=== PATIENT | female | born 1930 | race Caucasian/White ===

== ENCOUNTER 2017-11-10 07:41 | Inpatient (IN) | payer MEDICARE ==
[2017-11-10] MEDS: IV NORMAL SALINE 1000ML BAG 1,000 ML IV (07:51)
[2017-11-10 08:11] LABS: ADD MAN DIFF? NO
[2017-11-10] MEDS: ASPIRIN 325 MG TABLET PO (08:15)
[2017-11-10 08:18] LABS: BASO # 0.1 x10^3/uL (0.0-0.2); BASO % 1 % (0-3); EOS # 0.5 x10^3/uL (0.0-0.7); EOS % 4 % (0-3); HEMATOCRIT 38.9 % (36.0-47.0); HEMOGLOBIN 13.2 g/dL (12.0-15.5); LYMPH # 1.7 x10^3/uL (1.0-4.8); LYMPH % 16 % (24-48); MEAN CORPUSCULAR HEMOGLOBIN 33 pg (25-35); MEAN CORPUSCULAR HGB CONC 34 g/dL (31-37); MEAN CORPUSCULAR VOLUME 98 fL (79-100); MONO # 0.9 x10^3/uL (0.0-1.1); MONO % 8 % (0-9); NEUT # 7.8 x10^3uL (1.8-7.7); NEUT % 72 % (31-73); PLATELET COUNT 250 x10^3/uL (140-400); RED BLOOD COUNT 3.99 x10^6/uL (3.50-5.40); RED CELL DISTRIBUTION WIDTH 13.5 % (11.5-14.5); WHITE BLOOD COUNT 10.9 x10^3/uL (4.0-11.0)
[2017-11-10 08:38] LABS: PARTIAL THROMBOPLASTIN TIME 26 SEC (24-38); PROTHROMBIN TIME PATIENT 12.8 SEC (11.7-14.0)
[2017-11-10 08:52] LABS: POC GLUCOSE 94 mg/dL (70-99)
[2017-11-10 08:57] LABS: ANION GAP 7 (6-14); BLOOD UREA NITROGEN 25 mg/dL (7-20); BUN/CREATININE RATIO 15 (6-20); CALCIUM 8.9 mg/dL (8.5-10.1); CARBON DIOXIDE 26 mmol/L (21-32); CHLORIDE 103 mmol/L (98-107); CREATININE 1.7 mg/dL (0.6-1.0); GFR 28.3; GLUCOSE 105 mg/dL (70-99); POTASSIUM 4.2 mmol/L (3.5-5.1); SODIUM 136 mmol/L (136-145)
[2017-11-10 09:03] LABS: ALBUMIN/GLOBULIN RATIO 0.7 (1.0-1.7); ALK PHOS 55 U/L (46-116); ALT (SGPT) 33 U/L (14-59); AST (SGOT) 40 U/L (15-37); MAGNESIUM 2.1 mg/dL (1.8-2.4); TOTAL BILIRUBIN 0.5 mg/dL (0.2-1.0); TOTAL PROTEIN 7.1 g/dL (6.4-8.2)
[2017-11-10 09:12] LABS: BACTERIA,URINE 0 /HPF (0-FEW); BILIRUBIN,URINE NEGATIVE (NEG); CLARITY,URINE CLEAR; COLOR,URINE YELLOW; GLUCOSE,URINE NEGATIVE (NEG); NITRITE,URINE NEGATIVE (NEG); PH,URINE 7.5; PROTEIN,URINE 100 mg/dL (NEG-TRACE); RBC,URINE 0 /HPF (0-2); SQUAMOUS EPITHELIAL CELL,UR FEW /LPF; UROBILINOGEN,URINE 0.2 mg/dL (0.2 mg/dL); WBC,URINE 0 /HPF (0-4)
[2017-11-10] MEDS ORDERED: ACETAMINOPHEN 325 MG TABLET. PO (14:15)
[2017-11-10] MEDS ORDERED: ASPIRIN 300 MG SUPP.RECT PR (14:15)
[2017-11-10] MEDS: ENOXAPARIN 30 MG/0.3 ML SYRINGE. SQ (15:21)
[2017-11-10] MEDS: AMINO AC 3%/ELECTROLYTE/GLYCER 1,000 ML IV (15:21)
[2017-11-10] MEDS ORDERED: ENALAPRILAT 1.25 MG/ML VIAL. IV (18:00)
[2017-11-10] MEDS: ENALAPRILAT 1.25 MG/ML VIAL. IV (22:25)
[2017-11-11 00:13] LABS: MRSA BY PCR Negative (Negative)
[2017-11-11] MEDS: AMINO AC 3%/ELECTROLYTE/GLYCER 1,000 ML IV ×2 (04:07→17:40)
[2017-11-11 05:47] LABS: CHOLESTEROL 146 mg/dL (0-200); HDLC 47 mg/dL (40-60); LDLC 64 mg/dL (0-100); NON-HDL CHOLESTEROL 99 mg/dL (0-129); TRIGLYCERIDES 176 mg/dL (0-150); VLDLC 35 mg/dL (0-40)
[2017-11-11 05:53] LABS: CHOLESTEROL/HDL RATIO 3.1
[2017-11-11] MEDS: ASPIRIN 300 MG SUPP.RECT PR (12:45)
[2017-11-11] MEDS: ENOXAPARIN 30 MG/0.3 ML SYRINGE. SQ (12:46)
[2017-11-11] MEDS: ENALAPRILAT 1.25 MG/ML VIAL. IV (23:24)
[2017-11-12] MEDS: AMINO AC 3%/ELECTROLYTE/GLYCER 1,000 ML IV ×2 (05:37→19:31)
[2017-11-12] MEDS: ASPIRIN 300 MG SUPP.RECT PR (08:08)
[2017-11-12] MEDS: ENOXAPARIN 30 MG/0.3 ML SYRINGE. SQ (15:55)
[2017-11-13] MEDS: AMINO AC 3%/ELECTROLYTE/GLYCER 1,000 ML IV (08:23)
[2017-11-13] MEDS: ASPIRIN 300 MG SUPP.RECT PR (08:24)
[2017-11-13] MEDS ORDERED: ceFAZolin SODIUM 1 GM in IV DEXTROSE 5% 100ML 100 ML IV (11:00)
[2017-11-13] MEDS: ceFAZolin SODIUM IV Push 1 GM VIAL. IVP (13:13)
[2017-11-13] MEDS ORDERED: IV RINGERS,LACTATED 1000ML 1,000 ML IV (13:15)
[2017-11-13] MEDS: ENOXAPARIN 30 MG/0.3 ML SYRINGE. SQ (14:30)
[2017-11-14] MEDS: AMINO AC 3%/ELECTROLYTE/GLYCER 1,000 ML IV (00:20)
[2017-11-14] MEDS: ACETAMINOPHEN 650 MG SUPP.RECT. PR (02:32)
[2017-11-14 07:39] LABS: ADD MAN DIFF? NO
[2017-11-14 07:44] LABS: BASO % 0 % (0-3); EOS # 0.1 x10^3/uL (0.0-0.7); EOS % 1 % (0-3); HEMATOCRIT 35.9 % (36.0-47.0); HEMOGLOBIN 12.3 g/dL (12.0-15.5); LYMPH # 1.1 x10^3/uL (1.0-4.8); LYMPH % 11 % (24-48); MEAN CORPUSCULAR HEMOGLOBIN 33 pg (25-35); MEAN CORPUSCULAR HGB CONC 34 g/dL (31-37); MEAN CORPUSCULAR VOLUME 96 fL (79-100); MONO # 1.2 x10^3/uL (0.0-1.1); MONO % 11 % (0-9); NEUT # 7.9 x10^3uL (1.8-7.7); NEUT % 77 % (31-73); PLATELET COUNT 230 x10^3/uL (140-400); RED BLOOD COUNT 3.74 x10^6/uL (3.50-5.40); WHITE BLOOD COUNT 10.3 x10^3/uL (4.0-11.0)
[2017-11-14 08:43] LABS: ANION GAP 11 (6-14); BLOOD UREA NITROGEN 50 mg/dL (7-20); CALCIUM 8.5 mg/dL (8.5-10.1); CARBON DIOXIDE 20 mmol/L (21-32); CHLORIDE 98 mmol/L (98-107); CREATININE 1.3 mg/dL (0.6-1.0); GFR 38.6; GLUCOSE 96 mg/dL (70-99); POTASSIUM 4.5 mmol/L (3.5-5.1); SODIUM 129 mmol/L (136-145)
[2017-11-14] MEDS: ASPIRIN 325 MG TABLET PO (08:45)
[2017-11-15 07:50] LABS: ADD MAN DIFF? NO
[2017-11-15 07:58] LABS: BASO % 0 % (0-3); EOS # 0.4 x10^3/uL (0.0-0.7); EOS % 5 % (0-3); HEMATOCRIT 36.4 % (36.0-47.0); HEMOGLOBIN 12.4 g/dL (12.0-15.5); LYMPH # 0.9 x10^3/uL (1.0-4.8); LYMPH % 11 % (24-48); MEAN CORPUSCULAR HEMOGLOBIN 33 pg (25-35); MEAN CORPUSCULAR HGB CONC 34 g/dL (31-37); MEAN CORPUSCULAR VOLUME 96 fL (79-100); MONO # 0.9 x10^3/uL (0.0-1.1); MONO % 10 % (0-9); NEUT # 6.2 x10^3uL (1.8-7.7); NEUT % 74 % (31-73); PLATELET COUNT 276 x10^3/uL (140-400); RED CELL DISTRIBUTION WIDTH 13.3 % (11.5-14.5); WHITE BLOOD COUNT 8.4 x10^3/uL (4.0-11.0)
[2017-11-15 08:16] LABS: BLOOD UREA NITROGEN 45 mg/dL (7-20); CALCIUM 8.7 mg/dL (8.5-10.1); CREATININE 1.2 mg/dL (0.6-1.0); GLUCOSE 102 mg/dL (70-99)
[2017-11-15 08:17] LABS: ANION GAP 12 (6-14); CARBON DIOXIDE 20 mmol/L (21-32); CHLORIDE 100 mmol/L (98-107); GFR 42.3; POTASSIUM 4.3 mmol/L (3.5-5.1); SODIUM 132 mmol/L (136-145)
[2017-11-15] MEDS: ASPIRIN 325 MG TABLET PEG (08:36)
== END 2017-11-15 16:33 | DRG 64 ==
LOC: 6 SOUTH 11-11 18:56 → ER 07:41 → 2 SOUTH 09:00
PROVIDERS: Internal Medicine
PROC: 0DH68UZ Insertion of Feeding Device into Stomach, Via Natural or Artificial Opening Endoscopic (ICD-10-PCS; principal; 2017-11-13 14:12)
DX: I63.512 Cerebral infarction due to unspecified occlusion or stenosis of left middle cerebral artery (principal); N17.0 Acute kidney failure with tubular necrosis; I69.351 Hemiplegia and hemiparesis following cerebral infarction affecting right dominant side; E78.5 Hyperlipidemia, unspecified; F03.90 Unspecified dementia, unspecified severity, without behavioral disturbance, psychotic disturbance, mood disturbance, and anxiety; F31.9 Bipolar disorder, unspecified; I69.320 Aphasia following cerebral infarction; K21.9 Gastro-esophageal reflux disease without esophagitis; K44.9 Diaphragmatic hernia without obstruction or gangrene; M06.9 Rheumatoid arthritis, unspecified; M19.041 Primary osteoarthritis, right hand; R13.12 Dysphagia, oropharyngeal phase; Z96.641 Presence of right artificial hip joint; K22.2 Esophageal obstruction; R62.7 Adult failure to thrive; Z66 Do not resuscitate; Z82.49 Family history of ischemic heart disease and other diseases of the circulatory system; Z90.12 Acquired absence of left breast and nipple; Z85.3 Personal history of malignant neoplasm of breast; Z88.2 Allergy status to sulfonamides; Z88.8 Allergy status to other drugs, medicaments and biological substances
CPT/HCPCS: 36415; 70450; 70551; 71045; 80048; 80053; 80061; 81001; 82962; 83735; 85025; 85610; 85730; 87641; 92526-GN; 92610-GN; 93005; 93306; 93880; 96360; 97110-GO; 97162-GP; 97166-GO; 97530-GO; 97530-GP; 97535-GO; 99285; 99285-25; J0690; J1650; J7030; P9612

== ENCOUNTER 2017-11-21 17:43 | Inpatient (IN) | payer MEDICARE, OTHER ==
[~2017-11-21] VITALS: Ht 165.1 cm; Wt 447.2 kg
--- NOTE | 2017-11-21 18:06 | PHYS DOC ---
Past Medical History Past Medical History: Bipolar, CAD, Cancer, Constipation, Depression, High Cholesterol Additional Past Medical Histor: BREAST CANCNER Past Surgical History: Other Additional Past Surgical Histo: L MASECTOMY, UNKNOWN OTHER SX Alcohol Use: None Adult General Chief Complaint Chief Complaint: SHORTNESS OF BREATH [facility] HPI Patient is a 87 year old with a history of a stroke in October (residual aphasia and right-sided hemiparesis) presents the ED for abnormal labs times one day ago. Sent to the ED by assisted-living facility for possible pneumonia, elevated white count and coarse breath sounds. Patient unable to provide history as she is aphasic. Review of Systems Review of Systems Constitutional: Denies fever or chills [] Eyes: Denies change in visual acuity, redness, or eye pain [] HENT: Denies nasal congestion or sore throat [] Respiratory: Denies cough or shortness of breath [] Cardiovascular: No additional information not addressed in HPI [] GI: Denies abdominal pain, nausea, vomiting, bloody stools or diarrhea [] : Denies dysuria or hematuria [] Musculoskeletal: Denies back pain or joint pain [] Integument: Denies rash or skin lesions [] Neurologic: Denies headache, focal weakness or sensory changes [] All other systems were reviewed and found to be within normal limits, except as documented in this note. Current Medications Current Medications Allergies Allergies Allergies Coded Allergies Type Severity Reaction Last Updated Verified sulfamethoxazole Allergy Intermediate 11/13/17 Yes trimethoprim Allergy Intermediate 11/13/17 Yes Physical Exam Physical Exam Constitutional: no acute distress, non-toxic appearance. [] HENT: Normocephalic, atraumatic, bilateral external ears normal, oropharynx moist, no oral exudates, nose normal. [] Eyes: PERRLA, EOMI, conjunctiva normal, no discharge. [] Neck: Normal range of motion, no tenderness, supple, no stridor. [] Cardiovascular:Heart rate regular rhythm, no murmur [] Lungs & Thorax: Bilateral breath sounds clear to auscultation [] Abdomen: Bowel sounds normal, soft, no tenderness, no masses, no pulsatile masses. [] Skin: Warm, dry, no erythema, no rash. [] Back: No tenderness, no CVA tenderness. [] Extremities: No tenderness, no cyanosis, no clubbing, ROM intact, no edema. [] Neurologic: aphasic, right hemiparesis. Psychologic: Affect normal, judgement normal, mood normal. [] Current Patient Data Vital Signs Vital Signs Date Time Temp Pulse Resp B/P (MAP) Pulse Ox O2 Delivery O2 Flow Rate FiO2 11/21/17 17:55 98.1 87 22 156/93 (114) 95 Room Air 98.1 Lab Values Laboratory Tests Test 11/21/17 18:25 11/21/17 18:44 White Blood Count 14.4 x10^3/uL (4.0-11.0) H Red Blood Count 3.71 x10^6/uL (3.50-5.40) Hemoglobin 11.8 g/dL (12.0-15.5) L Hematocrit 34.9 % (36.0-47.0) L Mean Corpuscular Volume 94 fL (79-100) Mean Corpuscular Hemoglobin 32 pg (25-35) Mean Corpuscular Hemoglobin Concent 34 g/dL (31-37) Red Cell Distribution Width 13.1 % (11.5-14.5) Platelet Count 466 x10^3/uL (140-400) H Neutrophils (%) (Auto) 79 % (31-73) H Lymphocytes (%) (Auto) 11 % (24-48) L Monocytes (%) (Auto) 9 % (0-9) Eosinophils (%) (Auto) 1 % (0-3) Basophils (%) (Auto) 1 % (0-3) Neutrophils # (Auto) 11.3 x10^3uL (1.8-7.7) H Lymphocytes # (Auto) 1.5 x10^3/uL (1.0-4.8) Monocytes # (Auto) 1.3 x10^3/uL (0.0-1.1) H Eosinophils # (Auto) 0.1 x10^3/uL (0.0-0.7) Basophils # (Auto) 0.1 x10^3/uL (0.0-0.2) Lactic Acid Level 1.2 mmol/L (0.4-2.0) Sodium Level 130 mmol/L (136-145) L Potassium Level 4.7 mmol/L (3.5-5.1) Chloride Level 96 mmol/L (98-107) L Carbon Dioxide Level 26 mmol/L (21-32) Anion Gap 8 (6-14) Blood Urea Nitrogen 46 mg/dL (7-20) H Creatinine 1.1 mg/dL (0.6-1.0) H Estimated GFR (Cockcroft-Gault) 46.8 BUN/Creatinine Ratio 42 (6-20) H Glucose Level 105 mg/dL (70-99) H Calcium Level 9.4 mg/dL (8.5-10.1) Total Bilirubin 0.3 mg/dL (0.2-1.0) Aspartate Amino Transferase (AST) 57 U/L (15-37) H Alanine Aminotransferase (ALT) 75 U/L (14-59) H Alkaline Phosphatase 66 U/L (46-116) Troponin I Quantitative < 0.017 ng/mL (0.000-0.055) JQ-Tws-D-Type Natriuretic Peptide 1190 pg/mL (0-449) H Total Protein 7.1 g/dL (6.4-8.2) Albumin 2.6 g/dL (3.4-5.0) L Albumin/Globulin Ratio 0.6 (1.0-1.7) L Lipase 218 U/L (73-393) Thyroid Stimulating Hormone (TSH) 1.768 uIU/mL (0.358-3.74) Laboratory Tests 11/21/17 18:25 Laboratory Tests 11/21/17 18:44 Microbiology 11/21/17 Blood Culture - Preliminary, Resulted NO GROWTH AFTER 1 DAY EKG EKG EKG shows sinus rhythm at 81 BPM. T wave inversion in V3, V4, V5. No STEMI.[] Radiology/Procedures Radiology/Procedures [] Course & Med Decision Making Course & Med Decision Making Pertinent Labs and Imaging studies reviewed. (See chart for details) Family at bedside provides further history. Noting decline since stroke in October. Discussed labs and imaging with family. Left sided pneumonia. Will treat with zosyn and vanco. []Discussed case with hospitalist, Dr. Gonzales. Agrees to admission and further management of patient. Patient stable for admission. Dragon Disclaimer Dragon Disclaimer This electronic medical record was generated, in whole or in part, using a voice recognition dictation system. Departure Departure Impression: Primary Impression: Pneumonia Additional Impressions: UTI (urinary tract infection) Hyponatremia Disposition: ADMITTED INPATIENT Admitting Physician: Etta Gonzales Condition: STABLE Referrals: ELDA DE LA CRUZ MD (PCP) Problem Qualifiers CESAR MENA Nov 21, 2017 18:06
[2017-11-21 18:40] LABS: BASO # 0.1 x10^3/uL (0.0-0.2); BASO % 1 % (0-3); EOS # 0.1 x10^3/uL (0.0-0.7); EOS % 1 % (0-3); HEMATOCRIT 34.9 % (36.0-47.0); HEMOGLOBIN 11.8 g/dL (12.0-15.5); LYMPH # 1.5 x10^3/uL (1.0-4.8); LYMPH % 11 % (24-48); MEAN CORPUSCULAR HEMOGLOBIN 32 pg (25-35); MEAN CORPUSCULAR HGB CONC 34 g/dL (31-37); MEAN CORPUSCULAR VOLUME 94 fL (79-100); MONO # 1.3 x10^3/uL (0.0-1.1); MONO % 9 % (0-9); NEUT # 11.3 x10^3uL (1.8-7.7); NEUT % 79 % (31-73); PLATELET COUNT 466 x10^3/uL (140-400); RED BLOOD COUNT 3.71 x10^6/uL (3.50-5.40); RED CELL DISTRIBUTION WIDTH 13.1 % (11.5-14.5); WHITE BLOOD COUNT 14.4 x10^3/uL (4.0-11.0)
[2017-11-21 19:23] LABS: CALCIUM 9.4 mg/dL (8.5-10.1); CREATININE 1.1 mg/dL (0.6-1.0); GFR 46.8; POTASSIUM 4.7 mmol/L (3.5-5.1)
[2017-11-21 19:28] LABS: ALBUMIN 2.6 g/dL (3.4-5.0); ALBUMIN/GLOBULIN RATIO 0.6 (1.0-1.7); TOTAL BILIRUBIN 0.3 mg/dL (0.2-1.0); TOTAL PROTEIN 7.1 g/dL (6.4-8.2)
[2017-11-21] MEDS ORDERED: VANCOMYCIN 1GM IVPB FOR OMNI 250 ML IV ONE (20:00)
[2017-11-21] MEDS ORDERED: PIPERACILLIN/TAZOBACTAM 4.5 GM in IV NORMAL SALINE 100ML 100 ML IV ONE (20:00)
[2017-11-21] MEDS ORDERED: PIPERACILLIN/TAZOBACTAM 3.375 GM in IV NORMAL SALINE 50ML 50 ML IV ONE (20:00)
[2017-11-21 20:20] LABS: BILIRUBIN,URINE NEGATIVE (NEG); CLARITY,URINE CLEAR; COLOR,URINE YELLOW; NITRITE,URINE POSITIVE (NEG); PROTEIN,URINE NEGATIVE (NEG-TRACE); UROBILINOGEN,URINE 0.2 mg/dL (0.2 mg/dL)
[2017-11-21 20:26] LABS: BACTERIA,URINE MANY /HPF (0-FEW); RBC,URINE OCC /HPF (0-2); SQUAMOUS EPITHELIAL CELL,UR FEW /LPF
[2017-11-21] MEDS ORDERED: ONDANSETRON PF 4 MG/2 ML VIAL. IV PRN (20:45)
[2017-11-21] MEDS ORDERED: fentaNYL PF VIAL 100 MCG/2 ML VIAL IV PRN (20:45)
[2017-11-21] MEDS ORDERED: ACETAMINOPHEN 325 MG TABLET. PO PRN (20:45)
[2017-11-21] MEDS ORDERED: FLUV100T2 PO (22:25)
[2017-11-21] MEDS ORDERED: ONDA4TAB7 PO (22:25)
[2017-11-21] MEDS ORDERED: [UNRECOGNIZED DRUG - CODE] PO (22:25)
[2017-11-21] MEDS ORDERED: TRAZ-85 PO (22:25)
[2017-11-21] MEDS ORDERED: DOCU50LI PO (22:25)
[2017-11-21] MEDS ORDERED: MAGN400O7 PO (22:25)
[2017-11-21] MEDS ORDERED: CALC1CAP7 PO (22:25)
[2017-11-21] MEDS ORDERED: BISA5TAB6 PO (22:25)
[2017-11-21] MEDS ORDERED: CYCL1DRO EACHEYE (22:25)
[2017-11-21] MEDS ORDERED: ACET325T9 PO (22:25)
[2017-11-21] MEDS ORDERED: MAG355OR12 PO ×2 (22:25)
[2017-11-21] MEDS ORDERED: MULT1TAB52 PO (22:25)
[2017-11-21] MEDS ORDERED: TRIF5TAB PO (22:25)
[2017-11-21] MEDS ORDERED: SCOP1PAT11 TP (22:25)
[2017-11-21] MEDS ORDERED: LEVO25TA4 PO (22:25)
[2017-11-21] MEDS ORDERED: MICO45CR3 VG (22:25)
[2017-11-21] MEDS ORDERED: MIRT15TA PO (22:25)
[2017-11-21] MEDS ORDERED: LOPE2TAB27 PO (22:25)
[2017-11-21] MEDS ORDERED: ASPI325T8 PO (22:25)
--- NOTE | 2017-11-21 22:28 | PDOC1 ---
History and Physical Date of Admission Date of Admission DATE: 11/21/17 TIME: 22:27 Source Source: Chart review History of Present Illness History of Present Illness Luana Mclean is a 87 year old seenin ER 17 for some distress above baseline, sent by her facility for coarse breath sounds, an dnoted to have leukocytosis on labs. Scant history as she is aphasic with right-sided hemiparesis s/p CVA about 1 month ago, she presneted with fever, and tachycardia and tachypnea. Past Medical History Cardiovascular: Hyperlipidemia, Other CENTRAL NERVOUS SYSTEM: CVA Heme/Onc: Cancer Psych: Bipolar, Depression Rheumatologic: Rheumatoid arthritis Past Surgical History Past Surgical History: Total hip replacement Social History ALCOHOL: none Drugs: None Current Problem List Problem List Problems Medical Problems: (1) Hyponatremia Status: Acute (2) Pneumonia Status: Acute (3) UTI (urinary tract infection) Status: Acute Current Medications Current Medications Current Medications Vancomycin HCl 250 ml @ 250 mls/hr 1X ONCE IV ; Start 11/21/17 at 20:00; Stop 11/21/17 at 20:59; Status DC Piperacillin Sod/ Tazobactam Sod 4.5 gm/Sodium Chloride 100 ml @ 200 mls/hr 1X ONCE IV ; Start 11/21/17 at 20:00; Stop 11/21/17 at 20:29; Status Cancel Piperacillin Sod/ Tazobactam Sod 3.375 gm/Sodium Chloride 50 ml @ 100 mls/hr ONCE ONCE IV Last administered on 11/21/17at 20:35; Start 11/21/17 at 20:00; Stop 11/21/17 at 20:29; Status DC Ondansetron HCl (Zofran) 4 mg PRN Q8HRS PRN IV NAUSEA/VOMITING; Start 11/21/17 at 20:45; Stop 11/22/17 at 20:44 Fentanyl Citrate (Fentanyl 2ml Vial) 50 mcg PRN Q1HR PRN IV PAIN; Start at 20:45; Stop 11/22/17 at 20:44 Acetaminophen (Tylenol) 650 mg PRN Q4HRS PRN PO FEVER; Start 11/21/17 at 20:45; Stop 11/22/17 at 20:44 Active Scripts Active Reported Transderm-Scop (Scopolamine) 1 Each Patch.td72 1 Patch TP Q3DAYS Levothyroxine Sodium 25 Mcg Tablet 1 Tab PO DAILY Trifluoperazine Hcl 5 Mg Tablet 5 Mg PO DAILY Loperamide (Loperamide Hcl) 2 Mg Tablet 4 Mg PO PRN Q1HR PRN Remeron (Mirtazapine) 15 Mg Tablet 1 Tab PO DAILY Fluvoxamine Maleate 100 Mg Tablet 1 Tab PO DAILY Trazodone Hcl 50 Mg Tablet 1 Tab PO QHS Fibersource Hn Liquid (Nutrit Supp/Inulin/Fos/Fiber) 1,500 Ml Liquid 1,500 Ml PO Q8HRS Maalox Maximum Strength Susp (Mag Hydrox/Al Hydrox/Simeth) 355 Ml Oral.susp 355 Ml PO PRN Q6HRS PRN Maalox Maximum Strength Susp (Mag Hydrox/Al Hydrox/Simeth) 355 Ml Oral.susp 355 Ml PO Milk Of Magnesia (Magnesium Hydroxide) 400 Mg/5 Ml Oral.susp 400 Mg PO PRN BID PRN Tylenol (Acetaminophen) 325 Mg Tablet 2 Tab PO PRN Q6HRS PRN Tylenol (Acetaminophen) 325 Mg Tablet 2 Tab PO PRN Q6HRS PRN Restasis (Cyclosporine) 1 Each Droperette 1 Drop EACHEYE BID Multivitamins (Multivitamin) 1 Each Tablet 1 Tab PO DAILY Miconazole Nitrate 45 Gm Cream.appl 45 Gm VG Women's Laxative (Bisacodyl) 5 Mg Tablet 5 Mg PO Aspirin 325 Mg Tablet 1 Tab PO DAILY Calcium 600 + Vit D 400 Softgl (Calcium Carbonate/Vitamin D3) 1 Each Capsule 1 Each PO Docusate Sodium 50 Mg/5 Ml Liquid 50 Mg PO Zofran (Ondansetron Hcl) 4 Mg Tablet 1 Tab PO Q6HRS Allergies Allergies: Coded Allergies: sulfamethoxazole (Verified Allergy, Intermediate, 11/13/17) trimethoprim (Verified Allergy, Intermediate, 11/13/17) ROS Review of System unable to complete Physical Exam General: Cooperative, mild distress HEENT: EOMI Lungs: Other (rhonchi, no wheeze) Heart: no murmurs Extremities: No edema Neuro: Normal tone, Cranial nerves 3-12 NL, Other Psych/Mental Status: Other (flat, aphasic ) Vitals Vitals Vital Signs Date Time Temp Pulse Resp B/P (MAP) Pulse Ox O2 Delivery O2 Flow Rate FiO2 11/21/17 17:55 98.1 87 22 156/93 (114) 95 Room Air 98.1 Labs Labs Laboratory Tests Test 11/21/17 18:25 11/21/17 18:44 11/21/17 20:10 White Blood Count 14.4 x10^3/uL (4.0-11.0) Red Blood Count 3.71 x10^6/uL (3.50-5.40) Hemoglobin 11.8 g/dL (12.0-15.5) Hematocrit 34.9 % (36.0-47.0) Mean Corpuscular Volume 94 fL (79-100) Mean Corpuscular Hemoglobin 32 pg (25-35) Mean Corpuscular Hemoglobin Concent 34 g/dL (31-37) Red Cell Distribution Width 13.1 % (11.5-14.5) Platelet Count 466 x10^3/uL (140-400) Neutrophils (%) (Auto) 79 % (31-73) Lymphocytes (%) (Auto) 11 % (24-48) Monocytes (%) (Auto) 9 % (0-9) Eosinophils (%) (Auto) 1 % (0-3) Basophils (%) (Auto) 1 % (0-3) Neutrophils # (Auto) 11.3 x10^3uL (1.8-7.7) Lymphocytes # (Auto) 1.5 x10^3/uL (1.0-4.8) Monocytes # (Auto) 1.3 x10^3/uL (0.0-1.1) Eosinophils # (Auto) 0.1 x10^3/uL (0.0-0.7) Basophils # (Auto) 0.1 x10^3/uL (0.0-0.2) Lactic Acid Level 1.2 mmol/L (0.4-2.0) Sodium Level 130 mmol/L (136-145) Potassium Level 4.7 mmol/L (3.5-5.1) Chloride Level 96 mmol/L (98-107) Carbon Dioxide Level 26 mmol/L (21-32) Anion Gap 8 (6-14) Blood Urea Nitrogen 46 mg/dL (7-20) Creatinine 1.1 mg/dL (0.6-1.0) Estimated GFR (Cockcroft-Gault) 46.8 BUN/Creatinine Ratio 42 (6-20) Glucose Level 105 mg/dL (70-99) Calcium Level 9.4 mg/dL (8.5-10.1) Total Bilirubin 0.3 mg/dL (0.2-1.0) Aspartate Amino Transf (AST/SGOT) 57 U/L (15-37) Alanine Aminotransferase (ALT/SGPT) 75 U/L (14-59) Alkaline Phosphatase 66 U/L (46-116) Troponin I Quantitative < 0.017 ng/mL (0.000-0.055) JD-Ewp-N-Type Natriuretic Peptide 1190 pg/mL (0-449) Total Protein 7.1 g/dL (6.4-8.2) Albumin 2.6 g/dL (3.4-5.0) Albumin/Globulin Ratio 0.6 (1.0-1.7) Lipase 218 U/L (73-393) Thyroid Stimulating Hormone (TSH) 1.768 uIU/mL (0.358-3.74) Urine Collection Type Unknown Urine Color Yellow Urine Clarity Clear Urine pH 7.0 Urine Specific [place] 1.015 Urine Protein Negative mg/dL (NEG-TRACE) Urine Glucose (UA) Negative mg/dL (NEG) Urine Ketones (Stick) Negative mg/dL (NEG) Urine Blood Negative (NEG) Urine Nitrite Positive (NEG) Urine Bilirubin Negative (NEG) Urine Urobilinogen Dipstick 0.2 mg/dL (0.2 mg/dL) Urine Leukocyte Esterase Large (NEG) Urine RBC Occ /HPF (0-2) Urine WBC 5-10 /HPF (0-4) Urine Squamous Epithelial Cells Few /LPF Urine Renal Epithelial Cells Occ /LPF Urine Bacteria Many /HPF (0-FEW) Laboratory Tests Test 11/21/17 18:25 11/21/17 18:44 11/21/17 20:10 White Blood Count 14.4 x10^3/uL (4.0-11.0) Red Blood Count 3.71 x10^6/uL (3.50-5.40) Hemoglobin 11.8 g/dL (12.0-15.5) Hematocrit 34.9 % (36.0-47.0) Mean Corpuscular Volume 94 fL (79-100) Mean Corpuscular Hemoglobin 32 pg (25-35) Mean Corpuscular Hemoglobin Concent 34 g/dL (31-37) Red Cell Distribution Width 13.1 % (11.5-14.5) Platelet Count 466 x10^3/uL (140-400) Neutrophils (%) (Auto) 79 % (31-73) Lymphocytes (%) (Auto) 11 % (24-48) Monocytes (%) (Auto) 9 % (0-9) Eosinophils (%) (Auto) 1 % (0-3) Basophils (%) (Auto) 1 % (0-3) Neutrophils # (Auto) 11.3 x10^3uL (1.8-7.7) Lymphocytes # (Auto) 1.5 x10^3/uL (1.0-4.8) Monocytes # (Auto) 1.3 x10^3/uL (0.0-1.1) Eosinophils # (Auto) 0.1 x10^3/uL (0.0-0.7) Basophils # (Auto) 0.1 x10^3/uL (0.0-0.2) Lactic Acid Level 1.2 mmol/L (0.4-2.0) Sodium Level 130 mmol/L (136-145) Potassium Level 4.7 mmol/L (3.5-5.1) Chloride Level 96 mmol/L (98-107) Carbon Dioxide Level 26 mmol/L (21-32) Anion Gap 8 (6-14) Blood Urea Nitrogen 46 mg/dL (7-20) Creatinine 1.1 mg/dL (0.6-1.0) Estimated GFR (Cockcroft-Gault) 46.8 BUN/Creatinine Ratio 42 (6-20) Glucose Level 105 mg/dL (70-99) Calcium Level 9.4 mg/dL (8.5-10.1) Total Bilirubin 0.3 mg/dL (0.2-1.0) Aspartate Amino Transf (AST/SGOT) 57 U/L (15-37) Alanine Aminotransferase (ALT/SGPT) 75 U/L (14-59) Alkaline Phosphatase 66 U/L (46-116) Troponin I Quantitative < 0.017 ng/mL (0.000-0.055) PZ-Dob-T-Type Natriuretic Peptide 1190 pg/mL (0-449) Total Protein 7.1 g/dL (6.4-8.2) Albumin 2.6 g/dL (3.4-5.0) Albumin/Globulin Ratio 0.6 (1.0-1.7) Lipase 218 U/L (73-393) Thyroid Stimulating Hormone (TSH) 1.768 uIU/mL (0.358-3.74) Urine Collection Type Unknown Urine Color Yellow Urine Clarity Clear Urine pH 7.0 Urine Specific [place] 1.015 Urine Protein Negative mg/dL (NEG-TRACE) Urine Glucose (UA) Negative mg/dL (NEG) Urine Ketones (Stick) Negative mg/dL (NEG) Urine Blood Negative (NEG) Urine Nitrite Positive (NEG) Urine Bilirubin Negative (NEG) Urine Urobilinogen Dipstick 0.2 mg/dL (0.2 mg/dL) Urine Leukocyte Esterase Large (NEG) Urine RBC Occ /HPF (0-2) Urine WBC 5-10 /HPF (0-4) Urine Squamous Epithelial Cells Few /LPF Urine Renal Epithelial Cells Occ /LPF Urine Bacteria Many /HPF (0-FEW) VTE Prophylaxis Ordered VTE Prophylaxis Devices: No VTE Pharmacological Prophylaxi: Yes Assessment/Plan Assessment/Plan sepsis UTI acute systolic CHF, possible from sepsis concern aspiration pneumonia, but CXR appears fluid, Vanc and zosyn given, will cont. zosyn, consult ID and PULM mod malnutritoin, restart PEG tube feeds KALEY Syed MD Nov 21, 2017 22:28
[2017-11-21 23:00] VITALS: BP 171/84
--- NOTE | 2017-11-21 23:14 | RAD ---
AP portable chest radiograph 11/21/2017 Clinical History: Shortness of breath. An AP erect portable digital radiograph of the chest was obtained. Comparison study is dated 11/10/2017. The cardiac silhouette is mildly enlarged. Atherosclerotic calcification of the thoracic aorta is seen. A gastrostomy tube overlies the body of the stomach. The thoracic aorta is mildly tortuous. Increasing congestive changes are seen involving both lungs. No area of consolidation is seen. No pneumothorax is noted. The osseous structures are unchanged. Impression: Increasing CHF. Electronically signed by: Frank Neil MD (11/21/2017 11:10 PM) [facility]
[2017-11-21] MEDS: POTASSIUM CL 20MEQ D5-0.45NACL 1,000 ML IV SCH (23:27)
[2017-11-22 03:00] VITALS: BP 126/75
[2017-11-22 04:00] LABS: BASO % 0 % (0-3); EOS # 0.3 x10^3/uL (0.0-0.7); EOS % 2 % (0-3); HEMATOCRIT 32.3 % (36.0-47.0); HEMOGLOBIN 10.9 g/dL (12.0-15.5); LYMPH # 1.7 x10^3/uL (1.0-4.8); LYMPH % 14 % (24-48); MEAN CORPUSCULAR HEMOGLOBIN 32 pg (25-35); MEAN CORPUSCULAR HGB CONC 34 g/dL (31-37); MEAN CORPUSCULAR VOLUME 95 fL (79-100); MONO # 1.3 x10^3/uL (0.0-1.1); MONO % 10 % (0-9); NEUT # 9.1 x10^3uL (1.8-7.7); NEUT % 73 % (31-73); PLATELET COUNT 413 x10^3/uL (140-400); WHITE BLOOD COUNT 12.4 x10^3/uL (4.0-11.0)
[2017-11-22 04:25] LABS: ALBUMIN 2.2 g/dL (3.4-5.0); ALBUMIN/GLOBULIN RATIO 0.7 (1.0-1.7); CALCIUM 8.1 mg/dL (8.5-10.1); CREATININE 1.1 mg/dL (0.6-1.0); GFR 46.8; POTASSIUM 4.9 mmol/L (3.5-5.1); TOTAL BILIRUBIN 0.4 mg/dL (0.2-1.0); TOTAL PROTEIN 5.5 g/dL (6.4-8.2)
[2017-11-22 07:00] VITALS: BP 97/56
[2017-11-22] MEDS ORDERED: LOPERAMIDE 2 MG CAPSULE PO PRN ×2 (07:15)
[2017-11-22] MEDS ORDERED: PIP/TAZO PER PHARMACY MC PRN (07:15)
[2017-11-22] MEDS ORDERED: ACETAMINOPHEN 325 MG TABLET. PO PRN ×2 (07:15)
[2017-11-22] MEDS ORDERED: MAGNESIUM HYDROXIDE 2,400 MG/30 ML ORAL.SUSP. PO PRN (07:15)
[2017-11-22] MEDS ORDERED: MAG HYDROX/ALUMINUM HYD/SIMETH 30 ML ORAL.SUSP PO PRN (07:15)
--- NOTE | 2017-11-22 07:34 | EKG ---
[facility] [address] [place] [address] Test Date: 2017-11-21 Test Time: 19:09:55 Pat Name: SCARLET OAKLEY Department: Room: Gender: F [employer]: : [id number] Requested By: CESAR MENA Order Number: [id number] Reading MD: Measurements Intervals [place] Rate: 81 P: 90 GA: 98 QRS: 28 QRSD: 84 T: 19 QT: 422 QTc: 496 Interpretive Statements SINUS RHYTHM MODERATE AMPLITUDE CRITERIA FOR LVH T ABNORMALITY IN ANTERIOR LEADS PROLONGED QT ABNORMAL ECG No previous ECG available for comparison
[2017-11-22] MEDS: MULTIVITAMIN with MINERAL TABLET. PO SCH (08:24)
[2017-11-22] MEDS: PIPERACILLIN/TAZOBACTAM 2.25 GM in IV NORMAL SALINE 50ML 50 ML IV SCH ×4 (08:24→23:55)
[2017-11-22] MEDS: ONDANSETRON ODT 4 MG TAB.RAPDIS. PO SCH ×3 (08:25→18:26)
[2017-11-22] MEDS: cycloSPORINE 0.05% OPTH 1 DROP DROPERETTE OU SCH ×2 (08:25→21:13)
[2017-11-22] MEDS: ASPIRIN 325 MG TABLET PO SCH (08:25)
[2017-11-22] MEDS: LEVOTHYROXINE 25 MCG TABLET. PO SCH (08:25)
[2017-11-22] MEDS: SCOPOLAMINE 1.5MG PATCH. TD SCH (08:25)
[2017-11-22] MEDS: DOCUSATE 100 MG/10 ML SOLUTION. PO SCH (08:28)
[2017-11-22] MEDS: POTASSIUM CL 20MEQ D5-0.45NACL 1,000 ML IV SCH ×2 (08:39→19:00)
[2017-11-22 11:00] VITALS: BP 105/48
[2017-11-22] MEDS ORDERED: VANCOMYCIN PER PHARMACY MC PRN (11:00)
--- NOTE | 2017-11-22 11:03 | PDOC ---
PROGRESS NOTES Chief Complaint Chief Complaint she is aphasic with right-sided hemiparesis s/p CVA about 1 month [employer] she presneted with fever, and tachycardia and tachypnea. History of Present Illness History of Present Illness Assessment/Plan Assessment/Plan dementia sepsis UTI pre-renal azotemia acute systolic CHF, possible from sepsis concern aspiration pneumonia, but CXR appears fluid, Vanc and zosyn given, will cont. zosyn, consult ID and PULM mod malnutritoin, restart PEG tube feeds 50cc/hr recent cva Vitals Vitals Vital Signs Date Time Temp Pulse Resp B/P (MAP) Pulse Ox O2 Delivery O2 Flow Rate FiO2 11/22/17 08:00 Room Air 11/22/17 07:00 98.1 69 18 97/56 (70) 95 98.1 Physical Exam General: Cooperative, mild distress Heart: Regular rate, Gallops Lungs: Crackles Abdomen: Soft, No tenderness Extremities: No clubbing, No cyanosis, No edema Labs LABS AP portable chest radiograph 11/21/2017 Clinical History: Shortness of breath. An AP erect portable digital radiograph of the chest was obtained. Comparison study is dated 11/10/2017. The cardiac silhouette is mildly enlarged. Atherosclerotic calcification of the thoracic aorta is seen. A gastrostomy tube overlies the body of the stomach. The thoracic aorta is mildly tortuous. Increasing congestive changes are seen involving both lungs. No area of consolidation is seen. No pneumothorax is noted. The osseous structures are unchanged. Impression: Increasing CHF. Electronically signed by: Frank Neil MD (11/21/2017 11:10 PM) [facility] Laboratory Tests Test 11/21/17 18:25 11/21/17 18:44 11/21/17 20:10 11/22/17 02:40 White Blood Count 14.4 x10^3/uL (4.0-11.0) Red Blood Count 3.71 x10^6/uL (3.50-5.40) Hemoglobin 11.8 g/dL (12.0-15.5) Hematocrit 34.9 % (36.0-47.0) Mean Corpuscular Volume 94 fL (79-100) Mean Corpuscular Hemoglobin 32 pg (25-35) Mean Corpuscular Hemoglobin Concent 34 g/dL (31-37) Red Cell Distribution Width 13.1 % (11.5-14.5) Platelet Count 466 x10^3/uL (140-400) Neutrophils (%) (Auto) 79 % (31-73) Lymphocytes (%) (Auto) 11 % (24-48) Monocytes (%) (Auto) 9 % (0-9) Eosinophils (%) (Auto) 1 % (0-3) Basophils (%) (Auto) 1 % (0-3) Neutrophils # (Auto) 11.3 x10^3uL (1.8-7.7) Lymphocytes # (Auto) 1.5 x10^3/uL (1.0-4.8) Monocytes # (Auto) 1.3 x10^3/uL (0.0-1.1) Eosinophils # (Auto) 0.1 x10^3/uL (0.0-0.7) Basophils # (Auto) 0.1 x10^3/uL (0.0-0.2) Lactic Acid Level 1.2 mmol/L (0.4-2.0) Sodium Level 130 mmol/L (136-145) 131 mmol/L (136-145) Potassium Level 4.7 mmol/L (3.5-5.1) 4.9 mmol/L (3.5-5.1) Chloride Level 96 mmol/L (98-107) 98 mmol/L (98-107) Carbon Dioxide Level 26 mmol/L (21-32) 23 mmol/L (21-32) Anion Gap 8 (6-14) 10 (6-14) Blood Urea Nitrogen 46 mg/dL (7-20) 41 mg/dL (7-20) Creatinine 1.1 mg/dL (0.6-1.0) 1.1 mg/dL (0.6-1.0) Estimated GFR (Cockcroft-Gault) 46.8 46.8 BUN/Creatinine Ratio 42 (6-20) 37 (6-20) Glucose Level 105 mg/dL (70-99) 110 mg/dL (70-99) Calcium Level 9.4 mg/dL (8.5-10.1) 8.1 mg/dL (8.5-10.1) Total Bilirubin 0.3 mg/dL (0.2-1.0) 0.4 mg/dL (0.2-1.0) Aspartate Amino Transf (AST/SGOT) 57 U/L (15-37) 58 U/L (15-37) Alanine Aminotransferase (ALT/SGPT) 75 U/L (14-59) 68 U/L (14-59) Alkaline Phosphatase 66 U/L (46-116) 63 U/L (46-116) Troponin I Quantitative < 0.017 ng/mL (0.000-0.055) < 0.017 ng/mL (0.000-0.055) SG-Jpo-Q-Type Natriuretic Peptide 1190 pg/mL (0-449) Total Protein 7.1 g/dL (6.4-8.2) 5.5 g/dL (6.4-8.2) Albumin 2.6 g/dL (3.4-5.0) 2.2 g/dL (3.4-5.0) Albumin/Globulin Ratio 0.6 (1.0-1.7) 0.7 (1.0-1.7) Lipase 218 U/L (73-393) Thyroid Stimulating Hormone (TSH) 1.768 uIU/mL (0.358-3.74) Urine Collection Type Unknown Urine Color Yellow Urine Clarity Clear Urine pH 7.0 Urine Specific [place] 1.015 Urine Protein Negative mg/dL (NEG-TRACE) Urine Glucose (UA) Negative mg/dL (NEG) Urine Ketones (Stick) Negative mg/dL (NEG) Urine Blood Negative (NEG) Urine Nitrite Positive (NEG) Urine Bilirubin Negative (NEG) Urine Urobilinogen Dipstick 0.2 mg/dL (0.2 mg/dL) Urine Leukocyte Esterase Large (NEG) Urine RBC Occ /HPF (0-2) Urine WBC 5-10 /HPF (0-4) Urine Squamous Epithelial Cells Few /LPF Urine Renal Epithelial Cells Occ /LPF Urine Bacteria Many /HPF (0-FEW) Test 11/22/17 03:40 White Blood Count 12.4 x10^3/uL (4.0-11.0) Red Blood Count 3.40 x10^6/uL (3.50-5.40) Hemoglobin 10.9 g/dL (12.0-15.5) Hematocrit 32.3 % (36.0-47.0) Mean Corpuscular Volume 95 fL (79-100) Mean Corpuscular Hemoglobin 32 pg (25-35) Mean Corpuscular Hemoglobin Concent 34 g/dL (31-37) Red Cell Distribution Width 13.0 % (11.5-14.5) Platelet Count 413 x10^3/uL (140-400) Neutrophils (%) (Auto) 73 % (31-73) Lymphocytes (%) (Auto) 14 % (24-48) Monocytes (%) (Auto) 10 % (0-9) Eosinophils (%) (Auto) 2 % (0-3) Basophils (%) (Auto) 0 % (0-3) Neutrophils # (Auto) 9.1 x10^3uL (1.8-7.7) Lymphocytes # (Auto) 1.7 x10^3/uL (1.0-4.8) Monocytes # (Auto) 1.3 x10^3/uL (0.0-1.1) Eosinophils # (Auto) 0.3 x10^3/uL (0.0-0.7) Basophils # (Auto) 0.0 x10^3/uL (0.0-0.2) Review of Systems Review of Systems An AP erect portable digital radiograph of the chest was obtained. Comparison study is dated 11/10/2017. The cardiac silhouette is mildly enlarged. Atherosclerotic calcification of the thoracic aorta is seen. A gastrostomy tube overlies the body of the stomach. The thoracic aorta is mildly tortuous. Increasing congestive changes are seen involving both lungs. No area of consolidation is seen. No pneumothorax is noted. The osseous structures are unchanged. Impression: Increasing CHF. Electronically signed by: Frank Neil MD (11/21/2017 11:10 PM) [facility] Assessment and Plan Assessmemt and Plan Problems Medical Problems: (1) Hyponatremia Status: Acute (2) Pneumonia Status: Acute (3) UTI (urinary tract infection) Status: Acute Comment Review of Relevant I have reviewed the following items tom (where applicable) has been applied. Labs Laboratory Tests Test 11/21/17 18:25 11/21/17 18:44 11/21/17 20:10 11/22/17 02:40 White Blood Count 14.4 x10^3/uL (4.0-11.0) Red Blood Count 3.71 x10^6/uL (3.50-5.40) Hemoglobin 11.8 g/dL (12.0-15.5) Hematocrit 34.9 % (36.0-47.0) Mean Corpuscular Volume 94 fL (79-100) Mean Corpuscular Hemoglobin 32 pg (25-35) Mean Corpuscular Hemoglobin Concent 34 g/dL (31-37) Red Cell Distribution Width 13.1 % (11.5-14.5) Platelet Count 466 x10^3/uL (140-400) Neutrophils (%) (Auto) 79 % (31-73) Lymphocytes (%) (Auto) 11 % (24-48) Monocytes (%) (Auto) 9 % (0-9) Eosinophils (%) (Auto) 1 % (0-3) Basophils (%) (Auto) 1 % (0-3) Neutrophils # (Auto) 11.3 x10^3uL (1.8-7.7) Lymphocytes # (Auto) 1.5 x10^3/uL (1.0-4.8) Monocytes # (Auto) 1.3 x10^3/uL (0.0-1.1) Eosinophils # (Auto) 0.1 x10^3/uL (0.0-0.7) Basophils # (Auto) 0.1 x10^3/uL (0.0-0.2) Lactic Acid Level 1.2 mmol/L (0.4-2.0) Sodium Level 130 mmol/L (136-145) 131 mmol/L (136-145) Potassium Level 4.7 mmol/L (3.5-5.1) 4.9 mmol/L (3.5-5.1) Chloride Level 96 mmol/L (98-107) 98 mmol/L (98-107) Carbon Dioxide Level 26 mmol/L (21-32) 23 mmol/L (21-32) Anion Gap 8 (6-14) 10 (6-14) Blood Urea Nitrogen 46 mg/dL (7-20) 41 mg/dL (7-20) Creatinine 1.1 mg/dL (0.6-1.0) 1.1 mg/dL (0.6-1.0) Estimated GFR (Cockcroft-Gault) 46.8 46.8 BUN/Creatinine Ratio 42 (6-20) 37 (6-20) Glucose Level 105 mg/dL (70-99) 110 mg/dL (70-99) Calcium Level 9.4 mg/dL (8.5-10.1) 8.1 mg/dL (8.5-10.1) Total Bilirubin 0.3 mg/dL (0.2-1.0) 0.4 mg/dL (0.2-1.0) Aspartate Amino Transf (AST/SGOT) 57 U/L (15-37) 58 U/L (15-37) Alanine Aminotransferase (ALT/SGPT) 75 U/L (14-59) 68 U/L (14-59) Alkaline Phosphatase 66 U/L (46-116) 63 U/L (46-116) Troponin I Quantitative < 0.017 ng/mL (0.000-0.055) < 0.017 ng/mL (0.000-0.055) JG-Gjr-E-Type Natriuretic Peptide 1190 pg/mL (0-449) Total Protein 7.1 g/dL (6.4-8.2) 5.5 g/dL (6.4-8.2) Albumin 2.6 g/dL (3.4-5.0) 2.2 g/dL (3.4-5.0) Albumin/Globulin Ratio 0.6 (1.0-1.7) 0.7 (1.0-1.7) Lipase 218 U/L (73-393) Thyroid Stimulating Hormone (TSH) 1.768 uIU/mL (0.358-3.74) Urine Collection Type Unknown Urine Color Yellow Urine Clarity Clear Urine pH 7.0 Urine Specific [place] 1.015 Urine Protein Negative mg/dL (NEG-TRACE) Urine Glucose (UA) Negative mg/dL (NEG) Urine Ketones (Stick) Negative mg/dL (NEG) Urine Blood Negative (NEG) Urine Nitrite Positive (NEG) Urine Bilirubin Negative (NEG) Urine Urobilinogen Dipstick 0.2 mg/dL (0.2 mg/dL) Urine Leukocyte Esterase Large (NEG) Urine RBC Occ /HPF (0-2) Urine WBC 5-10 /HPF (0-4) Urine Squamous Epithelial Cells Few /LPF Urine Renal Epithelial Cells Occ /LPF Urine Bacteria Many /HPF (0-FEW) Test 8/9/18 03:40 White Blood Count 12.4 x10^3/uL (4.0-11.0) Red Blood Count 3.40 x10^6/uL (3.50-5.40) Hemoglobin 10.9 g/dL (12.0-15.5) Hematocrit 32.3 % (36.0-47.0) Mean Corpuscular Volume 95 fL (79-100) Mean Corpuscular Hemoglobin 32 pg (25-35) Mean Corpuscular Hemoglobin Concent 34 g/dL (31-37) Red Cell Distribution Width 13.0 % (11.5-14.5) Platelet Count 413 x10^3/uL (140-400) Neutrophils (%) (Auto) 73 % (31-73) Lymphocytes (%) (Auto) 14 % (24-48) Monocytes (%) (Auto) 10 % (0-9) Eosinophils (%) (Auto) 2 % (0-3) Basophils (%) (Auto) 0 % (0-3) Neutrophils # (Auto) 9.1 x10^3uL (1.8-7.7) Lymphocytes # (Auto) 1.7 x10^3/uL (1.0-4.8) Monocytes # (Auto) 1.3 x10^3/uL (0.0-1.1) Eosinophils # (Auto) 0.3 x10^3/uL (0.0-0.7) Basophils # (Auto) 0.0 x10^3/uL (0.0-0.2) Laboratory Tests Test 11/21/17 18:25 11/21/17 18:44 11/21/17 20:10 11/22/17 02:40 White Blood Count 14.4 x10^3/uL (4.0-11.0) Red Blood Count 3.71 x10^6/uL (3.50-5.40) Hemoglobin 11.8 g/dL (12.0-15.5) Hematocrit 34.9 % (36.0-47.0) Mean Corpuscular Volume 94 fL (79-100) Mean Corpuscular Hemoglobin 32 pg (25-35) Mean Corpuscular Hemoglobin Concent 34 g/dL (31-37) Red Cell Distribution Width 13.1 % (11.5-14.5) Platelet Count 466 x10^3/uL (140-400) Neutrophils (%) (Auto) 79 % (31-73) Lymphocytes (%) (Auto) 11 % (24-48) Monocytes (%) (Auto) 9 % (0-9) Eosinophils (%) (Auto) 1 % (0-3) Basophils (%) (Auto) 1 % (0-3) Neutrophils # (Auto) 11.3 x10^3uL (1.8-7.7) Lymphocytes # (Auto) 1.5 x10^3/uL (1.0-4.8) Monocytes # (Auto) 1.3 x10^3/uL (0.0-1.1) Eosinophils # (Auto) 0.1 x10^3/uL (0.0-0.7) Basophils # (Auto) 0.1 x10^3/uL (0.0-0.2) Lactic Acid Level 1.2 mmol/L (0.4-2.0) Sodium Level 130 mmol/L (136-145) 131 mmol/L (136-145) Potassium Level 4.7 mmol/L (3.5-5.1) 4.9 mmol/L (3.5-5.1) Chloride Level 96 mmol/L (98-107) 98 mmol/L (98-107) Carbon Dioxide Level 26 mmol/L (21-32) 23 mmol/L (21-32) Anion Gap 8 (6-14) 10 (6-14) Blood Urea Nitrogen 46 mg/dL (7-20) 41 mg/dL (7-20) Creatinine 1.1 mg/dL (0.6-1.0) 1.1 mg/dL (0.6-1.0) Estimated GFR (Cockcroft-Gault) 46.8 46.8 BUN/Creatinine Ratio 42 (6-20) 37 (6-20) Glucose Level 105 mg/dL (70-99) 110 mg/dL (70-99) Calcium Level 9.4 mg/dL (8.5-10.1) 8.1 mg/dL (8.5-10.1) Total Bilirubin 0.3 mg/dL (0.2-1.0) 0.4 mg/dL (0.2-1.0) Aspartate Amino Transf (AST/SGOT) 57 U/L (15-37) 58 U/L (15-37) Alanine Aminotransferase (ALT/SGPT) 75 U/L (14-59) 68 U/L (14-59) Alkaline Phosphatase 66 U/L (46-116) 63 U/L (46-116) Troponin I Quantitative < 0.017 ng/mL (0.000-0.055) < 0.017 ng/mL (0.000-0.055) CN-Llp-A-Type Natriuretic Peptide 1190 pg/mL (0-449) Total Protein 7.1 g/dL (6.4-8.2) 5.5 g/dL (6.4-8.2) Albumin 2.6 g/dL (3.4-5.0) 2.2 g/dL (3.4-5.0) Albumin/Globulin Ratio 0.6 (1.0-1.7) 0.7 (1.0-1.7) Lipase 218 U/L (73-393) Thyroid Stimulating Hormone (TSH) 1.768 uIU/mL (0.358-3.74) Urine Collection Type Unknown Urine Color Yellow Urine Clarity Clear Urine pH 7.0 Urine Specific [place] 1.015 Urine Protein Negative mg/dL (NEG-TRACE) Urine Glucose (UA) Negative mg/dL (NEG) Urine Ketones (Stick) Negative mg/dL (NEG) Urine Blood Negative (NEG) Urine Nitrite Positive (NEG) Urine Bilirubin Negative (NEG) Urine Urobilinogen Dipstick 0.2 mg/dL (0.2 mg/dL) Urine Leukocyte Esterase Large (NEG) Urine RBC Occ /HPF (0-2) Urine WBC 5-10 /HPF (0-4) Urine Squamous Epithelial Cells Few /LPF Urine Renal Epithelial Cells Occ /LPF Urine Bacteria Many /HPF (0-FEW) Test 11/22/17 03:40 White Blood Count 12.4 x10^3/uL (4.0-11.0) Red Blood Count 3.40 x10^6/uL (3.50-5.40) Hemoglobin 10.9 g/dL (12.0-15.5) Hematocrit 32.3 % (36.0-47.0) Mean Corpuscular Volume 95 fL (79-100) Mean Corpuscular Hemoglobin 32 pg (25-35) Mean Corpuscular Hemoglobin Concent 34 g/dL (31-37) Red Cell Distribution Width 13.0 % (11.5-14.5) Platelet Count 413 x10^3/uL (140-400) Neutrophils (%) (Auto) 73 % (31-73) Lymphocytes (%) (Auto) 14 % (24-48) Monocytes (%) (Auto) 10 % (0-9) Eosinophils (%) (Auto) 2 % (0-3) Basophils (%) (Auto) 0 % (0-3) Neutrophils # (Auto) 9.1 x10^3uL (1.8-7.7) Lymphocytes # (Auto) 1.7 x10^3/uL (1.0-4.8) Monocytes # (Auto) 1.3 x10^3/uL (0.0-1.1) Eosinophils # (Auto) 0.3 x10^3/uL (0.0-0.7) Basophils # (Auto) 0.0 x10^3/uL (0.0-0.2) Medications Current Medications Vancomycin HCl 250 ml @ 250 mls/hr 1X ONCE IV Last administered on 11/21/17at 23:26; Start 11/21/17 at 20:00; Stop 11/21/17 at 20:59; Status DC Piperacillin Sod/ Tazobactam Sod 4.5 gm/Sodium Chloride 100 ml @ 200 mls/hr 1X ONCE IV ; Start 11/21/17 at 20:00; Stop 11/21/17 at 20:29; Status Cancel Piperacillin Sod/ Tazobactam Sod 3.375 gm/Sodium Chloride 50 ml @ 100 mls/hr ONCE ONCE IV Last administered on 11/21/17at 20:35; Start 11/21/17 at 20:00; Stop 11/21/17 at 20:29; Status DC Ondansetron HCl (Zofran) 4 mg PRN Q8HRS PRN IV NAUSEA/VOMITING; Start 11/21/17 at 20:45; Stop 11/22/17 at 20:44 Fentanyl Citrate (Fentanyl 2ml Vial) 50 mcg PRN Q1HR PRN IV PAIN; Start at 20:45; Stop 11/22/17 at 20:44 Acetaminophen (Tylenol) 650 mg PRN Q4HRS PRN PO FEVER; Start 11/21/17 at 20:45; Stop 11/22/17 at 20:44 Potassium Chloride/Dextrose/ Sod Cl 1,000 ml @ 100 mls/hr Q10H IV Last administered on 11/22/17at 08:39; Start 11/21/17 at 23:00 Acetaminophen (Tylenol) 650 mg PRN Q6HRS PRN PO FEVER; Start 11/22/17 at 07:15 Acetaminophen (Tylenol) 650 mg PRN Q6HRS PRN PO PAIN; Start 11/22/17 at 07:15; Status UNV Aspirin (Anum Aspirin) 325 mg DAILY PO Last administered on 11/22/17at 08:25; Start 11/22/17 at 09:00 Cyclosporine (Restasis) 1 drop BID OU Last administered on 11/22/17at 08:25; Start 11/22/17 at 09:00 Docusate Sodium (Colace Solution) 50 mg DAILY PO Last administered on 11/22/17at 08:28; Start 11/22/17 at 09:00 Al Hydroxide/Mg Hydroxide (Mylanta Plus Xs) 30 ml PRN Q6HRS PRN PO HEARTBURN / GAS; Start 11/22/17 at 07:15 Magnesium Hydroxide (Milk Of Magnesia) 400 mg PRN BID PRN PO CONSTIPATION; Start 11/22/17 at 07:15 Trazodone HCl (Desyrel) 50 mg QHS PO ; Start 11/22/17 at 21:00 Fluvoxamine Maleate (Luvox) 100 mg DAILY PO ; Start 11/22/17 at 09:00 Levothyroxine Sodium (Synthroid) 25 mcg DAILY07 PO Last administered on at 08:25; Start 11/22/17 at 07:30 Loperamide HCl (Imodium) 2 mg PRN Q15MIN PRN PO DIARRHEA; Start 11/22/17 at 07: 15; Stop 11/22/17 at 07:15; Status DC Mirtazapine (Remeron) 15 mg QHS PO ; Start 11/22/17 at 21:00 Multivitamins (Thera M Plus) 1 tab DAILY PO Last administered on 11/22/17at 08:24 ; Start 11/22/17 at 09:00 Non-Formulary Medication (Nutrit Supp/ Inulin/Fos/Fiber (Fibersource Hn Liquid) ) 1,500 ml Q8HRS PO ; Start 11/22/17 at 14:00; Status UNV Ondansetron HCl (Zofran Odt) 4 mg Q6HRS PO Last administered on 11/22/17at 08:25 ; Start 11/22/17 at 07:30 Scopolamine (Transderm-Scop) 1 patch Q3DAYS TD Last administered on 11/22/17at 08 :25; Start 11/22/17 at 09:00 Trifluoperazine HCl (Stelazine) 5 mg DAILY PO ; Start 11/22/17 at 09:00 Piperacillin Sod/ Tazobactam Sod (Zosyn Per Pharmacy) 1 each PRN DAILY PRN MC SEE COMMENTS; Start 11/22/17 at 07:15 Loperamide HCl (Imodium) 4 mg PRN Q1HR PRN PO DIARRHEA; Start 11/22/17 at 07:15 Piperacillin Sod/ Tazobactam Sod 2.25 gm/Sodium Chloride 50 ml @ 100 mls/hr Q6HRS IV Last administered on 11/22/17at 08:24; Start 11/22/17 at 07:30 Active Scripts Active Reported Transderm-Scop (Scopolamine) 1 Each Patch.td72 1 Patch TP Q3DAYS Levothyroxine Sodium 25 Mcg Tablet 1 Tab PO DAILY Trifluoperazine Hcl 5 Mg Tablet 5 Mg PO DAILY Loperamide (Loperamide Hcl) 2 Mg Tablet 4 Mg PO PRN Q1HR PRN Remeron (Mirtazapine) 15 Mg Tablet 1 Tab PO DAILY Fluvoxamine Maleate 100 Mg Tablet 1 Tab PO DAILY Trazodone Hcl 50 Mg Tablet 1 Tab PO QHS Fibersource Hn Liquid (Nutrit Supp/Inulin/Fos/Fiber) 1,500 Ml Liquid 1,500 Ml PO Q8HRS Maalox Maximum Strength Susp (Mag Hydrox/Al Hydrox/Simeth) 355 Ml Oral.susp 355 Ml PO PRN Q6HRS PRN Maalox Maximum Strength Susp (Mag Hydrox/Al Hydrox/Simeth) 355 Ml Oral.susp 355 Ml PO Milk Of Magnesia (Magnesium Hydroxide) 400 Mg/5 Ml Oral.susp 400 Mg PO PRN BID PRN Tylenol (Acetaminophen) 325 Mg Tablet 2 Tab PO PRN Q6HRS PRN Tylenol (Acetaminophen) 325 Mg Tablet 2 Tab PO PRN Q6HRS PRN Restasis (Cyclosporine) 1 Each Droperette 1 Drop EACHEYE BID Multivitamins (Multivitamin) 1 Each Tablet 1 Tab PO DAILY Miconazole Nitrate 45 Gm Cream.appl 45 Gm VG Women's Laxative (Bisacodyl) 5 Mg Tablet 5 Mg PO Aspirin 325 Mg Tablet 1 Tab PO DAILY Calcium 600 + Vit D 400 Softgl (Calcium Carbonate/Vitamin D3) 1 Each Capsule 1 Each PO Docusate Sodium 50 Mg/5 Ml Liquid 50 Mg PO Zofran (Ondansetron Hcl) 4 Mg Tablet 1 Tab PO Q6HRS Vitals/I & O Vital Sign - Last 24 Hours 11/21/17 11/21/17 11/22/17 11/22/17 17:55 23:00 00:45 03:00 Temp 98.1 99.2 99.0 98.1 99.2 99.0 Pulse 87 90 72 Resp 22 18 18 B/P (MAP) 156/93 (114) 171/84 (113) 126/75 (92) Pulse Ox 95 92 96 O2 Delivery Room Air Room Air Room Air Room Air 11/22/17 11/22/17 07:00 08:00 Temp 98.1 98.1 Pulse 69 Resp 18 B/P (MAP) 97/56 (70) Pulse Ox 95 O2 Delivery Room Air Room Air Intake and Output 11/21/17 11/21/17 11/22/17 15:00 23:00 07:00 Intake Total 0 ml Output Total 550 ml Balance -550 ml Nutrition Consultation Dietary Evaluation: Recommendations by RD: Increase Calorie Intake, Protein supplementation Comments: Pt is NPO initated nutrition via PEG Expected Outcomes/Goals: tolerate TF at goal wt maintainance Interpretation of weight loss: >1-2% in 1 week Malnutrition Findings: Body Fat Depletion (Non Severe: Mild Depletion Weight Status: Underweight BLAIR RENO MD Nov 22, 2017 11:03
--- NOTE | 2017-11-22 11:21 | PDOC ---
Infectious Disease Note Vital Sign Vital Signs Vital Signs Date Time Temp Pulse Resp B/P (MAP) Pulse Ox O2 Delivery O2 Flow Rate FiO2 11/22/17 08:00 Room Air 11/22/17 07:00 98.1 69 18 97/56 (70) 95 98.1 Labs Lab Laboratory Tests Test 11/21/17 18:25 11/21/17 18:44 11/21/17 20:10 11/22/17 02:40 White Blood Count 14.4 x10^3/uL (4.0-11.0) Red Blood Count 3.71 x10^6/uL (3.50-5.40) Hemoglobin 11.8 g/dL (12.0-15.5) Hematocrit 34.9 % (36.0-47.0) Mean Corpuscular Volume 94 fL (79-100) Mean Corpuscular Hemoglobin 32 pg (25-35) Mean Corpuscular Hemoglobin Concent 34 g/dL (31-37) Red Cell Distribution Width 13.1 % (11.5-14.5) Platelet Count 466 x10^3/uL (140-400) Neutrophils (%) (Auto) 79 % (31-73) Lymphocytes (%) (Auto) 11 % (24-48) Monocytes (%) (Auto) 9 % (0-9) Eosinophils (%) (Auto) 1 % (0-3) Basophils (%) (Auto) 1 % (0-3) Neutrophils # (Auto) 11.3 x10^3uL (1.8-7.7) Lymphocytes # (Auto) 1.5 x10^3/uL (1.0-4.8) Monocytes # (Auto) 1.3 x10^3/uL (0.0-1.1) Eosinophils # (Auto) 0.1 x10^3/uL (0.0-0.7) Basophils # (Auto) 0.1 x10^3/uL (0.0-0.2) Lactic Acid Level 1.2 mmol/L (0.4-2.0) Sodium Level 130 mmol/L (136-145) 131 mmol/L (136-145) Potassium Level 4.7 mmol/L (3.5-5.1) 4.9 mmol/L (3.5-5.1) Chloride Level 96 mmol/L (98-107) 98 mmol/L (98-107) Carbon Dioxide Level 26 mmol/L (21-32) 23 mmol/L (21-32) Anion Gap 8 (6-14) 10 (6-14) Blood Urea Nitrogen 46 mg/dL (7-20) 41 mg/dL (7-20) Creatinine 1.1 mg/dL (0.6-1.0) 1.1 mg/dL (0.6-1.0) Estimated GFR (Cockcroft-Gault) 46.8 46.8 BUN/Creatinine Ratio 42 (6-20) 37 (6-20) Glucose Level 105 mg/dL (70-99) 110 mg/dL (70-99) Calcium Level 9.4 mg/dL (8.5-10.1) 8.1 mg/dL (8.5-10.1) Total Bilirubin 0.3 mg/dL (0.2-1.0) 0.4 mg/dL (0.2-1.0) Aspartate Amino Transf (AST/SGOT) 57 U/L (15-37) 58 U/L (15-37) Alanine Aminotransferase (ALT/SGPT) 75 U/L (14-59) 68 U/L (14-59) Alkaline Phosphatase 66 U/L (46-116) 63 U/L (46-116) Troponin I Quantitative < 0.017 ng/mL (0.000-0.055) < 0.017 ng/mL (0.000-0.055) BA-Lef-H-Type Natriuretic Peptide 1190 pg/mL (0-449) Total Protein 7.1 g/dL (6.4-8.2) 5.5 g/dL (6.4-8.2) Albumin 2.6 g/dL (3.4-5.0) 2.2 g/dL (3.4-5.0) Albumin/Globulin Ratio 0.6 (1.0-1.7) 0.7 (1.0-1.7) Lipase 218 U/L (73-393) Thyroid Stimulating Hormone (TSH) 1.768 uIU/mL (0.358-3.74) Urine Collection Type Unknown Urine Color Yellow Urine Clarity Clear Urine pH 7.0 Urine Specific [place] 1.015 Urine Protein Negative mg/dL (NEG-TRACE) Urine Glucose (UA) Negative mg/dL (NEG) Urine Ketones (Stick) Negative mg/dL (NEG) Urine Blood Negative (NEG) Urine Nitrite Positive (NEG) Urine Bilirubin Negative (NEG) Urine Urobilinogen Dipstick 0.2 mg/dL (0.2 mg/dL) Urine Leukocyte Esterase Large (NEG) Urine RBC Occ /HPF (0-2) Urine WBC 5-10 /HPF (0-4) Urine Squamous Epithelial Cells Few /LPF Urine Renal Epithelial Cells Occ /LPF Urine Bacteria Many /HPF (0-FEW) Test 11/22/17 03:40 White Blood Count 12.4 x10^3/uL (4.0-11.0) Red Blood Count 3.40 x10^6/uL (3.50-5.40) Hemoglobin 10.9 g/dL (12.0-15.5) Hematocrit 32.3 % (36.0-47.0) Mean Corpuscular Volume 95 fL (79-100) Mean Corpuscular Hemoglobin 32 pg (25-35) Mean Corpuscular Hemoglobin Concent 34 g/dL (31-37) Red Cell Distribution Width 13.0 % (11.5-14.5) Platelet Count 413 x10^3/uL (140-400) Neutrophils (%) (Auto) 73 % (31-73) Lymphocytes (%) (Auto) 14 % (24-48) Monocytes (%) (Auto) 10 % (0-9) Eosinophils (%) (Auto) 2 % (0-3) Basophils (%) (Auto) 0 % (0-3) Neutrophils # (Auto) 9.1 x10^3uL (1.8-7.7) Lymphocytes # (Auto) 1.7 x10^3/uL (1.0-4.8) Monocytes # (Auto) 1.3 x10^3/uL (0.0-1.1) Eosinophils # (Auto) 0.3 x10^3/uL (0.0-0.7) Basophils # (Auto) 0.0 x10^3/uL (0.0-0.2) Objective Assessment UTI- POA 11/21 Leukocytosis Bactrim allergy Multiple superficial wounds S/p Large late acute left MCA infarct MRI 11/11 ? Pneumonia Plan Plan of Care Cont Zosyn Restart Vanc F/u labs and cults F/u CT chest [place] records reviewed D/w Dr Ibarra Thank you # [id number] CATALINA CHARLSE MD Nov 22, 2017 11:21
--- NOTE | 2017-11-22 11:40 | CONS ---
DATE OF CONSULTATION: PULMONARY CONSULTATION ATTENDING PHYSICIAN: Dr. Gonzales. REASON FOR CONSULTATION: Pneumonia. HISTORY OF PRESENT ILLNESS: The patient is an 87-year-old female who probably has baseline dementia, history of CVA. She was brought in to the hospital with suspected sepsis. The patient does not communicate and I am unable to obtain much history from the patient. Review of the record reveals that she had fever and was tachypneic and tachycardic; however, she is in no obvious respiratory distress at present. I have reviewed her chest x-ray and shows slightly prominent interstitial markings suggesting possible CHF. However, pneumonia cannot be ruled out. Her previous echo had an EF of 60%. PAST MEDICAL HISTORY: History of CVA, hyperlipidemia, history of cancer, bipolar disorder, depression, rheumatoid arthritis. PAST SURGICAL HISTORY: Total hip replacement. ALLERGIES: SULFA. MEDICATIONS: Reviewed as listed in the MRAD including broad spectrum antibiotic. SOCIAL HISTORY: Lives at the senior care. PHYSICAL EXAMINATION: VITAL SIGNS: Reviewed. T-max of 99.2, pulse ox 94% on room air. NECK: Supple. LUNGS: Diminished breath sounds. CARDIOVASCULAR: Regular rate. ABDOMEN: Soft. EXTREMITIES: With no pitting edema. LABORATORY DATA: Reviewed. White cell count 12.4, hemoglobin 10.9, platelets are 413. BUN 41 and creatinine 1.1. IMPRESSION: 1. Abnormal chest x-ray suggesting prominent interstitial markings; however, clinically she appears to be dry with azotemia. Clinically, less likely congestive heart failure, but we will do a noncontrast CT chest to rule out pneumonia. 2. Low grade fever could be related to urinary tract infection. 3. Acute kidney injury. Related to dehydration. 4. Hyponatremia. 5. Severe protein-calorie malnutrition. RECOMMENDATIONS: 1. Continue antibiotics per Infectious Disease. 2. Noncontrast CT chest. 3. If there is no CHF, then we will consider hydration. 4. Follow renal function. 5. Follow sodium. 6. Discussed with and discussed with Dr. Balderas. LORENA WALTERS MD DR: JERSON/jeremie JOB#: [id number] / [id number]
--- NOTE | 2017-11-22 12:43 | RAD ---
PQRS Compliance Statement: One or more of the following individualized dose reduction techniques were utilized for this examination: 1. Automated exposure control 2. Adjustment of the mA and/or kV according to patient size 3. Use of iterative reconstruction technique CT CHEST WO CONTRAST Clinical Indication: CHF VS PNA . History of left breast cancer. Urinary tract infraction, hyponatremia. Comparison: None. TECHNIQUE: Helical CT imaging of the chest is performed without IV contrast. Findings: There are a few upper limits of normal in size mediastinal lymph nodes. Limited evaluation of the k[place] without IV contrast. Atherosclerotic thoracic aorta. Great vessels normal caliber. Three-vessel coronary artery disease. Small hiatal hernia. Mild cardiomegaly. No pericardial effusion. No pleural effusion. Central airways are patent. There is respiratory motion artifact in the lungs limiting evaluation. There are patchy consolidations in the bilateral basilar lower lobes. There is bilateral basilar peribronchial thickening. There is dependent atelectasis in the lungs. There is a 7 cm right hepatic lobe cyst. Gastrostomy tube in appropriate position. There is a 5.5 cm left renal cyst, incompletely imaged. There is old fracture of the medial right clavicle. Old compression deformity at the superior endplate of T1. There is severe old compression fracture of the T11 vertebral body. There is mild retropulsion with mild central canal stenosis. IMPRESSION: 1. In the bilateral basilar lower lobes there is mild peribronchial thickening and patchy consolidations suggestive of bronchitis and early bronchopneumonia versus atelectasis. 2. Mild cardiomegaly. No pleural effusion or interstitial edema. 3. Small hiatal hernia. Electronically signed by: Jayesh Love MD (11/22/2017 12:40 PM) [id number]
[2017-11-22] MEDS: FUROSEMIDE 20 MG/2 ML VIAL. IVP SCH (13:00)
[2017-11-22] MEDS: TRIFLUOPERAZINE 5 MG PO SCH (13:00)
[2017-11-22] MEDS ORDERED: FIBER PO SCH (14:00)
[2017-11-22] MEDS ORDERED: [UNRECOGNIZED DRUG - OTHER] PO SCH (14:00)
[2017-11-22] MEDS ORDERED: FOS PO SCH (14:00)
[2017-11-22] MEDS ORDERED: INULIN PO SCH (14:00)
[2017-11-22 15:00] VITALS: BP 88/45
[2017-11-22 19:00] VITALS: BP 123/64
[2017-11-22] MEDS: traZODone 50 MG TABLET. PO SCH (21:13)
[2017-11-22] MEDS: MIRTAZAPINE 15 MG TABLET PO SCH (21:13)
[2017-11-22 22:31] VITALS: BP 93/47
[2017-11-23] MEDS: ONDANSETRON ODT 4 MG TAB.RAPDIS. PO SCH ×5 (00:20→23:45)
--- NOTE | 2017-11-23 00:22 | CONS ---
DATE OF CONSULTATION: 11/22/2017 INFECTIOUS DISEASE CONSULTATION LOCATION: The patient's room is 556. REQUESTING PHYSICIAN: Dr. Gonzales. REASON FOR CONSULTATION: UTI. HISTORY OF PRESENT ILLNESS: The patient is an 87-year-old female recently who suffered a large acute left MCA infarct as demonstrated on MRI on 11/11/2017. She is a resident at a local nursing facility. She was brought to [facility] on 11/21/2017 secondary to complaints of shortness of air. At our facility on 11/21/2017, she was noted to have a sodium of 128, creatinine of 1, white count was 12.4, and a chest x-ray was obtained that showed some atelectasis versus pneumonia in the left medial lung base and some mild cardiomegaly. Reviewing her medication list, she was not taking any antimicrobials except for some topical miconazole cream. On arrival here, her white count was 14.4. Urinalysis is concerning for potential urinary tract infection. Chest x-ray had some questionable increasing congestive heart failure. Since then, she has received a dose of vancomycin and placed on Zosyn. Currently, she is sitting in a chair. She awakened, but is essentially nonverbal. PAST MEDICAL HISTORY: Positive for hyperlipidemia, history of CVA, cancer, bipolar, depression, rheumatoid arthritis, dysphagia. PAST SURGICAL HISTORY: Positive for left mastectomy. She has had a PEG tube placement and total hip replacement. REVIEW OF SYSTEMS: Unobtainable. ALLERGIES: LISTED BACTRIM. SOCIAL HISTORY: She is a halfway resident now. No tobacco or alcohol. FAMILY HISTORY: Positive for coronary artery disease. CURRENT MEDICATIONS: Include Zosyn, vancomycin x 1 was given, aspirin, cyclosporine drops, Colace, fentanyl, Synthroid, Remeron, trazodone, Stelazine. Other meds are available and have been reviewed in the chart. PHYSICAL EXAMINATION: VITAL SIGNS: He has been afebrile, currently temperature is 98.1 axillary, pulse of 69, respirations 18, blood pressure 97/56, satting 95% on room air. CONSTITUTIONAL: She is sitting in a chair. She is in no acute distress. She opens her eyes. She would not open her mouth. NECK: Without JVD. LUNGS: Decreased in the bases. HEART: S1, S2. ABDOMEN: Soft. PEG tube in place. No guarding or rebound. EXTREMITIES: Without clubbing or cyanosis. Trace edema. SKIN: Warm to touch. She has multiple ecchymoses and superficial wound, but no gross rash. NEUROLOGIC: She is minimally responsive and aphasic apart from opening her eyes. LABORATORY DATA: Today, white count 12.4, hemoglobin 10.9, platelets of 413, neutrophils 73, lymphs of 14. Creatinine of 1.1, glucose of 110, AST 58, ALT 68. TSH was normal. Urinalysis reviewed in history of present illness. Previous MRSA screen is negative. RADIOLOGY: Reviewed in history of present illness. IMPRESSION: 1. Urinary tract infection present on admission, no previous positive culture results. 2. Leukocytosis. 3. Bactrim allergy. 4. Multiple superficial wounds. 5. 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 6. Questionable pneumonia. RECOMMENDATIONS: Continue Zosyn. Restart vancomycin. Follow up labs and cultures, follow up CT chest. Discussed with Dr. Ibarra. Thank you for allowing me to see and participate in this patient's care. Should you have further questions or concerns, please do not hesitate to contact me. CATALINA CHARLES MD DR: GHASSAN/jeremie JOB#: [id number] / [id number]
[2017-11-23 02:46] VITALS: BP 104/59
[2017-11-23] MEDS: POTASSIUM CL 20MEQ D5-0.45NACL 1,000 ML IV SCH ×3 (05:00→23:46)
[2017-11-23] MEDS: LEVOTHYROXINE 25 MCG TABLET. PO SCH (05:39)
[2017-11-23] MEDS: PIPERACILLIN/TAZOBACTAM 2.25 GM in IV NORMAL SALINE 50ML 50 ML IV SCH ×4 (05:40→23:45)
[2017-11-23 07:00] VITALS: BP 143/67
[2017-11-23 07:09] LABS: BASO # 0.1 x10^3/uL (0.0-0.2); BASO % 0 % (0-3); EOS # 0.2 x10^3/uL (0.0-0.7); EOS % 2 % (0-3); HEMATOCRIT 30.5 % (36.0-47.0); HEMOGLOBIN 10.4 g/dL (12.0-15.5); LYMPH # 1.5 x10^3/uL (1.0-4.8); LYMPH % 12 % (24-48); MEAN CORPUSCULAR HEMOGLOBIN 32 pg (25-35); MEAN CORPUSCULAR HGB CONC 34 g/dL (31-37); MEAN CORPUSCULAR VOLUME 95 fL (79-100); MONO % 8 % (0-9); NEUT # 9.4 x10^3uL (1.8-7.7); NEUT % 77 % (31-73); PLATELET COUNT 391 x10^3/uL (140-400); RED BLOOD COUNT 3.23 x10^6/uL (3.50-5.40); RED CELL DISTRIBUTION WIDTH 13.1 % (11.5-14.5); WHITE BLOOD COUNT 12.2 x10^3/uL (4.0-11.0)
[2017-11-23 07:19] LABS: CALCIUM 8.4 mg/dL (8.5-10.1); CREATININE 1.4 mg/dL (0.6-1.0); GFR 35.4; POTASSIUM 4.2 mmol/L (3.5-5.1)
[2017-11-23] MEDS ORDERED: ONDANSETRON PF 4 MG/2 ML VIAL. IV PRN (08:30)
[2017-11-23] MEDS: FUROSEMIDE 20 MG/2 ML VIAL. IVP SCH (08:38)
[2017-11-23] MEDS: TRIFLUOPERAZINE 5 MG PO SCH (08:38)
[2017-11-23] MEDS: ASPIRIN 325 MG TABLET PO SCH (08:38)
[2017-11-23] MEDS: DOCUSATE 100 MG/10 ML SOLUTION. PO SCH (08:38)
[2017-11-23] MEDS: cycloSPORINE 0.05% OPTH 1 DROP DROPERETTE OU SCH ×2 (08:38→22:17)
[2017-11-23] MEDS: MULTIVITAMIN with MINERAL TABLET. PO SCH (08:38)
--- NOTE | 2017-11-23 10:32 | PDOC ---
PROGRESS NOTES Chief Complaint Chief Complaint 1. Urinary tract infection present on admission, no previous positive culture results. 2. Leukocytosis. 3. Bactrim allergy. 4. Multiple superficial wounds. 5. 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 6. Questionable pneumonia. 7. Hyponatremia 8. 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 DNR History of Present Illness History of Present Illness ASleep, with mittens, I did not awaken Whole chart reviewed Large MCA in 11/11/17 that left her aphasic and hemiparesis she presented with fever, and tachycardia and tachypnea. ID on board PLAN: CPM DNR labs Vitals Vitals Vital Signs Date Time Temp Pulse Resp B/P (MAP) Pulse Ox O2 Delivery O2 Flow Rate FiO2 11/23/17 07:00 97.7 73 18 143/67 (92) 93 Room Air 97.7 Physical Exam General: Cooperative, mild distress Heart: Regular rate, Gallops Lungs: Crackles Abdomen: Soft, No tenderness Extremities: No clubbing, No cyanosis, No edema Labs LABS Laboratory Tests Test 11/23/17 06:50 White Blood Count 12.2 x10^3/uL (4.0-11.0) Red Blood Count 3.23 x10^6/uL (3.50-5.40) Hemoglobin 10.4 g/dL (12.0-15.5) Hematocrit 30.5 % (36.0-47.0) Mean Corpuscular Volume 95 fL (79-100) Mean Corpuscular Hemoglobin 32 pg (25-35) Mean Corpuscular Hemoglobin Concent 34 g/dL (31-37) Red Cell Distribution Width 13.1 % (11.5-14.5) Platelet Count 391 x10^3/uL (140-400) Neutrophils (%) (Auto) 77 % (31-73) Lymphocytes (%) (Auto) 12 % (24-48) Monocytes (%) (Auto) 8 % (0-9) Eosinophils (%) (Auto) 2 % (0-3) Basophils (%) (Auto) 0 % (0-3) Neutrophils # (Auto) 9.4 x10^3uL (1.8-7.7) Lymphocytes # (Auto) 1.5 x10^3/uL (1.0-4.8) Monocytes # (Auto) 1.0 x10^3/uL (0.0-1.1) Eosinophils # (Auto) 0.2 x10^3/uL (0.0-0.7) Basophils # (Auto) 0.1 x10^3/uL (0.0-0.2) Sodium Level 135 mmol/L (136-145) Potassium Level 4.2 mmol/L (3.5-5.1) Chloride Level 100 mmol/L (98-107) Carbon Dioxide Level 27 mmol/L (21-32) Anion Gap 8 (6-14) Blood Urea Nitrogen 39 mg/dL (7-20) Creatinine 1.4 mg/dL (0.6-1.0) Estimated GFR (Cockcroft-Gault) 35.4 Glucose Level 106 mg/dL (70-99) Calcium Level 8.4 mg/dL (8.5-10.1) Review of Systems Review of Systems Sleep I did not awaken Assessment and Plan Assessmemt and Plan Problems Medical Problems: (1) Hyponatremia Status: Acute (2) Pneumonia Status: Acute (3) UTI (urinary tract infection) Status: Acute Comment Review of Relevant I have reviewed the following items tom (where applicable) has been applied. Labs Laboratory Tests Test 11/21/17 18:25 11/21/17 18:44 11/21/17 20:10 11/22/17 01:00 White Blood Count 14.4 x10^3/uL (4.0-11.0) Red Blood Count 3.71 x10^6/uL (3.50-5.40) Hemoglobin 11.8 g/dL (12.0-15.5) Hematocrit 34.9 % (36.0-47.0) Mean Corpuscular Volume 94 fL (79-100) Mean Corpuscular Hemoglobin 32 pg (25-35) Mean Corpuscular Hemoglobin Concent 34 g/dL (31-37) Red Cell Distribution Width 13.1 % (11.5-14.5) Platelet Count 466 x10^3/uL (140-400) Neutrophils (%) (Auto) 79 % (31-73) Lymphocytes (%) (Auto) 11 % (24-48) Monocytes (%) (Auto) 9 % (0-9) Eosinophils (%) (Auto) 1 % (0-3) Basophils (%) (Auto) 1 % (0-3) Neutrophils # (Auto) 11.3 x10^3uL (1.8-7.7) Lymphocytes # (Auto) 1.5 x10^3/uL (1.0-4.8) Monocytes # (Auto) 1.3 x10^3/uL (0.0-1.1) Eosinophils # (Auto) 0.1 x10^3/uL (0.0-0.7) Basophils # (Auto) 0.1 x10^3/uL (0.0-0.2) Lactic Acid Level 1.2 mmol/L (0.4-2.0) Sodium Level 130 mmol/L (136-145) Potassium Level 4.7 mmol/L (3.5-5.1) Chloride Level 96 mmol/L (98-107) Carbon Dioxide Level 26 mmol/L (21-32) Anion Gap 8 (6-14) Blood Urea Nitrogen 46 mg/dL (7-20) Creatinine 1.1 mg/dL (0.6-1.0) Estimated GFR (Cockcroft-Gault) 46.8 BUN/Creatinine Ratio 42 (6-20) Glucose Level 105 mg/dL (70-99) Calcium Level 9.4 mg/dL (8.5-10.1) Total Bilirubin 0.3 mg/dL (0.2-1.0) Aspartate Amino Transf (AST/SGOT) 57 U/L (15-37) Alanine Aminotransferase (ALT/SGPT) 75 U/L (14-59) Alkaline Phosphatase 66 U/L (46-116) Troponin I Quantitative < 0.017 ng/mL (0.000-0.055) HI-Lng-A-Type Natriuretic Peptide 1190 pg/mL (0-449) Total Protein 7.1 g/dL (6.4-8.2) Albumin 2.6 g/dL (3.4-5.0) Albumin/Globulin Ratio 0.6 (1.0-1.7) Lipase 218 U/L (73-393) Thyroid Stimulating Hormone (TSH) 1.768 uIU/mL (0.358-3.74) Urine Collection Type Unknown Urine Color Yellow Urine Clarity Clear Urine pH 7.0 Urine Specific [place] 1.015 Urine Protein Negative mg/dL (NEG-TRACE) Urine Glucose (UA) Negative mg/dL (NEG) Urine Ketones (Stick) Negative mg/dL (NEG) Urine Blood Negative (NEG) Urine Nitrite Positive (NEG) Urine Bilirubin Negative (NEG) Urine Urobilinogen Dipstick 0.2 mg/dL (0.2 mg/dL) Urine Leukocyte Esterase Large (NEG) Urine RBC Occ /HPF (0-2) Urine WBC 5-10 /HPF (0-4) Urine Squamous Epithelial Cells Few /LPF Urine Renal Epithelial Cells Occ /LPF Urine Bacteria Many /HPF (0-FEW) Nasal Screen MRSA (PCR) Negative (Negative) Test 11/22/17 02:40 11/22/17 03:40 11/23/17 06:50 Sodium Level 131 mmol/L (136-145) 135 mmol/L (136-145) Potassium Level 4.9 mmol/L (3.5-5.1) 4.2 mmol/L (3.5-5.1) Chloride Level 98 mmol/L (98-107) 100 mmol/L (98-107) Carbon Dioxide Level 23 mmol/L (21-32) 27 mmol/L (21-32) Anion Gap 10 (6-14) 8 (6-14) Blood Urea Nitrogen 41 mg/dL (7-20) 39 mg/dL (7-20) Creatinine 1.1 mg/dL (0.6-1.0) 1.4 mg/dL (0.6-1.0) Estimated GFR (Cockcroft-Gault) 46.8 35.4 BUN/Creatinine Ratio 37 (6-20) Glucose Level 110 mg/dL (70-99) 106 mg/dL (70-99) Calcium Level 8.1 mg/dL (8.5-10.1) 8.4 mg/dL (8.5-10.1) Total Bilirubin 0.4 mg/dL (0.2-1.0) Aspartate Amino Transf (AST/SGOT) 58 U/L (15-37) Alanine Aminotransferase (ALT/SGPT) 68 U/L (14-59) Alkaline Phosphatase 63 U/L (46-116) Troponin I Quantitative < 0.017 ng/mL (0.000-0.055) Total Protein 5.5 g/dL (6.4-8.2) Albumin 2.2 g/dL (3.4-5.0) Albumin/Globulin Ratio 0.7 (1.0-1.7) White Blood Count 12.4 x10^3/uL (4.0-11.0) 12.2 x10^3/uL (4.0-11.0) Red Blood Count 3.40 x10^6/uL (3.50-5.40) 3.23 x10^6/uL (3.50-5.40) Hemoglobin 10.9 g/dL (12.0-15.5) 10.4 g/dL (12.0-15.5) Hematocrit 32.3 % (36.0-47.0) 30.5 % (36.0-47.0) Mean Corpuscular Volume 95 fL (79-100) 95 fL (79-100) Mean Corpuscular Hemoglobin 32 pg (25-35) 32 pg (25-35) Mean Corpuscular Hemoglobin Concent 34 g/dL (31-37) 34 g/dL (31-37) Red Cell Distribution Width 13.0 % (11.5-14.5) 13.1 % (11.5-14.5) Platelet Count 413 x10^3/uL (140-400) 391 x10^3/uL (140-400) Neutrophils (%) (Auto) 73 % (31-73) 77 % (31-73) Lymphocytes (%) (Auto) 14 % (24-48) 12 % (24-48) Monocytes (%) (Auto) 10 % (0-9) 8 % (0-9) Eosinophils (%) (Auto) 2 % (0-3) 2 % (0-3) Basophils (%) (Auto) 0 % (0-3) 0 % (0-3) Neutrophils # (Auto) 9.1 x10^3uL (1.8-7.7) 9.4 x10^3uL (1.8-7.7) Lymphocytes # (Auto) 1.7 x10^3/uL (1.0-4.8) 1.5 x10^3/uL (1.0-4.8) Monocytes # (Auto) 1.3 x10^3/uL (0.0-1.1) 1.0 x10^3/uL (0.0-1.1) Eosinophils # (Auto) 0.3 x10^3/uL (0.0-0.7) 0.2 x10^3/uL (0.0-0.7) Basophils # (Auto) 0.0 x10^3/uL (0.0-0.2) 0.1 x10^3/uL (0.0-0.2) Laboratory Tests Test 11/23/17 06:50 White Blood Count 12.2 x10^3/uL (4.0-11.0) Red Blood Count 3.23 x10^6/uL (3.50-5.40) Hemoglobin 10.4 g/dL (12.0-15.5) Hematocrit 30.5 % (36.0-47.0) Mean Corpuscular Volume 95 fL (79-100) Mean Corpuscular Hemoglobin 32 pg (25-35) Mean Corpuscular Hemoglobin Concent 34 g/dL (31-37) Red Cell Distribution Width 13.1 % (11.5-14.5) Platelet Count 391 x10^3/uL (140-400) Neutrophils (%) (Auto) 77 % (31-73) Lymphocytes (%) (Auto) 12 % (24-48) Monocytes (%) (Auto) 8 % (0-9) Eosinophils (%) (Auto) 2 % (0-3) Basophils (%) (Auto) 0 % (0-3) Neutrophils # (Auto) 9.4 x10^3uL (1.8-7.7) Lymphocytes # (Auto) 1.5 x10^3/uL (1.0-4.8) Monocytes # (Auto) 1.0 x10^3/uL (0.0-1.1) Eosinophils # (Auto) 0.2 x10^3/uL (0.0-0.7) Basophils # (Auto) 0.1 x10^3/uL (0.0-0.2) Sodium Level 135 mmol/L (136-145) Potassium Level 4.2 mmol/L (3.5-5.1) Chloride Level 100 mmol/L (98-107) Carbon Dioxide Level 27 mmol/L (21-32) Anion Gap 8 (6-14) Blood Urea Nitrogen 39 mg/dL (7-20) Creatinine 1.4 mg/dL (0.6-1.0) Estimated GFR (Cockcroft-Gault) 35.4 Glucose Level 106 mg/dL (70-99) Calcium Level 8.4 mg/dL (8.5-10.1) Microbiology 11/21/17 Blood Culture - Preliminary, Resulted NO GROWTH AFTER 1 DAY Medications Current Medications Vancomycin HCl 250 ml @ 250 mls/hr 1X ONCE IV Last administered on 11/21/17at 23:26; Start 11/21/17 at 20:00; Stop 11/21/17 at 20:59; Status DC Piperacillin Sod/ Tazobactam Sod 4.5 gm/Sodium Chloride 100 ml @ 200 mls/hr 1X ONCE IV ; Start 11/21/17 at 20:00; Stop 11/21/17 at 20:29; Status Cancel Piperacillin Sod/ Tazobactam Sod 3.375 gm/Sodium Chloride 50 ml @ 100 mls/hr ONCE ONCE IV Last administered on 11/21/17at 20:35; Start 11/21/17 at 20:00; Stop 11/21/17 at 20:29; Status DC Ondansetron HCl (Zofran) 4 mg PRN Q8HRS PRN IV NAUSEA/VOMITING; Start 11/21/17 at 20:45; Stop 11/22/17 at 20:44; Status DC Fentanyl Citrate (Fentanyl 2ml Vial) 50 mcg PRN Q1HR PRN IV PAIN; Start at 20:45; Stop 11/22/17 at 20:44; Status DC Acetaminophen (Tylenol) 650 mg PRN Q4HRS PRN PO FEVER; Start 11/21/17 at 20:45; Stop 11/22/17 at 20:44; Status Cancel Potassium Chloride/Dextrose/ Sod Cl 1,000 ml @ 100 mls/hr Q10H IV Last administered on 11/22/17at 08:39; Start 11/21/17 at 23:00 Acetaminophen (Tylenol) 650 mg PRN Q6HRS PRN PO FEVER; Start 11/22/17 at 07:15 Acetaminophen (Tylenol) 650 mg PRN Q6HRS PRN PO PAIN; Start 11/22/17 at 07:15; Status UNV Aspirin (Anum Aspirin) 325 mg DAILY PO Last administered on 11/23/17 08:38; Start 11/22/17 at 09:00 Cyclosporine (Restasis) 1 drop BID OU Last administered on 11/23/17 08:38; Start 11/22/17 at 09:00 Docusate Sodium (Colace Solution) 50 mg DAILY PO Last administered on 08:38; Start 11/22/17 at 09:00 Al Hydroxide/Mg Hydroxide (Mylanta Plus Xs) 30 ml PRN Q6HRS PRN PO HEARTBURN / GAS; Start 11/22/17 at 07:15 Magnesium Hydroxide (Milk Of Magnesia) 400 mg PRN BID PRN PO CONSTIPATION; Start 11/22/17 at 07:15 Trazodone HCl (Desyrel) 50 mg QHS PO Last administered on 11/22/17 21:13; Start 11/22/17 at 21:00 Fluvoxamine Maleate (Luvox) 100 mg DAILY PO Last administered on 11/23/17 08: 37; Start 11/22/17 at 09:00 Levothyroxine Sodium (Synthroid) 25 mcg DAILY07 PO Last administered on 05:39; Start 11/22/17 at 07:30 Loperamide HCl (Imodium) 2 mg PRN Q15MIN PRN PO DIARRHEA; Start 11/22/17 at 07: 15; Stop 11/22/17 at 07:15; Status DC Mirtazapine (Remeron) 15 mg QHS PO Last administered on 11/22/17 21:13; Start 11/22/17 at 21:00 Multivitamins (Thera M Plus) 1 tab DAILY PO Last administered on 11/23/17 08: 38; Start 11/22/17 at 09:00 Non-Formulary Medication (Nutrit Supp/ Inulin/Fos/Fiber (Fibersource Hn Liquid) ) 1,500 ml Q8HRS PO ; Start 11/22/17 at 14:00; Status UNV Ondansetron HCl (Zofran Odt) 4 mg Q6HRS PO Last administered on 11/23/17 05:39 ; Start 11/22/17 at 07:30 Scopolamine (Transderm-Scop) 1 patch Q3DAYS TD Last administered on 8/9/18at 08 :25; Start 11/22/17 at 09:00 Trifluoperazine HCl (Stelazine) 5 mg DAILY PO Last administered on 11/23/17at 08 :38; Start 11/22/17 at 09:00 Piperacillin Sod/ Tazobactam Sod (Zosyn Per Pharmacy) 1 each PRN DAILY PRN MC SEE COMMENTS; Start 11/22/17 at 07:15 Loperamide HCl (Imodium) 4 mg PRN Q1HR PRN PO DIARRHEA; Start 11/22/17 at 07:15 Piperacillin Sod/ Tazobactam Sod 2.25 gm/Sodium Chloride 50 ml @ 100 mls/hr Q6HRS IV Last administered on 11/22/17at 18:26; Start 11/22/17 at 07:30 Furosemide (Lasix) 20 mg DAILY IVP Last administered on 11/22/17at 13:00; Start 11/22/17 at 11:30 Vancomycin HCl (Vanco Per Pharmacy) 1 each PRN DAILY PRN MC SEE COMMENTS Last administered on 11/22/17at 13:19; Start 11/22/17 at 11:00 Vancomycin HCl 750 mg/Sodium Chloride 250 ml @ 250 mls/hr Q36H IV ; Start 11/23 at 11:00 Vancomycin HCl (Vancomycin Trough Level) 1 each 1X ONCE MC ; Start 11/24/17 at 22:30; Stop 11/24/17 at 22:31 Ondansetron HCl (Zofran) 4 mg PRN Q6HRS PRN IV NAUSEA/VOMITING 1ST IV CHOICE; Start 11/23/17 at 08:30 Active Scripts Active Reported Transderm-Scop (Scopolamine) 1 Each Patch.td72 1 Patch TP Q3DAYS Levothyroxine Sodium 25 Mcg Tablet 1 Tab PO DAILY Trifluoperazine Hcl 5 Mg Tablet 5 Mg PO DAILY Loperamide (Loperamide Hcl) 2 Mg Tablet 4 Mg PO PRN Q1HR PRN Remeron (Mirtazapine) 15 Mg Tablet 1 Tab PO DAILY Fluvoxamine Maleate 100 Mg Tablet 1 Tab PO DAILY Trazodone Hcl 50 Mg Tablet 1 Tab PO QHS Fibersource Hn Liquid (Nutrit Supp/Inulin/Fos/Fiber) 1,500 Ml Liquid 1,500 Ml PO Q8HRS Maalox Maximum Strength Susp (Mag Hydrox/Al Hydrox/Simeth) 355 Ml Oral.susp 355 Ml PO PRN Q6HRS PRN Maalox Maximum Strength Susp (Mag Hydrox/Al Hydrox/Simeth) 355 Ml Oral.susp 355 Ml PO Milk Of Magnesia (Magnesium Hydroxide) 400 Mg/5 Ml Oral.susp 400 Mg PO PRN BID PRN Tylenol (Acetaminophen) 325 Mg Tablet 2 Tab PO PRN Q6HRS PRN Tylenol (Acetaminophen) 325 Mg Tablet 2 Tab PO PRN Q6HRS PRN Restasis (Cyclosporine) 1 Each Droperette 1 Drop EACHEYE BID Multivitamins (Multivitamin) 1 Each Tablet 1 Tab PO DAILY Miconazole Nitrate 45 Gm Cream.appl 45 Gm VG Women's Laxative (Bisacodyl) 5 Mg Tablet 5 Mg PO Aspirin 325 Mg Tablet 1 Tab PO DAILY Calcium 600 + Vit D 400 Softgl (Calcium Carbonate/Vitamin D3) 1 Each Capsule 1 Each PO Docusate Sodium 50 Mg/5 Ml Liquid 50 Mg PO Zofran (Ondansetron Hcl) 4 Mg Tablet 1 Tab PO Q6HRS Vitals/I & O Vital Sign - Last 24 Hours 11/22/17 11/22/17 11/22/17 11/22/17 11:00 15:00 19:00 20:00 Temp 98.1 97.5 98.0 98.1 97.5 98.0 Pulse 64 79 76 Resp 16 16 20 B/P (MAP) 105/48 (67) 88/45 (59) 123/64 (83) Pulse Ox 94 93 94 O2 Delivery Room Air Room Air Room Air Room Air 11/22/17 11/23/17 11/23/17 22:31 02:46 07:00 Temp 97.6 97.5 97.7 97.6 97.5 97.7 Pulse 73 81 73 Resp 22 20 18 B/P (MAP) 93/47 (62) 104/59 (74) 143/67 (92) Pulse Ox 92 93 93 O2 Delivery Room Air Room Air Room Air Intake and Output 11/22/17 11/22/17 11/23/17 15:00 23:00 07:00 Intake Total 0 ml 100 ml Output Total 1250 ml 750 ml Balance -1250 ml -650 ml Nutrition Consultation Dietary Evaluation: Recommendations by RD: Increase Calorie Intake, Protein supplementation Comments: Pt is NPO initated nutrition via PEG Expected Outcomes/Goals: tolerate TF at goal wt maintainance Interpretation of weight loss: >1-2% in 1 week Malnutrition Findings: Body Fat Depletion (Non Severe: Mild Depletion Weight Status: Underweight ROSEMARIE RICHARDSON MD Nov 23, 2017 10:32
[2017-11-23 11:00] VITALS: BP 95/47
[2017-11-23] MEDS ORDERED: VANCOMYCIN 750 MG in IV NORMAL SALINE 250ML 250 ML IV SCH (11:00)
--- NOTE | 2017-11-23 11:31 | PDOC ---
Infectious Disease Note Subjective Subjective nonverbal ROS ROS unable to obtain Vital Sign Vital Signs Vital Signs Date Time Temp Pulse Resp B/P (MAP) Pulse Ox O2 Delivery O2 Flow Rate FiO2 11/23/17 11:00 98.1 67 14 95/47 (63) 92 Room Air 98.1 Physical Exam PHYSICAL EXAM CONSTITUTIONAL: She is in bed. She is in no acute distress. She opens her eyes. She smiled NECK: Without JVD. LUNGS: Decreased in the bases. HEART: S1, S2. ABDOMEN: Soft. PEG tube in place. No guarding or rebound. : Morris in place EXTREMITIES: Without clubbing or cyanosis. Trace edema. SKIN: Warm to touch. She has multiple ecchymoses and superficial wound, but no gross rash. NEUROLOGIC: She is minimally responsive and aphasic apart from opening her eye Labs Lab Laboratory Tests Test 11/23/17 06:50 White Blood Count 12.2 x10^3/uL (4.0-11.0) Red Blood Count 3.23 x10^6/uL (3.50-5.40) Hemoglobin 10.4 g/dL (12.0-15.5) Hematocrit 30.5 % (36.0-47.0) Mean Corpuscular Volume 95 fL (79-100) Mean Corpuscular Hemoglobin 32 pg (25-35) Mean Corpuscular Hemoglobin Concent 34 g/dL (31-37) Red Cell Distribution Width 13.1 % (11.5-14.5) Platelet Count 391 x10^3/uL (140-400) Neutrophils (%) (Auto) 77 % (31-73) Lymphocytes (%) (Auto) 12 % (24-48) Monocytes (%) (Auto) 8 % (0-9) Eosinophils (%) (Auto) 2 % (0-3) Basophils (%) (Auto) 0 % (0-3) Neutrophils # (Auto) 9.4 x10^3uL (1.8-7.7) Lymphocytes # (Auto) 1.5 x10^3/uL (1.0-4.8) Monocytes # (Auto) 1.0 x10^3/uL (0.0-1.1) Eosinophils # (Auto) 0.2 x10^3/uL (0.0-0.7) Basophils # (Auto) 0.1 x10^3/uL (0.0-0.2) Sodium Level 135 mmol/L (136-145) Potassium Level 4.2 mmol/L (3.5-5.1) Chloride Level 100 mmol/L (98-107) Carbon Dioxide Level 27 mmol/L (21-32) Anion Gap 8 (6-14) Blood Urea Nitrogen 39 mg/dL (7-20) Creatinine 1.4 mg/dL (0.6-1.0) Estimated GFR (Cockcroft-Gault) 35.4 Glucose Level 106 mg/dL (70-99) Calcium Level 8.4 mg/dL (8.5-10.1) Micro Microbiology 11/21/17 Blood Culture - Preliminary, Resulted NO GROWTH AFTER [address] chest IMPRESSION: 1. In the bilateral basilar lower lobes there is mild peribronchial thickening and patchy consolidations suggestive of bronchitis and early bronchopneumonia versus atelectasis. 2. Mild cardiomegaly. No pleural effusion or interstitial edema. 3. Small hiatal hernia. Objective Assessment UTI- POA 11/21 Leukocytosis TERRY ? bronchopneumonia on CT Bactrim allergy Multiple superficial wounds S/p Large late acute left MCA infarct MRI 11/11 ? Pneumonia Plan Plan of Care Cont Zosyn D/c Vanc with increasing Cr. Begin Zyvox for bronchopulm process F/u labs and cults [place] records reviewed CATALINA CHARLES MD Nov 23, 2017 11:31
--- NOTE | 2017-11-23 12:30 | PDOC ---
PULMONARY PROGRESS NOTES Subjective no soa Vitals Vital Signs Date Time Temp Pulse Resp B/P (MAP) Pulse Ox O2 Delivery O2 Flow Rate FiO2 11/23/17 11:00 98.1 67 14 95/47 (63) 92 Room Air 98.1 General: Alert, No acute distress Lungs: Clear Cardiovascular: S1 Abdomen: Soft Neuro Exam: Alert Extremities: No Edema Skin: Warm Labs Laboratory Tests Test 11/21/17 18:25 11/21/17 18:44 11/21/17 20:10 11/22/17 01:00 White Blood Count 14.4 x10^3/uL (4.0-11.0) Red Blood Count 3.71 x10^6/uL (3.50-5.40) Hemoglobin 11.8 g/dL (12.0-15.5) Hematocrit 34.9 % (36.0-47.0) Mean Corpuscular Volume 94 fL (79-100) Mean Corpuscular Hemoglobin 32 pg (25-35) Mean Corpuscular Hemoglobin Concent 34 g/dL (31-37) Red Cell Distribution Width 13.1 % (11.5-14.5) Platelet Count 466 x10^3/uL (140-400) Neutrophils (%) (Auto) 79 % (31-73) Lymphocytes (%) (Auto) 11 % (24-48) Monocytes (%) (Auto) 9 % (0-9) Eosinophils (%) (Auto) 1 % (0-3) Basophils (%) (Auto) 1 % (0-3) Neutrophils # (Auto) 11.3 x10^3uL (1.8-7.7) Lymphocytes # (Auto) 1.5 x10^3/uL (1.0-4.8) Monocytes # (Auto) 1.3 x10^3/uL (0.0-1.1) Eosinophils # (Auto) 0.1 x10^3/uL (0.0-0.7) Basophils # (Auto) 0.1 x10^3/uL (0.0-0.2) Lactic Acid Level 1.2 mmol/L (0.4-2.0) Sodium Level 130 mmol/L (136-145) Potassium Level 4.7 mmol/L (3.5-5.1) Chloride Level 96 mmol/L (98-107) Carbon Dioxide Level 26 mmol/L (21-32) Anion Gap 8 (6-14) Blood Urea Nitrogen 46 mg/dL (7-20) Creatinine 1.1 mg/dL (0.6-1.0) Estimated GFR (Cockcroft-Gault) 46.8 BUN/Creatinine Ratio 42 (6-20) Glucose Level 105 mg/dL (70-99) Calcium Level 9.4 mg/dL (8.5-10.1) Total Bilirubin 0.3 mg/dL (0.2-1.0) Aspartate Amino Transf (AST/SGOT) 57 U/L (15-37) Alanine Aminotransferase (ALT/SGPT) 75 U/L (14-59) Alkaline Phosphatase 66 U/L (46-116) Troponin I Quantitative < 0.017 ng/mL (0.000-0.055) DS-Kik-O-Type Natriuretic Peptide 1190 pg/mL (0-449) Total Protein 7.1 g/dL (6.4-8.2) Albumin 2.6 g/dL (3.4-5.0) Albumin/Globulin Ratio 0.6 (1.0-1.7) Lipase 218 U/L (73-393) Thyroid Stimulating Hormone (TSH) 1.768 uIU/mL (0.358-3.74) Urine Collection Type Unknown Urine Color Yellow Urine Clarity Clear Urine pH 7.0 Urine Specific [place] 1.015 Urine Protein Negative mg/dL (NEG-TRACE) Urine Glucose (UA) Negative mg/dL (NEG) Urine Ketones (Stick) Negative mg/dL (NEG) Urine Blood Negative (NEG) Urine Nitrite Positive (NEG) Urine Bilirubin Negative (NEG) Urine Urobilinogen Dipstick 0.2 mg/dL (0.2 mg/dL) Urine Leukocyte Esterase Large (NEG) Urine RBC Occ /HPF (0-2) Urine WBC 5-10 /HPF (0-4) Urine Squamous Epithelial Cells Few /LPF Urine Renal Epithelial Cells Occ /LPF Urine Bacteria Many /HPF (0-FEW) Nasal Screen MRSA (PCR) Negative (Negative) Test 11/22/17 02:40 11/22/17 03:40 11/23/17 06:50 Sodium Level 131 mmol/L (136-145) 135 mmol/L (136-145) Potassium Level 4.9 mmol/L (3.5-5.1) 4.2 mmol/L (3.5-5.1) Chloride Level 98 mmol/L (98-107) 100 mmol/L (98-107) Carbon Dioxide Level 23 mmol/L (21-32) 27 mmol/L (21-32) Anion Gap 10 (6-14) 8 (6-14) Blood Urea Nitrogen 41 mg/dL (7-20) 39 mg/dL (7-20) Creatinine 1.1 mg/dL (0.6-1.0) 1.4 mg/dL (0.6-1.0) Estimated GFR (Cockcroft-Gault) 46.8 35.4 BUN/Creatinine Ratio 37 (6-20) Glucose Level 110 mg/dL (70-99) 106 mg/dL (70-99) Calcium Level 8.1 mg/dL (8.5-10.1) 8.4 mg/dL (8.5-10.1) Total Bilirubin 0.4 mg/dL (0.2-1.0) Aspartate Amino Transf (AST/SGOT) 58 U/L (15-37) Alanine Aminotransferase (ALT/SGPT) 68 U/L (14-59) Alkaline Phosphatase 63 U/L (46-116) Troponin I Quantitative < 0.017 ng/mL (0.000-0.055) Total Protein 5.5 g/dL (6.4-8.2) Albumin 2.2 g/dL (3.4-5.0) Albumin/Globulin Ratio 0.7 (1.0-1.7) White Blood Count 12.4 x10^3/uL (4.0-11.0) 12.2 x10^3/uL (4.0-11.0) Red Blood Count 3.40 x10^6/uL (3.50-5.40) 3.23 x10^6/uL (3.50-5.40) Hemoglobin 10.9 g/dL (12.0-15.5) 10.4 g/dL (12.0-15.5) Hematocrit 32.3 % (36.0-47.0) 30.5 % (36.0-47.0) Mean Corpuscular Volume 95 fL (79-100) 95 fL (79-100) Mean Corpuscular Hemoglobin 32 pg (25-35) 32 pg (25-35) Mean Corpuscular Hemoglobin Concent 34 g/dL (31-37) 34 g/dL (31-37) Red Cell Distribution Width 13.0 % (11.5-14.5) 13.1 % (11.5-14.5) Platelet Count 413 x10^3/uL (140-400) 391 x10^3/uL (140-400) Neutrophils (%) (Auto) 73 % (31-73) 77 % (31-73) Lymphocytes (%) (Auto) 14 % (24-48) 12 % (24-48) Monocytes (%) (Auto) 10 % (0-9) 8 % (0-9) Eosinophils (%) (Auto) 2 % (0-3) 2 % (0-3) Basophils (%) (Auto) 0 % (0-3) 0 % (0-3) Neutrophils # (Auto) 9.1 x10^3uL (1.8-7.7) 9.4 x10^3uL (1.8-7.7) Lymphocytes # (Auto) 1.7 x10^3/uL (1.0-4.8) 1.5 x10^3/uL (1.0-4.8) Monocytes # (Auto) 1.3 x10^3/uL (0.0-1.1) 1.0 x10^3/uL (0.0-1.1) Eosinophils # (Auto) 0.3 x10^3/uL (0.0-0.7) 0.2 x10^3/uL (0.0-0.7) Basophils # (Auto) 0.0 x10^3/uL (0.0-0.2) 0.1 x10^3/uL (0.0-0.2) Laboratory Tests Test 11/23/17 06:50 White Blood Count 12.2 x10^3/uL (4.0-11.0) Red Blood Count 3.23 x10^6/uL (3.50-5.40) Hemoglobin 10.4 g/dL (12.0-15.5) Hematocrit 30.5 % (36.0-47.0) Mean Corpuscular Volume 95 fL (79-100) Mean Corpuscular Hemoglobin 32 pg (25-35) Mean Corpuscular Hemoglobin Concent 34 g/dL (31-37) Red Cell Distribution Width 13.1 % (11.5-14.5) Platelet Count 391 x10^3/uL (140-400) Neutrophils (%) (Auto) 77 % (31-73) Lymphocytes (%) (Auto) 12 % (24-48) Monocytes (%) (Auto) 8 % (0-9) Eosinophils (%) (Auto) 2 % (0-3) Basophils (%) (Auto) 0 % (0-3) Neutrophils # (Auto) 9.4 x10^3uL (1.8-7.7) Lymphocytes # (Auto) 1.5 x10^3/uL (1.0-4.8) Monocytes # (Auto) 1.0 x10^3/uL (0.0-1.1) Eosinophils # (Auto) 0.2 x10^3/uL (0.0-0.7) Basophils # (Auto) 0.1 x10^3/uL (0.0-0.2) Sodium Level 135 mmol/L (136-145) Potassium Level 4.2 mmol/L (3.5-5.1) Chloride Level 100 mmol/L (98-107) Carbon Dioxide Level 27 mmol/L (21-32) Anion Gap 8 (6-14) Blood Urea Nitrogen 39 mg/dL (7-20) Creatinine 1.4 mg/dL (0.6-1.0) Estimated GFR (Cockcroft-Gault) 35.4 Glucose Level 106 mg/dL (70-99) Calcium Level 8.4 mg/dL (8.5-10.1) Medications Active Scripts Medications Dose Route/Sig Max Daily Dose Days Date Category Transderm-Scop (Scopolamine) 1 Each Patch.td72 1 Patch TP Q3DAYS 11/21/17 Reported Levothyroxine Sodium 25 Mcg Tablet 1 Tab PO DAILY 11/21/17 Reported Trifluoperazine Hcl 5 Mg Tablet 5 Mg PO DAILY 11/21/17 Reported Loperamide (Loperamide Hcl) 2 Mg Tablet 4 Mg PO PRN Q1HR PRN 11/21/17 Reported Remeron (Mirtazapine) 15 Mg Tablet 1 Tab PO DAILY 11/21/17 Reported Fluvoxamine Maleate 100 Mg Tablet 1 Tab PO DAILY 11/21/17 Reported Trazodone Hcl 50 Mg Tablet 1 Tab PO QHS 11/21/17 Reported Fibersource Hn Liquid (Nutrit Supp/Inulin/Fos/Fiber) 1,500 Ml Liquid 1,500 Ml PO Q8HRS 11/21/17 Reported Maalox Maximum Strength Susp (Mag Hydrox/Al Hydrox/Simeth) 355 Ml Oral.susp 355 Ml PO PRN Q6HRS PRN 11/21/17 Reported Maalox Maximum Strength Susp (Mag Hydrox/Al Hydrox/Simeth) 355 Ml Oral.susp 355 Ml PO 11/21/17 Reported Milk Of Magnesia (Magnesium Hydroxide) 400 Mg/5 Ml Oral.susp 400 Mg PO PRN BID PRN 11/21/17 Reported Tylenol (Acetaminophen) 325 Mg Tablet 2 Tab PO PRN Q6HRS PRN 11/21/17 Reported Tylenol (Acetaminophen) 325 Mg Tablet 2 Tab PO PRN Q6HRS PRN 11/21/17 Reported Restasis (Cyclosporine) 1 Each Droperette 1 Drop EACHEYE BID 11/21/17 Reported Multivitamins (Multivitamin) 1 Each Tablet 1 Tab PO DAILY 11/21/17 Reported Miconazole Nitrate 45 Gm Cream.appl 45 Gm VG 11/21/17 Reported Women's Laxative (Bisacodyl) 5 Mg Tablet 5 Mg PO 11/21/17 Reported Aspirin 325 Mg Tablet 1 Tab PO DAILY 11/21/17 Reported Calcium 600 + Vit D 400 Softgl (Calcium Carbonate/Vitamin D3) 1 Each Capsule 1 Each PO 11/21/17 Reported Docusate Sodium 50 Mg/5 Ml Liquid 50 Mg PO 11/21/17 Reported Zofran (Ondansetron Hcl) 4 Mg Tablet 1 Tab PO Q6HRS 11/21/17 Reported Impression . 1. Abnormal chest x-ray suggesting prominent interstitial markings; however, clinically she appears to be dry with azotemia. Clinically, less likely congestive heart failure, CT chest reviewed. c/w basal pneumonia. 2. Low grade fever 3. Acute kidney injury. Related to dehydration. 4. Hyponatremia. 5. Severe protein-calorie malnutrition. Plan . 1. Continue antibiotics per Infectious Disease. 2. Noncontrast CT chest c/w pneumonia. no CHF 3. dc lasix 4. Follow renal function. 5. Follow sodium. LORENA WALTERS MD Nov 23, 2017 12:30
[2017-11-23 15:00] VITALS: BP 119/53
[2017-11-23 22:10] VITALS: BP 131/67
[2017-11-23] MEDS: MIRTAZAPINE 15 MG TABLET PO SCH (22:17)
[2017-11-23] MEDS: LINEZOLID 600 MG TABLET PO SCH (22:17)
[2017-11-23] MEDS: traZODone 50 MG TABLET. PO SCH (22:17)
[2017-11-24 03:45] VITALS: BP 119/55
[2017-11-24] MEDS: PIPERACILLIN/TAZOBACTAM 2.25 GM in IV NORMAL SALINE 50ML 50 ML IV SCH ×3 (05:20→18:03)
[2017-11-24] MEDS: ONDANSETRON ODT 4 MG TAB.RAPDIS. PO SCH ×3 (05:27→18:03)
[2017-11-24] MEDS: LEVOTHYROXINE 25 MCG TABLET. PO SCH (05:27)
[2017-11-24 06:11] LABS: CALCIUM 8.2 mg/dL (8.5-10.1); CREATININE 1.3 mg/dL (0.6-1.0); GFR 38.6; POTASSIUM 4.3 mmol/L (3.5-5.1)
[2017-11-24 06:23] LABS: BASO % 0 % (0-3); EOS # 0.2 x10^3/uL (0.0-0.7); EOS % 1 % (0-3); HEMATOCRIT 28.6 % (36.0-47.0); HEMOGLOBIN 9.8 g/dL (12.0-15.5); LYMPH # 1.5 x10^3/uL (1.0-4.8); LYMPH % 12 % (24-48); MEAN CORPUSCULAR HEMOGLOBIN 33 pg (25-35); MEAN CORPUSCULAR HGB CONC 34 g/dL (31-37); MEAN CORPUSCULAR VOLUME 95 fL (79-100); MONO # 1.1 x10^3/uL (0.0-1.1); MONO % 8 % (0-9); NEUT # 9.9 x10^3uL (1.8-7.7); NEUT % 78 % (31-73); PLATELET COUNT 355 x10^3/uL (140-400); RED BLOOD COUNT 3.01 x10^6/uL (3.50-5.40); RED CELL DISTRIBUTION WIDTH 12.8 % (11.5-14.5); WHITE BLOOD COUNT 12.7 x10^3/uL (4.0-11.0)
[2017-11-24 07:00] VITALS: BP 135/52
--- NOTE | 2017-11-24 07:54 | PDOC ---
Infectious Disease Note Subjective Subjective nonverbal ROS ROS unable to obtain Vital Sign Vital Signs Vital Signs Date Time Temp Pulse Resp B/P (MAP) Pulse Ox O2 Delivery O2 Flow Rate FiO2 11/24/17 03:45 97.4 77 20 119/55 (76) 100 Room Air 97.4 Physical Exam PHYSICAL EXAM CONSTITUTIONAL: She is in bed. She is in no acute distress. She opens her eyes. She smiled. Very alert NECK: Without JVD. LUNGS: Decreased in the bases. HEART: S1, S2. ABDOMEN: Soft. PEG tube in place. No guarding or rebound. : Morris in place EXTREMITIES: Without clubbing or cyanosis. Trace edema. SKIN: Warm to touch. She has multiple ecchymoses and superficial wound, but no gross rash. NEUROLOGIC: She is minimally responsive and aphasic apart from opening her eye Labs Lab Laboratory Tests Test 11/24/17 05:20 White Blood Count 12.7 x10^3/uL (4.0-11.0) Red Blood Count 3.01 x10^6/uL (3.50-5.40) Hemoglobin 9.8 g/dL (12.0-15.5) Hematocrit 28.6 % (36.0-47.0) Mean Corpuscular Volume 95 fL (79-100) Mean Corpuscular Hemoglobin 33 pg (25-35) Mean Corpuscular Hemoglobin Concent 34 g/dL (31-37) Red Cell Distribution Width 12.8 % (11.5-14.5) Platelet Count 355 x10^3/uL (140-400) Neutrophils (%) (Auto) 78 % (31-73) Lymphocytes (%) (Auto) 12 % (24-48) Monocytes (%) (Auto) 8 % (0-9) Eosinophils (%) (Auto) 1 % (0-3) Basophils (%) (Auto) 0 % (0-3) Neutrophils # (Auto) 9.9 x10^3uL (1.8-7.7) Lymphocytes # (Auto) 1.5 x10^3/uL (1.0-4.8) Monocytes # (Auto) 1.1 x10^3/uL (0.0-1.1) Eosinophils # (Auto) 0.2 x10^3/uL (0.0-0.7) Basophils # (Auto) 0.0 x10^3/uL (0.0-0.2) Sodium Level 134 mmol/L (136-145) Potassium Level 4.3 mmol/L (3.5-5.1) Chloride Level 102 mmol/L (98-107) Carbon Dioxide Level 25 mmol/L (21-32) Anion Gap 7 (6-14) Blood Urea Nitrogen 31 mg/dL (7-20) Creatinine 1.3 mg/dL (0.6-1.0) Estimated GFR (Cockcroft-Gault) 38.6 Glucose Level 137 mg/dL (70-99) Calcium Level 8.2 mg/dL (8.5-10.1) Micro Microbiology 11/21/17 Blood Culture - Preliminary, Resulted NO GROWTH AFTER [address] chest IMPRESSION: 1. In the bilateral basilar lower lobes there is mild peribronchial thickening and patchy consolidations suggestive of bronchitis and early bronchopneumonia versus atelectasis. 2. Mild cardiomegaly. No pleural effusion or interstitial edema. 3. Small hiatal hernia. Objective Assessment UTI- POA 11/21 -Proteus Leukocytosis - stable TERRY - better today ? bronchopneumonia on CT Bactrim allergy Multiple superficial wounds S/p Large late acute left MCA infarct MRI 11/11 Plan Plan of Care Cont Zosyn/Zyvox for bronchopulm process F/u labs and cults [place] records reviewed CATALINA CHARLES MD Nov 24, 2017 07:54
--- NOTE | 2017-11-24 08:41 | PDOC ---
PULMONARY PROGRESS NOTES Subjective appears comfortable. doesnt follow my commands Vitals Vital Signs Date Time Temp Pulse Resp B/P (MAP) Pulse Ox O2 Delivery O2 Flow Rate FiO2 11/24/17 07:00 97.2 76 18 135/52 (79) 98 Room Air 97.2 General: Alert, No acute distress Lungs: Crackles Cardiovascular: S1, S2 Abdomen: Soft, Non-tender Neuro Exam: Alert Extremities: No Edema Skin: Warm Labs Laboratory Tests Test 11/23/17 06:50 11/24/17 05:20 White Blood Count 12.2 x10^3/uL (4.0-11.0) 12.7 x10^3/uL (4.0-11.0) Red Blood Count 3.23 x10^6/uL (3.50-5.40) 3.01 x10^6/uL (3.50-5.40) Hemoglobin 10.4 g/dL (12.0-15.5) 9.8 g/dL (12.0-15.5) Hematocrit 30.5 % (36.0-47.0) 28.6 % (36.0-47.0) Mean Corpuscular Volume 95 fL (79-100) 95 fL (79-100) Mean Corpuscular Hemoglobin 32 pg (25-35) 33 pg (25-35) Mean Corpuscular Hemoglobin Concent 34 g/dL (31-37) 34 g/dL (31-37) Red Cell Distribution Width 13.1 % (11.5-14.5) 12.8 % (11.5-14.5) Platelet Count 391 x10^3/uL (140-400) 355 x10^3/uL (140-400) Neutrophils (%) (Auto) 77 % (31-73) 78 % (31-73) Lymphocytes (%) (Auto) 12 % (24-48) 12 % (24-48) Monocytes (%) (Auto) 8 % (0-9) 8 % (0-9) Eosinophils (%) (Auto) 2 % (0-3) 1 % (0-3) Basophils (%) (Auto) 0 % (0-3) 0 % (0-3) Neutrophils # (Auto) 9.4 x10^3uL (1.8-7.7) 9.9 x10^3uL (1.8-7.7) Lymphocytes # (Auto) 1.5 x10^3/uL (1.0-4.8) 1.5 x10^3/uL (1.0-4.8) Monocytes # (Auto) 1.0 x10^3/uL (0.0-1.1) 1.1 x10^3/uL (0.0-1.1) Eosinophils # (Auto) 0.2 x10^3/uL (0.0-0.7) 0.2 x10^3/uL (0.0-0.7) Basophils # (Auto) 0.1 x10^3/uL (0.0-0.2) 0.0 x10^3/uL (0.0-0.2) Sodium Level 135 mmol/L (136-145) 134 mmol/L (136-145) Potassium Level 4.2 mmol/L (3.5-5.1) 4.3 mmol/L (3.5-5.1) Chloride Level 100 mmol/L (98-107) 102 mmol/L (98-107) Carbon Dioxide Level 27 mmol/L (21-32) 25 mmol/L (21-32) Anion Gap 8 (6-14) 7 (6-14) Blood Urea Nitrogen 39 mg/dL (7-20) 31 mg/dL (7-20) Creatinine 1.4 mg/dL (0.6-1.0) 1.3 mg/dL (0.6-1.0) Estimated GFR (Cockcroft-Gault) 35.4 38.6 Glucose Level 106 mg/dL (70-99) 137 mg/dL (70-99) Calcium Level 8.4 mg/dL (8.5-10.1) 8.2 mg/dL (8.5-10.1) Laboratory Tests Test 11/24/17 05:20 White Blood Count 12.7 x10^3/uL (4.0-11.0) Red Blood Count 3.01 x10^6/uL (3.50-5.40) Hemoglobin 9.8 g/dL (12.0-15.5) Hematocrit 28.6 % (36.0-47.0) Mean Corpuscular Volume 95 fL (79-100) Mean Corpuscular Hemoglobin 33 pg (25-35) Mean Corpuscular Hemoglobin Concent 34 g/dL (31-37) Red Cell Distribution Width 12.8 % (11.5-14.5) Platelet Count 355 x10^3/uL (140-400) Neutrophils (%) (Auto) 78 % (31-73) Lymphocytes (%) (Auto) 12 % (24-48) Monocytes (%) (Auto) 8 % (0-9) Eosinophils (%) (Auto) 1 % (0-3) Basophils (%) (Auto) 0 % (0-3) Neutrophils # (Auto) 9.9 x10^3uL (1.8-7.7) Lymphocytes # (Auto) 1.5 x10^3/uL (1.0-4.8) Monocytes # (Auto) 1.1 x10^3/uL (0.0-1.1) Eosinophils # (Auto) 0.2 x10^3/uL (0.0-0.7) Basophils # (Auto) 0.0 x10^3/uL (0.0-0.2) Sodium Level 134 mmol/L (136-145) Potassium Level 4.3 mmol/L (3.5-5.1) Chloride Level 102 mmol/L (98-107) Carbon Dioxide Level 25 mmol/L (21-32) Anion Gap 7 (6-14) Blood Urea Nitrogen 31 mg/dL (7-20) Creatinine 1.3 mg/dL (0.6-1.0) Estimated GFR (Cockcroft-Gault) 38.6 Glucose Level 137 mg/dL (70-99) Calcium Level 8.2 mg/dL (8.5-10.1) Medications Active Scripts Medications Dose Route/Sig Max Daily Dose Days Date Category Transderm-Scop (Scopolamine) 1 Each Patch.td72 1 Patch TP Q3DAYS 11/21/17 Reported Levothyroxine Sodium 25 Mcg Tablet 1 Tab PO DAILY 11/21/17 Reported Trifluoperazine Hcl 5 Mg Tablet 5 Mg PO DAILY 11/21/17 Reported Loperamide (Loperamide Hcl) 2 Mg Tablet 4 Mg PO PRN Q1HR PRN 11/21/17 Reported Remeron (Mirtazapine) 15 Mg Tablet 1 Tab PO DAILY 11/21/17 Reported Fluvoxamine Maleate 100 Mg Tablet 1 Tab PO DAILY 11/21/17 Reported Trazodone Hcl 50 Mg Tablet 1 Tab PO QHS 11/21/17 Reported Fibersource Hn Liquid (Nutrit Supp/Inulin/Fos/Fiber) 1,500 Ml Liquid 1,500 Ml PO Q8HRS 11/21/17 Reported Maalox Maximum Strength Susp (Mag Hydrox/Al Hydrox/Simeth) 355 Ml Oral.susp 355 Ml PO PRN Q6HRS PRN 11/21/17 Reported Maalox Maximum Strength Susp (Mag Hydrox/Al Hydrox/Simeth) 355 Ml Oral.susp 355 Ml PO 11/21/17 Reported Milk Of Magnesia (Magnesium Hydroxide) 400 Mg/5 Ml Oral.susp 400 Mg PO PRN BID PRN 11/21/17 Reported Tylenol (Acetaminophen) 325 Mg Tablet 2 Tab PO PRN Q6HRS PRN 11/21/17 Reported Tylenol (Acetaminophen) 325 Mg Tablet 2 Tab PO PRN Q6HRS PRN 11/21/17 Reported Restasis (Cyclosporine) 1 Each Droperette 1 Drop EACHEYE BID 11/21/17 Reported Multivitamins (Multivitamin) 1 Each Tablet 1 Tab PO DAILY 11/21/17 Reported Miconazole Nitrate 45 Gm Cream.appl 45 Gm VG 11/21/17 Reported Women's Laxative (Bisacodyl) 5 Mg Tablet 5 Mg PO 11/21/17 Reported Aspirin 325 Mg Tablet 1 Tab PO DAILY 11/21/17 Reported Calcium 600 + Vit D 400 Softgl (Calcium Carbonate/Vitamin D3) 1 Each Capsule 1 Each PO 11/21/17 Reported Docusate Sodium 50 Mg/5 Ml Liquid 50 Mg PO 11/21/17 Reported Zofran (Ondansetron Hcl) 4 Mg Tablet 1 Tab PO Q6HRS 11/21/17 Reported Impression . 1. Abnormal chest x-ray suggesting prominent interstitial markings; however, clinically she appears to be dry with azotemia. Clinically, less likely congestive heart failure, CT chest reviewed. c/w basal pneumonia. 2. Low grade fever, resolved 3. Acute kidney injury. Related to dehydration. 4. Hyponatremia, improving. 5. Severe protein-calorie malnutrition. Plan . 1. Continue antibiotics per Infectious Disease. 2. Noncontrast CT chest c/w pneumonia. no CHF 3. monitor off lasix 4. Follow renal function. 5. Follow sodium. discussed w ABRAHAM Molina MD Nov 24, 2017 08:41
[2017-11-24] MEDS: TRIFLUOPERAZINE 5 MG PO SCH (09:00)
[2017-11-24] MEDS: ASPIRIN 325 MG TABLET PO SCH (09:01)
[2017-11-24] MEDS: MULTIVITAMIN with MINERAL TABLET. PO SCH (09:02)
[2017-11-24] MEDS: DOCUSATE 100 MG/10 ML SOLUTION. PO SCH (09:02)
[2017-11-24] MEDS: cycloSPORINE 0.05% OPTH 1 DROP DROPERETTE OU SCH ×2 (09:03→21:23)
[2017-11-24] MEDS: LINEZOLID 600 MG TABLET PO SCH ×2 (09:15→21:23)
[2017-11-24 11:00] VITALS: BP 89/57
--- NOTE | 2017-11-24 12:06 | PDOC ---
PROGRESS NOTES Chief Complaint Chief Complaint acute metabolic encephalopathy, lethargy on prior CVA and dysphonia sepsis pneumonia Urinary tract infection present on admission, Multiple superficial wounds. 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 She is in no acute distress. She opens her eyes. She smiled. Very alert NECK: Without JVD. LUNGS: Decreased in the bases. HEART: S1, S2. ABDOMEN: Soft. PEG tube in place. No guarding or rebound. : Morris in place EXTREMITIES: Without clubbing or cyanosis. Trace edema. SKIN: Warm to touch. She has multiple ecchymoses and superficial wound, but no gross rash. NEUROLOGIC: She is minimally responsive and aphasic apart from opening her eye General: Cooperative, mild distress Heart: Regular rate, Gallops Lungs: Clear Abdomen: Soft, No tenderness Extremities: No clubbing, No cyanosis, No edema Labs LABS Laboratory Tests Test 11/24/17 05:20 White Blood Count 12.7 x10^3/uL (4.0-11.0) Red Blood Count 3.01 x10^6/uL (3.50-5.40) Hemoglobin 9.8 g/dL (12.0-15.5) Hematocrit 28.6 % (36.0-47.0) Mean Corpuscular Volume 95 fL (79-100) Mean Corpuscular Hemoglobin 33 pg (25-35) Mean Corpuscular Hemoglobin Concent 34 g/dL (31-37) Red Cell Distribution Width 12.8 % (11.5-14.5) Platelet Count 355 x10^3/uL (140-400) Neutrophils (%) (Auto) 78 % (31-73) Lymphocytes (%) (Auto) 12 % (24-48) Monocytes (%) (Auto) 8 % (0-9) Eosinophils (%) (Auto) 1 % (0-3) Basophils (%) (Auto) 0 % (0-3) Neutrophils # (Auto) 9.9 x10^3uL (1.8-7.7) Lymphocytes # (Auto) 1.5 x10^3/uL (1.0-4.8) Monocytes # (Auto) 1.1 x10^3/uL (0.0-1.1) Eosinophils # (Auto) 0.2 x10^3/uL (0.0-0.7) Basophils # (Auto) 0.0 x10^3/uL (0.0-0.2) Sodium Level 134 mmol/L (136-145) Potassium Level 4.3 mmol/L (3.5-5.1) Chloride Level 102 mmol/L (98-107) Carbon Dioxide Level 25 mmol/L (21-32) Anion Gap 7 (6-14) Blood Urea Nitrogen 31 mg/dL (7-20) Creatinine 1.3 mg/dL (0.6-1.0) Estimated GFR (Cockcroft-Gault) 38.6 Glucose Level 137 mg/dL (70-99) Calcium Level 8.2 mg/dL (8.5-10.1) Assessment and Plan Assessmemt and Plan DNR reviewed pt not improved much I discussed at length with daughter in son-in-law. if no improvement, they may consider hospice care. Major complication post CVA with pneumonia Problems Medical Problems: (1) Hyponatremia Status: Acute (2) Pneumonia Status: Acute (3) UTI (urinary tract infection) Status: Acute Comment Review of Relevant I have reviewed the following items tom (where applicable) has been applied. Labs Laboratory Tests Test 11/23/17 06:50 11/24/17 05:20 White Blood Count 12.2 x10^3/uL (4.0-11.0) 12.7 x10^3/uL (4.0-11.0) Red Blood Count 3.23 x10^6/uL (3.50-5.40) 3.01 x10^6/uL (3.50-5.40) Hemoglobin 10.4 g/dL (12.0-15.5) 9.8 g/dL (12.0-15.5) Hematocrit 30.5 % (36.0-47.0) 28.6 % (36.0-47.0) Mean Corpuscular Volume 95 fL (79-100) 95 fL (79-100) Mean Corpuscular Hemoglobin 32 pg (25-35) 33 pg (25-35) Mean Corpuscular Hemoglobin Concent 34 g/dL (31-37) 34 g/dL (31-37) Red Cell Distribution Width 13.1 % (11.5-14.5) 12.8 % (11.5-14.5) Platelet Count 391 x10^3/uL (140-400) 355 x10^3/uL (140-400) Neutrophils (%) (Auto) 77 % (31-73) 78 % (31-73) Lymphocytes (%) (Auto) 12 % (24-48) 12 % (24-48) Monocytes (%) (Auto) 8 % (0-9) 8 % (0-9) Eosinophils (%) (Auto) 2 % (0-3) 1 % (0-3) Basophils (%) (Auto) 0 % (0-3) 0 % (0-3) Neutrophils # (Auto) 9.4 x10^3uL (1.8-7.7) 9.9 x10^3uL (1.8-7.7) Lymphocytes # (Auto) 1.5 x10^3/uL (1.0-4.8) 1.5 x10^3/uL (1.0-4.8) Monocytes # (Auto) 1.0 x10^3/uL (0.0-1.1) 1.1 x10^3/uL (0.0-1.1) Eosinophils # (Auto) 0.2 x10^3/uL (0.0-0.7) 0.2 x10^3/uL (0.0-0.7) Basophils # (Auto) 0.1 x10^3/uL (0.0-0.2) 0.0 x10^3/uL (0.0-0.2) Sodium Level 135 mmol/L (136-145) 134 mmol/L (136-145) Potassium Level 4.2 mmol/L (3.5-5.1) 4.3 mmol/L (3.5-5.1) Chloride Level 100 mmol/L (98-107) 102 mmol/L (98-107) Carbon Dioxide Level 27 mmol/L (21-32) 25 mmol/L (21-32) Anion Gap 8 (6-14) 7 (6-14) Blood Urea Nitrogen 39 mg/dL (7-20) 31 mg/dL (7-20) Creatinine 1.4 mg/dL (0.6-1.0) 1.3 mg/dL (0.6-1.0) Estimated GFR (Cockcroft-Gault) 35.4 38.6 Glucose Level 106 mg/dL (70-99) 137 mg/dL (70-99) Calcium Level 8.4 mg/dL (8.5-10.1) 8.2 mg/dL (8.5-10.1) Laboratory Tests Test 11/24/17 05:20 White Blood Count 12.7 x10^3/uL (4.0-11.0) Red Blood Count 3.01 x10^6/uL (3.50-5.40) Hemoglobin 9.8 g/dL (12.0-15.5) Hematocrit 28.6 % (36.0-47.0) Mean Corpuscular Volume 95 fL (79-100) Mean Corpuscular Hemoglobin 33 pg (25-35) Mean Corpuscular Hemoglobin Concent 34 g/dL (31-37) Red Cell Distribution Width 12.8 % (11.5-14.5) Platelet Count 355 x10^3/uL (140-400) Neutrophils (%) (Auto) 78 % (31-73) Lymphocytes (%) (Auto) 12 % (24-48) Monocytes (%) (Auto) 8 % (0-9) Eosinophils (%) (Auto) 1 % (0-3) Basophils (%) (Auto) 0 % (0-3) Neutrophils # (Auto) 9.9 x10^3uL (1.8-7.7) Lymphocytes # (Auto) 1.5 x10^3/uL (1.0-4.8) Monocytes # (Auto) 1.1 x10^3/uL (0.0-1.1) Eosinophils # (Auto) 0.2 x10^3/uL (0.0-0.7) Basophils # (Auto) 0.0 x10^3/uL (0.0-0.2) Sodium Level 134 mmol/L (136-145) Potassium Level 4.3 mmol/L (3.5-5.1) Chloride Level 102 mmol/L (98-107) Carbon Dioxide Level 25 mmol/L (21-32) Anion Gap 7 (6-14) Blood Urea Nitrogen 31 mg/dL (7-20) Creatinine 1.3 mg/dL (0.6-1.0) Estimated GFR (Cockcroft-Gault) 38.6 Glucose Level 137 mg/dL (70-99) Calcium Level 8.2 mg/dL (8.5-10.1) Microbiology 11/21/17 Blood Culture - Preliminary, Resulted NO GROWTH AFTER 2 DAYS 11/21/17 Urine Culture - Preliminary, Resulted 11/21/17 Urine Culture Result 1 (ATUL) - Preliminary, Resulted Medications Current Medications Vancomycin HCl 250 ml @ 250 mls/hr 1X ONCE IV Last administered on 11/21/17at 23:26; Start 11/21/17 at 20:00; Stop 11/21/17 at 20:59; Status DC Piperacillin Sod/ Tazobactam Sod 4.5 gm/Sodium Chloride 100 ml @ 200 mls/hr 1X ONCE IV ; Start 11/21/17 at 20:00; Stop 11/21/17 at 20:29; Status Cancel Piperacillin Sod/ Tazobactam Sod 3.375 gm/Sodium Chloride 50 ml @ 100 mls/hr ONCE ONCE IV Last administered on 11/21/17at 20:35; Start 11/21/17 at 20:00; Stop 11/21/17 at 20:29; Status DC Ondansetron HCl (Zofran) 4 mg PRN Q8HRS PRN IV NAUSEA/VOMITING; Start 11/21/17 at 20:45; Stop 11/22/17 at 20:44; Status DC Fentanyl Citrate (Fentanyl 2ml Vial) 50 mcg PRN Q1HR PRN IV PAIN; Start at 20:45; Stop 11/22/17 at 20:44; Status DC Acetaminophen (Tylenol) 650 mg PRN Q4HRS PRN PO FEVER; Start 11/21/17 at 20:45; Stop 11/22/17 at 20:44; Status Cancel Potassium Chloride/Dextrose/ Sod Cl 1,000 ml @ 100 mls/hr Q10H IV Last administered on 11/23/17at 23:46; Start 11/21/17 at 23:00 Acetaminophen (Tylenol) 650 mg PRN Q6HRS PRN PO FEVER; Start 11/22/17 at 07:15 Acetaminophen (Tylenol) 650 mg PRN Q6HRS PRN PO PAIN; Start 11/22/17 at 07:15; Status UNV Aspirin (Anum Aspirin) 325 mg DAILY PO Last administered on 11/24/17 09:01; Start 11/22/17 at 09:00 Cyclosporine (Restasis) 1 drop BID OU Last administered on 11/24/17 09:03; Start 11/22/17 at 09:00 Docusate Sodium (Colace Solution) 50 mg DAILY PO Last administered on at 09:02; Start 11/22/17 at 09:00 Al Hydroxide/Mg Hydroxide (Mylanta Plus Xs) 30 ml PRN Q6HRS PRN PO HEARTBURN / GAS; Start 11/22/17 at 07:15 Magnesium Hydroxide (Milk Of Magnesia) 400 mg PRN BID PRN PO CONSTIPATION; Start 11/22/17 at 07:15 Trazodone HCl (Desyrel) 50 mg QHS PO Last administered on 11/23/17at 22:17; Start 11/22/17 at 21:00 Fluvoxamine Maleate (Luvox) 100 mg DAILY PO Last administered on 11/24/17at 09: 02; Start 11/22/17 at 09:00 Levothyroxine Sodium (Synthroid) 25 mcg DAILY07 PO Last administered on at 05:27; Start 11/22/17 at 07:30 Loperamide HCl (Imodium) 2 mg PRN Q15MIN PRN PO DIARRHEA; Start 11/22/17 at 07: 15; Stop 11/22/17 at 07:15; Status DC Mirtazapine (Remeron) 15 mg QHS PO Last administered on 11/23/17at 22:17; Start 11/22/17 at 21:00 Multivitamins (Thera M Plus) 1 tab DAILY PO Last administered on 11/24/17at 09: 02; Start 11/22/17 at 09:00 Non-Formulary Medication (Nutrit Supp/ Inulin/Fos/Fiber (Fibersource Hn Liquid) ) 1,500 ml Q8HRS PO ; Start 11/22/17 at 14:00; Status UNV Ondansetron HCl (Zofran Odt) 4 mg Q6HRS PO Last administered on 11/24/17at 05:27 ; Start 11/22/17 at 07:30 Scopolamine (Transderm-Scop) 1 patch Q3DAYS TD Last administered on 11/22/17at 08 :25; Start 11/22/17 at 09:00 Trifluoperazine HCl (Stelazine) 5 mg DAILY PO Last administered on 11/24/17at 09 :00; Start 11/22/17 at 09:00 Piperacillin Sod/ Tazobactam Sod (Zosyn Per Pharmacy) 1 each PRN DAILY PRN MC SEE COMMENTS; Start 11/22/17 at 07:15 Loperamide HCl (Imodium) 4 mg PRN Q1HR PRN PO DIARRHEA; Start 11/22/17 at 07:15 Piperacillin Sod/ Tazobactam Sod 2.25 gm/Sodium Chloride 50 ml @ 100 mls/hr Q6HRS IV Last administered on 11/24/17at 05:20; Start 11/22/17 at 07:30 Furosemide (Lasix) 20 mg DAILY IVP Last administered on 11/22/17at 13:00; Start 11/22/17 at 11:30; Stop 11/23/17 at 12:31; Status DC Vancomycin HCl (Vanco Per Pharmacy) 1 each PRN DAILY PRN MC SEE COMMENTS Last administered on 11/22/17at 13:19; Start 11/22/17 at 11:00; Stop 11/23/17 at 11:29; Status DC Vancomycin HCl 750 mg/Sodium Chloride 250 ml @ 250 mls/hr Q36H IV ; Start 11/23 at 11:00; Stop 11/23/17 at 11:29; Status DC Vancomycin HCl (Vancomycin Trough Level) 1 each 1X ONCE MC ; Start 11/24/17 at 22:30; Stop 11/24/17 at 22:31; Status Cancel Ondansetron HCl (Zofran) 4 mg PRN Q6HRS PRN IV NAUSEA/VOMITING 1ST IV CHOICE; Start 11/23/17 at 08:30 Linezolid (Zyvox) 600 mg BID PO Last administered on 11/24/17at 09:15; Start 01/31 at 21:00 Active Scripts Active Reported Transderm-Scop (Scopolamine) 1 Each Patch.td72 1 Patch TP Q3DAYS Levothyroxine Sodium 25 Mcg Tablet 1 Tab PO DAILY Trifluoperazine Hcl 5 Mg Tablet 5 Mg PO DAILY Loperamide (Loperamide Hcl) 2 Mg Tablet 4 Mg PO PRN Q1HR PRN Remeron (Mirtazapine) 15 Mg Tablet 1 Tab PO DAILY Fluvoxamine Maleate 100 Mg Tablet 1 Tab PO DAILY Trazodone Hcl 50 Mg Tablet 1 Tab PO QHS Fibersource Hn Liquid (Nutrit Supp/Inulin/Fos/Fiber) 1,500 Ml Liquid 1,500 Ml PO Q8HRS Maalox Maximum Strength Susp (Mag Hydrox/Al Hydrox/Simeth) 355 Ml Oral.susp 355 Ml PO PRN Q6HRS PRN Maalox Maximum Strength Susp (Mag Hydrox/Al Hydrox/Simeth) 355 Ml Oral.susp 355 Ml PO Milk Of Magnesia (Magnesium Hydroxide) 400 Mg/5 Ml Oral.susp 400 Mg PO PRN BID PRN Tylenol (Acetaminophen) 325 Mg Tablet 2 Tab PO PRN Q6HRS PRN Tylenol (Acetaminophen) 325 Mg Tablet 2 Tab PO PRN Q6HRS PRN Restasis (Cyclosporine) 1 Each Droperette 1 Drop EACHEYE BID Multivitamins (Multivitamin) 1 Each Tablet 1 Tab PO DAILY Miconazole Nitrate 45 Gm Cream.appl 45 Gm VG Women's Laxative (Bisacodyl) 5 Mg Tablet 5 Mg PO Aspirin 325 Mg Tablet 1 Tab PO DAILY Calcium 600 + Vit D 400 Softgl (Calcium Carbonate/Vitamin D3) 1 Each Capsule 1 Each PO Docusate Sodium 50 Mg/5 Ml Liquid 50 Mg PO Zofran (Ondansetron Hcl) 4 Mg Tablet 1 Tab PO Q6HRS Vitals/I & O Vital Sign - Last 24 Hours 11/23/17 11/23/17 11/23/17 11/24/17 15:00 20:11 22:10 03:45 Temp 97.7 97.9 97.4 97.7 97.9 97.4 Pulse 78 85 77 Resp 14 21 20 B/P (MAP) 119/53 (75) 131/67 (88) 119/55 (76) Pulse Ox 92 92 100 O2 Delivery Room Air Room Air Room Air Room Air 11/24/17 11/24/17 11/24/17 07:00 08:00 11:00 Temp 97.2 97.0 97.2 97.0 Pulse 76 71 Resp 18 18 B/P (MAP) 135/52 (79) 89/57 (68) Pulse Ox 98 98 O2 Delivery Room Air Room Air Room Air Intake and Output 11/23/17 11/23/17 11/24/17 15:00 23:00 07:00 Intake Total 100 ml 220 ml 1520 ml Output Total 550 ml Balance 100 ml -330 ml 1520 ml Nutrition Consultation Dietary Evaluation: Recommendations by RD: Increase Calorie Intake, Protein supplementation Comments: Pt is NPO initated nutrition via PEG Expected Outcomes/Goals: tolerate TF at goal wt maintainance Interpretation of weight loss: >1-2% in 1 week Malnutrition Findings: Body Fat Depletion (Non Severe: Mild Depletion Weight Status: Underweight KALEY GREY MD Nov 24, 2017 12:06
[2017-11-24] MEDS: POTASSIUM CL 20MEQ D5-0.45NACL 1,000 ML IV SCH ×2 (12:37→21:22)
[2017-11-24 15:00] VITALS: BP 96/54
[2017-11-24 19:56] VITALS: BP 101/47
[2017-11-24] MEDS: traZODone 50 MG TABLET. PO SCH (21:23)
[2017-11-24] MEDS: MIRTAZAPINE 15 MG TABLET PO SCH (21:23)
[2017-11-24 23:22] VITALS: BP 129/59
[2017-11-25] MEDS: PIPERACILLIN/TAZOBACTAM 2.25 GM in IV NORMAL SALINE 50ML 50 ML IV SCH ×5 (00:08→23:48)
[2017-11-25] MEDS: ONDANSETRON ODT 4 MG TAB.RAPDIS. PO SCH ×5 (00:08→23:48)
[2017-11-25 04:02] VITALS: BP 135/71
[2017-11-25] MEDS: POTASSIUM CL 20MEQ D5-0.45NACL 1,000 ML IV SCH ×3 (06:00→23:48)
[2017-11-25] MEDS: LEVOTHYROXINE 25 MCG TABLET. PO SCH (06:00)
[2017-11-25 07:00] VITALS: BP 110/66
--- NOTE | 2017-11-25 08:39 | PDOC ---
PULMONARY PROGRESS NOTES Subjective appears comfortable. open eyes w verbal stimuli, doesn't follow my commands, at bedside Vitals Vital Signs Date Time Temp Pulse Resp B/P (MAP) Pulse Ox O2 Delivery O2 Flow Rate FiO2 11/25/17 07:00 96.6 72 18 110/66 (81) 94 Room Air 96.6 General: Alert, No acute distress Lungs: Crackles Cardiovascular: S1, S2 Abdomen: Soft, Non-tender Neuro Exam: Alert Extremities: No Edema Skin: Warm Labs Laboratory Tests Test 11/24/17 05:20 White Blood Count 12.7 x10^3/uL (4.0-11.0) Red Blood Count 3.01 x10^6/uL (3.50-5.40) Hemoglobin 9.8 g/dL (12.0-15.5) Hematocrit 28.6 % (36.0-47.0) Mean Corpuscular Volume 95 fL (79-100) Mean Corpuscular Hemoglobin 33 pg (25-35) Mean Corpuscular Hemoglobin Concent 34 g/dL (31-37) Red Cell Distribution Width 12.8 % (11.5-14.5) Platelet Count 355 x10^3/uL (140-400) Neutrophils (%) (Auto) 78 % (31-73) Lymphocytes (%) (Auto) 12 % (24-48) Monocytes (%) (Auto) 8 % (0-9) Eosinophils (%) (Auto) 1 % (0-3) Basophils (%) (Auto) 0 % (0-3) Neutrophils # (Auto) 9.9 x10^3uL (1.8-7.7) Lymphocytes # (Auto) 1.5 x10^3/uL (1.0-4.8) Monocytes # (Auto) 1.1 x10^3/uL (0.0-1.1) Eosinophils # (Auto) 0.2 x10^3/uL (0.0-0.7) Basophils # (Auto) 0.0 x10^3/uL (0.0-0.2) Sodium Level 134 mmol/L (136-145) Potassium Level 4.3 mmol/L (3.5-5.1) Chloride Level 102 mmol/L (98-107) Carbon Dioxide Level 25 mmol/L (21-32) Anion Gap 7 (6-14) Blood Urea Nitrogen 31 mg/dL (7-20) Creatinine 1.3 mg/dL (0.6-1.0) Estimated GFR (Cockcroft-Gault) 38.6 Glucose Level 137 mg/dL (70-99) Calcium Level 8.2 mg/dL (8.5-10.1) Medications Active Scripts Medications Dose Route/Sig Max Daily Dose Days Date Category Transderm-Scop (Scopolamine) 1 Each Patch.td72 1 Patch TP Q3DAYS 11/21/17 Reported Levothyroxine Sodium 25 Mcg Tablet 1 Tab PO DAILY 11/21/17 Reported Trifluoperazine Hcl 5 Mg Tablet 5 Mg PO DAILY 11/21/17 Reported Loperamide (Loperamide Hcl) 2 Mg Tablet 4 Mg PO PRN Q1HR PRN 11/21/17 Reported Remeron (Mirtazapine) 15 Mg Tablet 1 Tab PO DAILY 11/21/17 Reported Fluvoxamine Maleate 100 Mg Tablet 1 Tab PO DAILY 11/21/17 Reported Trazodone Hcl 50 Mg Tablet 1 Tab PO QHS 11/21/17 Reported Fibersource Hn Liquid (Nutrit Supp/Inulin/Fos/Fiber) 1,500 Ml Liquid 1,500 Ml PO Q8HRS 11/21/17 Reported Maalox Maximum Strength Susp (Mag Hydrox/Al Hydrox/Simeth) 355 Ml Oral.susp 355 Ml PO PRN Q6HRS PRN 11/21/17 Reported Maalox Maximum Strength Susp (Mag Hydrox/Al Hydrox/Simeth) 355 Ml Oral.susp 355 Ml PO 11/21/17 Reported Milk Of Magnesia (Magnesium Hydroxide) 400 Mg/5 Ml Oral.susp 400 Mg PO PRN BID PRN 11/21/17 Reported Tylenol (Acetaminophen) 325 Mg Tablet 2 Tab PO PRN Q6HRS PRN 11/21/17 Reported Tylenol (Acetaminophen) 325 Mg Tablet 2 Tab PO PRN Q6HRS PRN 11/21/17 Reported Restasis (Cyclosporine) 1 Each Droperette 1 Drop EACHEYE BID 11/21/17 Reported Multivitamins (Multivitamin) 1 Each Tablet 1 Tab PO DAILY 11/21/17 Reported Miconazole Nitrate 45 Gm Cream.appl 45 Gm VG 11/21/17 Reported Women's Laxative (Bisacodyl) 5 Mg Tablet 5 Mg PO 11/21/17 Reported Aspirin 325 Mg Tablet 1 Tab PO DAILY 11/21/17 Reported Calcium 600 + Vit D 400 Softgl (Calcium Carbonate/Vitamin D3) 1 Each Capsule 1 Each PO 11/21/17 Reported Docusate Sodium 50 Mg/5 Ml Liquid 50 Mg PO 11/21/17 Reported Zofran (Ondansetron Hcl) 4 Mg Tablet 1 Tab PO Q6HRS 11/21/17 Reported Impression . 1. Abnormal chest x-ray suggesting prominent interstitial markings; however, clinically she appears to be dry with azotemia. Clinically, less likely congestive heart failure, CT chest reviewed. c/w basal pneumonia. 2. Low grade fever, resolved 3. Acute kidney injury. Related to dehydration. 4. Hyponatremia, improving. 5. Severe protein-calorie malnutrition. Plan . 1. Continue antibiotics per Infectious Disease. 2. Noncontrast CT chest c/w pneumonia. no CHF 3. monitor off lasix 4. Follow renal function. 5. Follow sodium. kyara w rn, her ABRAHAM DELATORRE MD Nov 25, 2017 08:39
[2017-11-25] MEDS: cycloSPORINE 0.05% OPTH 1 DROP DROPERETTE OU SCH ×2 (08:50→21:30)
[2017-11-25] MEDS: LINEZOLID 600 MG TABLET PO SCH ×2 (08:50→21:30)
[2017-11-25] MEDS: DOCUSATE 100 MG/10 ML SOLUTION. PO SCH (08:50)
[2017-11-25] MEDS: ASPIRIN 325 MG TABLET PO SCH (08:51)
[2017-11-25] MEDS: TRIFLUOPERAZINE 5 MG PO SCH (08:51)
[2017-11-25] MEDS: MULTIVITAMIN with MINERAL TABLET. PO SCH (08:51)
[2017-11-25] MEDS: SCOPOLAMINE 1.5MG PATCH. TD SCH (08:52)
--- NOTE | 2017-11-25 09:50 | PDOC ---
Infectious Disease Note Subjective Subjective nonverbal Vital Sign Vital Signs Vital Signs Date Time Temp Pulse Resp B/P (MAP) Pulse Ox O2 Delivery O2 Flow Rate FiO2 11/25/17 07:00 96.6 72 18 110/66 (81) 94 Room Air 96.6 Physical Exam PHYSICAL EXAM CONSTITUTIONAL: She is in bed. She is in no acute distress. She opens her eyes. She smiled. Very alert NECK: Without JVD. LUNGS: Decreased in the bases. HEART: S1, S2. ABDOMEN: Soft. PEG tube in place. No guarding or rebound. : Morris in place EXTREMITIES: Without clubbing or cyanosis. Trace edema. SKIN: Warm to touch. She has multiple ecchymoses and superficial wound, but no gross rash. NEUROLOGIC: She is minimally responsive and aphasic apart from opening her eye Labs Micro Microbiology 11/21/17 Blood Culture - Preliminary, Resulted NO GROWTH AFTER [address] chest IMPRESSION: 1. In the bilateral basilar lower lobes there is mild peribronchial thickening and patchy consolidations suggestive of bronchitis and early bronchopneumonia versus atelectasis. 2. Mild cardiomegaly. No pleural effusion or interstitial edema. 3. Small hiatal hernia. Objective Assessment UTI- POA 11/21 -Proteus Leukocytosis - stable TERRY - better today ? bronchopneumonia on CT Bactrim allergy Multiple superficial wounds S/p Large late acute left MCA infarct MRI 11/11 Plan Plan of Care Cont Zosyn/Zyvox for bronchopulm process F/u labs and cults Clinically improved D/w CATALINA CHARLES MD Nov 25, 2017 09:50
[2017-11-25 10:56] VITALS: BP 100/65
--- NOTE | 2017-11-25 11:19 | PDOC ---
PROGRESS NOTES Chief Complaint Chief Complaint acute metabolic encephalopathy, lethargy on prior CVA and dysphonia sepsis pneumonia Urinary tract infection present on admission, Multiple superficial wounds. 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 She is in no acute distress. She opens her eyes. She smiled. Very alert NECK: Without JVD. LUNGS: Decreased in the bases. HEART: S1, S2. ABDOMEN: Soft. PEG tube in place. No guarding or rebound. : Morris in place EXTREMITIES: Without clubbing or cyanosis. Trace edema. SKIN: Warm to touch. She has multiple ecchymoses and superficial wound, but no gross rash. NEUROLOGIC: She is minimally responsive and aphasic apart from opening her eye General: Cooperative, mild distress Heart: Regular rate, Gallops Lungs: Crackles Abdomen: Soft, No tenderness Extremities: No clubbing, No cyanosis, No edema Review of Systems Review of Systems no Assessment and Plan Assessmemt and Plan Problems Medical Problems: (1) Hyponatremia Status: Acute (2) Pneumonia Status: Acute (3) UTI (urinary tract infection) Status: Acute Comment Review of Relevant I have reviewed the following items tom (where applicable) has been applied. Labs Laboratory Tests Test 11/24/17 05:20 White Blood Count 12.7 x10^3/uL (4.0-11.0) Red Blood Count 3.01 x10^6/uL (3.50-5.40) Hemoglobin 9.8 g/dL (12.0-15.5) Hematocrit 28.6 % (36.0-47.0) Mean Corpuscular Volume 95 fL (79-100) Mean Corpuscular Hemoglobin 33 pg (25-35) Mean Corpuscular Hemoglobin Concent 34 g/dL (31-37) Red Cell Distribution Width 12.8 % (11.5-14.5) Platelet Count 355 x10^3/uL (140-400) Neutrophils (%) (Auto) 78 % (31-73) Lymphocytes (%) (Auto) 12 % (24-48) Monocytes (%) (Auto) 8 % (0-9) Eosinophils (%) (Auto) 1 % (0-3) Basophils (%) (Auto) 0 % (0-3) Neutrophils # (Auto) 9.9 x10^3uL (1.8-7.7) Lymphocytes # (Auto) 1.5 x10^3/uL (1.0-4.8) Monocytes # (Auto) 1.1 x10^3/uL (0.0-1.1) Eosinophils # (Auto) 0.2 x10^3/uL (0.0-0.7) Basophils # (Auto) 0.0 x10^3/uL (0.0-0.2) Sodium Level 134 mmol/L (136-145) Potassium Level 4.3 mmol/L (3.5-5.1) Chloride Level 102 mmol/L (98-107) Carbon Dioxide Level 25 mmol/L (21-32) Anion Gap 7 (6-14) Blood Urea Nitrogen 31 mg/dL (7-20) Creatinine 1.3 mg/dL (0.6-1.0) Estimated GFR (Cockcroft-Gault) 38.6 Glucose Level 137 mg/dL (70-99) Calcium Level 8.2 mg/dL (8.5-10.1) Microbiology 11/21/17 Blood Culture - Preliminary, Resulted NO GROWTH AFTER 3 DAYS 11/21/17 Urine Culture - Preliminary, Resulted 11/21/17 Urine Culture Result 1 (ATUL) - Preliminary, Resulted Medications Current Medications Vancomycin HCl 250 ml @ 250 mls/hr 1X ONCE IV Last administered on 11/21/17at 23:26; Start 11/21/17 at 20:00; Stop 11/21/17 at 20:59; Status DC Piperacillin Sod/ Tazobactam Sod 4.5 gm/Sodium Chloride 100 ml @ 200 mls/hr 1X ONCE IV ; Start 11/21/17 at 20:00; Stop 11/21/17 at 20:29; Status Cancel Piperacillin Sod/ Tazobactam Sod 3.375 gm/Sodium Chloride 50 ml @ 100 mls/hr ONCE ONCE IV Last administered on 11/21/17at 20:35; Start 11/21/17 at 20:00; Stop 11/21/17 at 20:29; Status DC Ondansetron HCl (Zofran) 4 mg PRN Q8HRS PRN IV NAUSEA/VOMITING; Start 11/21/17 at 20:45; Stop 11/22/17 at 20:44; Status DC Fentanyl Citrate (Fentanyl 2ml Vial) 50 mcg PRN Q1HR PRN IV PAIN; Start at 20:45; Stop 11/22/17 at 20:44; Status DC Acetaminophen (Tylenol) 650 mg PRN Q4HRS PRN PO FEVER; Start 11/21/17 at 20:45; Stop 11/22/17 at 20:44; Status Cancel Potassium Chloride/Dextrose/ Sod Cl 1,000 ml @ 100 mls/hr Q10H IV Last administered on 11/25/17at 06:00; Start 11/21/17 at 23:00 Acetaminophen (Tylenol) 650 mg PRN Q6HRS PRN PO FEVER; Start 11/22/17 at 07:15 Acetaminophen (Tylenol) 650 mg PRN Q6HRS PRN PO PAIN; Start 11/22/17 at 07:15; Status UNV Aspirin (Anum Aspirin) 325 mg DAILY PO Last administered on 11/25/17at 08:51; Start 11/22/17 at 09:00 Cyclosporine (Restasis) 1 drop BID OU Last administered on 11/25/17at 08:50; Start 11/22/17 at 09:00 Docusate Sodium (Colace Solution) 50 mg DAILY PO Last administered on at 08:50; Start 11/22/17 at 09:00 Al Hydroxide/Mg Hydroxide (Mylanta Plus Xs) 30 ml PRN Q6HRS PRN PO HEARTBURN / GAS; Start 11/22/17 at 07:15 Magnesium Hydroxide (Milk Of Magnesia) 400 mg PRN BID PRN PO CONSTIPATION; Start 11/22/17 at 07:15 Trazodone HCl (Desyrel) 50 mg QHS PO Last administered on 11/24/17 21:23; Start 11/22/17 at 21:00 Fluvoxamine Maleate (Luvox) 100 mg DAILY PO Last administered on 11/25/17 08: 51; Start 11/22/17 at 09:00 Levothyroxine Sodium (Synthroid) 25 mcg DAILY07 PO Last administered on 06:00; Start 11/22/17 at 07:30 Loperamide HCl (Imodium) 2 mg PRN Q15MIN PRN PO DIARRHEA; Start 11/22/17 at 07: 15; Stop 11/22/17 at 07:15; Status DC Mirtazapine (Remeron) 15 mg QHS PO Last administered on 11/24/17 21:23; Start 11/22/17 at 21:00 Multivitamins (Thera M Plus) 1 tab DAILY PO Last administered on 11/25/17 08: 51; Start 11/22/17 at 09:00 Non-Formulary Medication (Nutrit Supp/ Inulin/Fos/Fiber (Fibersource Hn Liquid) ) 1,500 ml Q8HRS PO ; Start 11/22/17 at 14:00; Status UNV Ondansetron HCl (Zofran Odt) 4 mg Q6HRS PO Last administered on 11/25/17 06:00 ; Start 11/22/17 at 07:30 Scopolamine (Transderm-Scop) 1 patch Q3DAYS TD Last administered on 11/25/17at 08:52; Start 11/22/17 at 09:00 Trifluoperazine HCl (Stelazine) 5 mg DAILY PO Last administered on 11/25/17 08 :51; Start 11/22/17 at 09:00 Piperacillin Sod/ Tazobactam Sod (Zosyn Per Pharmacy) 1 each PRN DAILY PRN MC SEE COMMENTS; Start 11/22/17 at 07:15 Loperamide HCl (Imodium) 4 mg PRN Q1HR PRN PO DIARRHEA; Start 11/22/17 at 07:15 Piperacillin Sod/ Tazobactam Sod 2.25 gm/Sodium Chloride 50 ml @ 100 mls/hr Q6HRS IV Last administered on 11/25/17at 06:01; Start 11/22/17 at 07:30 Furosemide (Lasix) 20 mg DAILY IVP Last administered on 11/22/17at 13:00; Start 11/22/17 at 11:30; Stop 11/23/17 at 12:31; Status DC Vancomycin HCl (Vanco Per Pharmacy) 1 each PRN DAILY PRN MC SEE COMMENTS Last administered on 11/22/17at 13:19; Start 11/22/17 at 11:00; Stop 11/23/17 at 11:29; Status DC Vancomycin HCl 750 mg/Sodium Chloride 250 ml @ 250 mls/hr Q36H IV ; Start 11/23 at 11:00; Stop 11/23/17 at 11:29; Status DC Vancomycin HCl (Vancomycin Trough Level) 1 each 1X ONCE MC ; Start 11/24/17 at 22:30; Stop 11/24/17 at 22:31; Status Cancel Ondansetron HCl (Zofran) 4 mg PRN Q6HRS PRN IV NAUSEA/VOMITING 1ST IV CHOICE; Start 11/23/17 at 08:30 Linezolid (Zyvox) 600 mg BID PO Last administered on 11/25/17at 08:50; Start 01/31 at 21:00 Active Scripts Active Reported Transderm-Scop (Scopolamine) 1 Each Patch.td72 1 Patch TP Q3DAYS Levothyroxine Sodium 25 Mcg Tablet 1 Tab PO DAILY Trifluoperazine Hcl 5 Mg Tablet 5 Mg PO DAILY Loperamide (Loperamide Hcl) 2 Mg Tablet 4 Mg PO PRN Q1HR PRN Remeron (Mirtazapine) 15 Mg Tablet 1 Tab PO DAILY Fluvoxamine Maleate 100 Mg Tablet 1 Tab PO DAILY Trazodone Hcl 50 Mg Tablet 1 Tab PO QHS Fibersource Hn Liquid (Nutrit Supp/Inulin/Fos/Fiber) 1,500 Ml Liquid 1,500 Ml PO Q8HRS Maalox Maximum Strength Susp (Mag Hydrox/Al Hydrox/Simeth) 355 Ml Oral.susp 355 Ml PO PRN Q6HRS PRN Maalox Maximum Strength Susp (Mag Hydrox/Al Hydrox/Simeth) 355 Ml Oral.susp 355 Ml PO Milk Of Magnesia (Magnesium Hydroxide) 400 Mg/5 Ml Oral.susp 400 Mg PO PRN BID PRN Tylenol (Acetaminophen) 325 Mg Tablet 2 Tab PO PRN Q6HRS PRN Tylenol (Acetaminophen) 325 Mg Tablet 2 Tab PO PRN Q6HRS PRN Restasis (Cyclosporine) 1 Each Droperette 1 Drop EACHEYE BID Multivitamins (Multivitamin) 1 Each Tablet 1 Tab PO DAILY Miconazole Nitrate 45 Gm Cream.appl 45 Gm VG Women's Laxative (Bisacodyl) 5 Mg Tablet 5 Mg PO Aspirin 325 Mg Tablet 1 Tab PO DAILY Calcium 600 + Vit D 400 Softgl (Calcium Carbonate/Vitamin D3) 1 Each Capsule 1 Each PO Docusate Sodium 50 Mg/5 Ml Liquid 50 Mg PO Zofran (Ondansetron Hcl) 4 Mg Tablet 1 Tab PO Q6HRS Vitals/I & O Vital Sign - Last 24 Hours 11/24/17 11/24/17 11/24/17 11/24/17 15:00 19:56 19:57 23:22 Temp 97.2 96.3 97.7 97.2 96.3 97.7 Pulse 95 74 72 Resp 20 18 19 B/P (MAP) 96/54 (68) 101/47 (65) 129/59 (82) Pulse Ox 98 93 93 O2 Delivery Room Air Room Air Room Air Room Air 11/25/17 11/25/17 11/25/17 11/25/17 03:59 04:02 07:00 08:00 Temp 97.6 96.6 97.6 96.6 Pulse 75 72 Resp 18 18 B/P (MAP) 135/71 (92) 110/66 (81) Pulse Ox 93 94 O2 Delivery Room Air Room Air Room Air Room Air 11/25/17 10:56 Temp 97.5 97.5 Pulse 74 Resp 18 B/P (MAP) 100/65 (77) Pulse Ox 95 O2 Delivery Room Air Intake and Output 11/24/17 11/24/17 11/25/17 15:00 23:00 07:00 Intake Total 130 ml 250 ml 1780 ml Output Total 1100 ml 1300 ml Balance 130 ml -850 ml 480 ml Nutrition Consultation Dietary Evaluation: Recommendations by RD: Increase Calorie Intake, Protein supplementation Comments: Pt is NPO initated nutrition via PEG Expected Outcomes/Goals: tolerate TF at goal wt maintainance Interpretation of weight loss: >1-2% in 1 week Malnutrition Findings: Body Fat Depletion (Non Severe: Mild Depletion Weight Status: Underweight KALEY GREY MD Nov 25, 2017 11:19
[2017-11-25 14:53] VITALS: BP 124/75
[2017-11-25 19:00] VITALS: BP 109/60
[2017-11-25] MEDS: MIRTAZAPINE 15 MG TABLET PO SCH (21:30)
[2017-11-25] MEDS: traZODone 50 MG TABLET. PO SCH (21:30)
[2017-11-25 23:00] VITALS: BP 105/61
[2017-11-26 02:55] VITALS: BP 126/78
[2017-11-26 05:49] LABS: BASO # 0.1 x10^3/uL (0.0-0.2); BASO % 0 % (0-3); EOS # 0.4 x10^3/uL (0.0-0.7); EOS % 3 % (0-3); HEMATOCRIT 29.9 % (36.0-47.0); HEMOGLOBIN 9.9 g/dL (12.0-15.5); LYMPH # 1.5 x10^3/uL (1.0-4.8); LYMPH % 10 % (24-48); MEAN CORPUSCULAR HEMOGLOBIN 32 pg (25-35); MEAN CORPUSCULAR HGB CONC 33 g/dL (31-37); MEAN CORPUSCULAR VOLUME 95 fL (79-100); MONO # 1.2 x10^3/uL (0.0-1.1); MONO % 8 % (0-9); NEUT # 12.5 x10^3uL (1.8-7.7); NEUT % 80 % (31-73); PLATELET COUNT 336 x10^3/uL (140-400); RED BLOOD COUNT 3.14 x10^6/uL (3.50-5.40); RED CELL DISTRIBUTION WIDTH 12.8 % (11.5-14.5); WHITE BLOOD COUNT 15.7 x10^3/uL (4.0-11.0)
[2017-11-26] MEDS: LEVOTHYROXINE 25 MCG TABLET. PO SCH (05:49)
[2017-11-26] MEDS: PIPERACILLIN/TAZOBACTAM 2.25 GM in IV NORMAL SALINE 50ML 50 ML IV SCH ×4 (05:50→23:20)
[2017-11-26] MEDS: ONDANSETRON ODT 4 MG TAB.RAPDIS. PO SCH ×4 (05:50→23:21)
[2017-11-26 05:58] LABS: ALBUMIN 1.9 g/dL (3.4-5.0); ALBUMIN/GLOBULIN RATIO 0.5 (1.0-1.7); CALCIUM 7.7 mg/dL (8.5-10.1); CREATININE 1.1 mg/dL (0.6-1.0); GFR 46.8; POTASSIUM 4.7 mmol/L (3.5-5.1); TOTAL BILIRUBIN 0.2 mg/dL (0.2-1.0)
[2017-11-26 07:00] VITALS: BP 154/79
[2017-11-26] MEDS: DOCUSATE 100 MG/10 ML SOLUTION. PO SCH (09:00)
[2017-11-26] MEDS: TRIFLUOPERAZINE 5 MG PO SCH (09:00)
[2017-11-26] MEDS: MULTIVITAMIN with MINERAL TABLET. PO SCH (09:06)
[2017-11-26] MEDS: ASPIRIN 325 MG TABLET PO SCH (09:06)
[2017-11-26] MEDS: cycloSPORINE 0.05% OPTH 1 DROP DROPERETTE OU SCH ×2 (09:06→21:09)
[2017-11-26] MEDS: LINEZOLID 600 MG TABLET PO SCH ×2 (09:06→21:09)
--- NOTE | 2017-11-26 09:58 | PDOC ---
Infectious Disease Note Subjective Subjective nonverbal ROS ROS no n/v soft stool Vital Sign Vital Signs Vital Signs Date Time Temp Pulse Resp B/P (MAP) Pulse Ox O2 Delivery O2 Flow Rate FiO2 11/26/17 07:00 97.8 78 16 154/79 (104) 92 Room Air 97.8 Physical Exam PHYSICAL EXAM CONSTITUTIONAL: She is in bed. She is in no acute distress. She opens her eyes. She smiled. Very alert NECK: Without JVD. LUNGS: Decreased in the bases. HEART: S1, S2. ABDOMEN: Soft. PEG tube in place. No guarding or rebound. : Morris in place EXTREMITIES: Without clubbing or cyanosis. Trace edema. SKIN: Warm to touch. She has multiple ecchymoses and superficial wound, but no gross rash. NEUROLOGIC: She is minimally responsive and aphasic apart from opening her eye Labs Lab Laboratory Tests Test 11/26/17 05:20 White Blood Count 15.7 x10^3/uL (4.0-11.0) Red Blood Count 3.14 x10^6/uL (3.50-5.40) Hemoglobin 9.9 g/dL (12.0-15.5) Hematocrit 29.9 % (36.0-47.0) Mean Corpuscular Volume 95 fL (79-100) Mean Corpuscular Hemoglobin 32 pg (25-35) Mean Corpuscular Hemoglobin Concent 33 g/dL (31-37) Red Cell Distribution Width 12.8 % (11.5-14.5) Platelet Count 336 x10^3/uL (140-400) Neutrophils (%) (Auto) 80 % (31-73) Lymphocytes (%) (Auto) 10 % (24-48) Monocytes (%) (Auto) 8 % (0-9) Eosinophils (%) (Auto) 3 % (0-3) Basophils (%) (Auto) 0 % (0-3) Neutrophils # (Auto) 12.5 x10^3uL (1.8-7.7) Lymphocytes # (Auto) 1.5 x10^3/uL (1.0-4.8) Monocytes # (Auto) 1.2 x10^3/uL (0.0-1.1) Eosinophils # (Auto) 0.4 x10^3/uL (0.0-0.7) Basophils # (Auto) 0.1 x10^3/uL (0.0-0.2) Sodium Level 134 mmol/L (136-145) Potassium Level 4.7 mmol/L (3.5-5.1) Chloride Level 103 mmol/L (98-107) Carbon Dioxide Level 24 mmol/L (21-32) Anion Gap 7 (6-14) Blood Urea Nitrogen 18 mg/dL (7-20) Creatinine 1.1 mg/dL (0.6-1.0) Estimated GFR (Cockcroft-Gault) 46.8 BUN/Creatinine Ratio 16 (6-20) Glucose Level 143 mg/dL (70-99) Calcium Level 7.7 mg/dL (8.5-10.1) Total Bilirubin 0.2 mg/dL (0.2-1.0) Aspartate Amino Transf (AST/SGOT) 94 U/L (15-37) Alanine Aminotransferase (ALT/SGPT) 116 U/L (14-59) Alkaline Phosphatase 66 U/L (46-116) Total Protein 6.0 g/dL (6.4-8.2) Albumin 1.9 g/dL (3.4-5.0) Albumin/Globulin Ratio 0.5 (1.0-1.7) Micro Microbiology 11/21/17 Blood Culture - Preliminary, Resulted NO GROWTH AFTER 4 DAYS 11/21/17 Urine Culture - Preliminary, Resulted 11/21/17 Urine Culture Result 1 (ATUL) - Preliminary, Resulted Objective Assessment UTI- POA 11/21 -Proteus Leukocytosis - TERRY - better today ? bronchopneumonia on CT Bactrim allergy Multiple superficial wounds S/p Large late acute left MCA infarct MRI 11/11 Plan Plan of Care Cont Zosyn/Zyvox F/u labs and cults Clinically improved D/w wbc worse, check c diff, may need ct abd JORDANA IRIZARRY MD Nov 26, 2017 09:58
[2017-11-26 11:05] VITALS: BP 119/66
--- NOTE | 2017-11-26 11:38 | PDOC ---
PROGRESS NOTES Chief Complaint Chief Complaint acute metabolic encephalopathy, lethargy on prior CVA and dysphonia sepsis pneumonia Urinary tract infection present on admission, Multiple superficial wounds. 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 difficile ordered Continue the rest Over all prog poor Vitals Vitals Vital Signs Date Time Temp Pulse Resp B/P (MAP) Pulse Ox O2 Delivery O2 Flow Rate FiO2 11/26/17 11:05 97.7 65 16 119/66 (83) 95 Room Air 97.7 Physical Exam Physical Exam CONSTITUTIONAL: She is in bed. She is in no acute distress. She opens her eyes. She smiled. Very alert NECK: Without JVD. LUNGS: Decreased in the bases. HEART: S1, S2. ABDOMEN: Soft. PEG tube in place. No guarding or rebound. : Morris in place EXTREMITIES: Without clubbing or cyanosis. Trace edema. SKIN: Warm to touch. She has multiple ecchymoses and superficial wound, but no gross rash. NEUROLOGIC: She is minimally responsive and aphasic apart from opening her eye General: Cooperative, mild distress Heart: Regular rate, Gallops Lungs: Crackles Abdomen: Soft, No tenderness Extremities: No clubbing, No cyanosis, No edema Labs LABS Laboratory Tests Test 11/26/17 05:20 White Blood Count 15.7 x10^3/uL (4.0-11.0) Red Blood Count 3.14 x10^6/uL (3.50-5.40) Hemoglobin 9.9 g/dL (12.0-15.5) Hematocrit 29.9 % (36.0-47.0) Mean Corpuscular Volume 95 fL (79-100) Mean Corpuscular Hemoglobin 32 pg (25-35) Mean Corpuscular Hemoglobin Concent 33 g/dL (31-37) Red Cell Distribution Width 12.8 % (11.5-14.5) Platelet Count 336 x10^3/uL (140-400) Neutrophils (%) (Auto) 80 % (31-73) Lymphocytes (%) (Auto) 10 % (24-48) Monocytes (%) (Auto) 8 % (0-9) Eosinophils (%) (Auto) 3 % (0-3) Basophils (%) (Auto) 0 % (0-3) Neutrophils # (Auto) 12.5 x10^3uL (1.8-7.7) Lymphocytes # (Auto) 1.5 x10^3/uL (1.0-4.8) Monocytes # (Auto) 1.2 x10^3/uL (0.0-1.1) Eosinophils # (Auto) 0.4 x10^3/uL (0.0-0.7) Basophils # (Auto) 0.1 x10^3/uL (0.0-0.2) Sodium Level 134 mmol/L (136-145) Potassium Level 4.7 mmol/L (3.5-5.1) Chloride Level 103 mmol/L (98-107) Carbon Dioxide Level 24 mmol/L (21-32) Anion Gap 7 (6-14) Blood Urea Nitrogen 18 mg/dL (7-20) Creatinine 1.1 mg/dL (0.6-1.0) Estimated GFR (Cockcroft-Gault) 46.8 BUN/Creatinine Ratio 16 (6-20) Glucose Level 143 mg/dL (70-99) Calcium Level 7.7 mg/dL (8.5-10.1) Total Bilirubin 0.2 mg/dL (0.2-1.0) Aspartate Amino Transf (AST/SGOT) 94 U/L (15-37) Alanine Aminotransferase (ALT/SGPT) 116 U/L (14-59) Alkaline Phosphatase 66 U/L (46-116) Total Protein 6.0 g/dL (6.4-8.2) Albumin 1.9 g/dL (3.4-5.0) Albumin/Globulin Ratio 0.5 (1.0-1.7) Review of Systems Review of Systems dementia hence limited ROS Assessment and Plan Assessmemt and Plan Problems Medical Problems: (1) Hyponatremia Status: Acute (2) Pneumonia Status: Acute (3) UTI (urinary tract infection) Status: Acute Comment Review of Relevant I have reviewed the following items tom (where applicable) has been applied. Labs Laboratory Tests Test 11/26/17 05:20 White Blood Count 15.7 x10^3/uL (4.0-11.0) Red Blood Count 3.14 x10^6/uL (3.50-5.40) Hemoglobin 9.9 g/dL (12.0-15.5) Hematocrit 29.9 % (36.0-47.0) Mean Corpuscular Volume 95 fL (79-100) Mean Corpuscular Hemoglobin 32 pg (25-35) Mean Corpuscular Hemoglobin Concent 33 g/dL (31-37) Red Cell Distribution Width 12.8 % (11.5-14.5) Platelet Count 336 x10^3/uL (140-400) Neutrophils (%) (Auto) 80 % (31-73) Lymphocytes (%) (Auto) 10 % (24-48) Monocytes (%) (Auto) 8 % (0-9) Eosinophils (%) (Auto) 3 % (0-3) Basophils (%) (Auto) 0 % (0-3) Neutrophils # (Auto) 12.5 x10^3uL (1.8-7.7) Lymphocytes # (Auto) 1.5 x10^3/uL (1.0-4.8) Monocytes # (Auto) 1.2 x10^3/uL (0.0-1.1) Eosinophils # (Auto) 0.4 x10^3/uL (0.0-0.7) Basophils # (Auto) 0.1 x10^3/uL (0.0-0.2) Sodium Level 134 mmol/L (136-145) Potassium Level 4.7 mmol/L (3.5-5.1) Chloride Level 103 mmol/L (98-107) Carbon Dioxide Level 24 mmol/L (21-32) Anion Gap 7 (6-14) Blood Urea Nitrogen 18 mg/dL (7-20) Creatinine 1.1 mg/dL (0.6-1.0) Estimated GFR (Cockcroft-Gault) 46.8 BUN/Creatinine Ratio 16 (6-20) Glucose Level 143 mg/dL (70-99) Calcium Level 7.7 mg/dL (8.5-10.1) Total Bilirubin 0.2 mg/dL (0.2-1.0) Aspartate Amino Transf (AST/SGOT) 94 U/L (15-37) Alanine Aminotransferase (ALT/SGPT) 116 U/L (14-59) Alkaline Phosphatase 66 U/L (46-116) Total Protein 6.0 g/dL (6.4-8.2) Albumin 1.9 g/dL (3.4-5.0) Albumin/Globulin Ratio 0.5 (1.0-1.7) Laboratory Tests Test 11/26/17 05:20 White Blood Count 15.7 x10^3/uL (4.0-11.0) Red Blood Count 3.14 x10^6/uL (3.50-5.40) Hemoglobin 9.9 g/dL (12.0-15.5) Hematocrit 29.9 % (36.0-47.0) Mean Corpuscular Volume 95 fL (79-100) Mean Corpuscular Hemoglobin 32 pg (25-35) Mean Corpuscular Hemoglobin Concent 33 g/dL (31-37) Red Cell Distribution Width 12.8 % (11.5-14.5) Platelet Count 336 x10^3/uL (140-400) Neutrophils (%) (Auto) 80 % (31-73) Lymphocytes (%) (Auto) 10 % (24-48) Monocytes (%) (Auto) 8 % (0-9) Eosinophils (%) (Auto) 3 % (0-3) Basophils (%) (Auto) 0 % (0-3) Neutrophils # (Auto) 12.5 x10^3uL (1.8-7.7) Lymphocytes # (Auto) 1.5 x10^3/uL (1.0-4.8) Monocytes # (Auto) 1.2 x10^3/uL (0.0-1.1) Eosinophils # (Auto) 0.4 x10^3/uL (0.0-0.7) Basophils # (Auto) 0.1 x10^3/uL (0.0-0.2) Sodium Level 134 mmol/L (136-145) Potassium Level 4.7 mmol/L (3.5-5.1) Chloride Level 103 mmol/L (98-107) Carbon Dioxide Level 24 mmol/L (21-32) Anion Gap 7 (6-14) Blood Urea Nitrogen 18 mg/dL (7-20) Creatinine 1.1 mg/dL (0.6-1.0) Estimated GFR (Cockcroft-Gault) 46.8 BUN/Creatinine Ratio 16 (6-20) Glucose Level 143 mg/dL (70-99) Calcium Level 7.7 mg/dL (8.5-10.1) Total Bilirubin 0.2 mg/dL (0.2-1.0) Aspartate Amino Transf (AST/SGOT) 94 U/L (15-37) Alanine Aminotransferase (ALT/SGPT) 116 U/L (14-59) Alkaline Phosphatase 66 U/L (46-116) Total Protein 6.0 g/dL (6.4-8.2) Albumin 1.9 g/dL (3.4-5.0) Albumin/Globulin Ratio 0.5 (1.0-1.7) Microbiology 11/21/17 Blood Culture - Preliminary, Resulted NO GROWTH AFTER 4 DAYS 11/21/17 Urine Culture - Preliminary, Resulted 11/21/17 Urine Culture Result 1 (ATUL) - Preliminary, Resulted Medications Current Medications Vancomycin HCl 250 ml @ 250 mls/hr 1X ONCE IV Last administered on 11/21/17at 23:26; Start 11/21/17 at 20:00; Stop 11/21/17 at 20:59; Status DC Piperacillin Sod/ Tazobactam Sod 4.5 gm/Sodium Chloride 100 ml @ 200 mls/hr 1X ONCE IV ; Start 11/21/17 at 20:00; Stop 11/21/17 at 20:29; Status Cancel Piperacillin Sod/ Tazobactam Sod 3.375 gm/Sodium Chloride 50 ml @ 100 mls/hr ONCE ONCE IV Last administered on 11/21/17at 20:35; Start 11/21/17 at 20:00; Stop 11/21/17 at 20:29; Status DC Ondansetron HCl (Zofran) 4 mg PRN Q8HRS PRN IV NAUSEA/VOMITING; Start 11/21/17 at 20:45; Stop 11/22/17 at 20:44; Status DC Fentanyl Citrate (Fentanyl 2ml Vial) 50 mcg PRN Q1HR PRN IV PAIN; Start at 20:45; Stop 11/22/17 at 20:44; Status DC Acetaminophen (Tylenol) 650 mg PRN Q4HRS PRN PO FEVER; Start 11/21/17 at 20:45; Stop 11/22/17 at 20:44; Status Cancel Potassium Chloride/Dextrose/ Sod Cl 1,000 ml @ 100 mls/hr Q10H IV Last administered on 11/25/17at 23:48; Start 11/21/17 at 23:00 Acetaminophen (Tylenol) 650 mg PRN Q6HRS PRN PO FEVER; Start 11/22/17 at 07:15 Acetaminophen (Tylenol) 650 mg PRN Q6HRS PRN PO PAIN; Start 11/22/17 at 07:15; Status UNV Aspirin (Anum Aspirin) 325 mg DAILY PO Last administered on 11/26/17 09:06; Start 11/22/17 at 09:00 Cyclosporine (Restasis) 1 drop BID OU Last administered on 11/26/17 09:06; Start 11/22/17 at 09:00 Docusate Sodium (Colace Solution) 50 mg DAILY PO Last administered on at 08:50; Start 11/22/17 at 09:00 Al Hydroxide/Mg Hydroxide (Mylanta Plus Xs) 30 ml PRN Q6HRS PRN PO HEARTBURN / GAS; Start 11/22/17 at 07:15 Magnesium Hydroxide (Milk Of Magnesia) 400 mg PRN BID PRN PO CONSTIPATION; Start 11/22/17 at 07:15 Trazodone HCl (Desyrel) 50 mg QHS PO Last administered on 11/25/17 21:30; Start 11/22/17 at 21:00 Fluvoxamine Maleate (Luvox) 100 mg DAILY PO Last administered on 11/26/17 09: 06; Start 11/22/17 at 09:00 Levothyroxine Sodium (Synthroid) 25 mcg DAILY07 PO Last administered on 05:49; Start 11/22/17 at 07:30 Loperamide HCl (Imodium) 2 mg PRN Q15MIN PRN PO DIARRHEA; Start 11/22/17 at 07: 15; Stop 11/22/17 at 07:15; Status DC Mirtazapine (Remeron) 15 mg QHS PO Last administered on 11/25/17at 21:30; Start 11/22/17 at 21:00 Multivitamins (Thera M Plus) 1 tab DAILY PO Last administered on 11/26/17at 09: 06; Start 11/22/17 at 09:00 Non-Formulary Medication (Nutrit Supp/ Inulin/Fos/Fiber (Fibersource Hn Liquid) ) 1,500 ml Q8HRS PO ; Start 11/22/17 at 14:00; Status UNV Ondansetron HCl (Zofran Odt) 4 mg Q6HRS PO Last administered on 11/26/17at 05:50 ; Start 11/22/17 at 07:30 Scopolamine (Transderm-Scop) 1 patch Q3DAYS TD Last administered on 11/25/17at 08:52; Start 11/22/17 at 09:00 Trifluoperazine HCl (Stelazine) 5 mg DAILY PO Last administered on 11/26/17at 09 :00; Start 11/22/17 at 09:00 Piperacillin Sod/ Tazobactam Sod (Zosyn Per Pharmacy) 1 each PRN DAILY PRN MC SEE COMMENTS; Start 11/22/17 at 07:15 Loperamide HCl (Imodium) 4 mg PRN Q1HR PRN PO DIARRHEA; Start 11/22/17 at 07:15 Piperacillin Sod/ Tazobactam Sod 2.25 gm/Sodium Chloride 50 ml @ 100 mls/hr Q6HRS IV Last administered on 11/26/17at 05:50; Start 11/22/17 at 07:30 Furosemide (Lasix) 20 mg DAILY IVP Last administered on 11/22/17at 13:00; Start 11/22/17 at 11:30; Stop 11/23/17 at 12:31; Status DC Vancomycin HCl (Vanco Per Pharmacy) 1 each PRN DAILY PRN MC SEE COMMENTS Last administered on 11/22/17at 13:19; Start 11/22/17 at 11:00; Stop 11/23/17 at 11:29; Status DC Vancomycin HCl 750 mg/Sodium Chloride 250 ml @ 250 mls/hr Q36H IV ; Start 11/23 at 11:00; Stop 11/23/17 at 11:29; Status DC Vancomycin HCl (Vancomycin Trough Level) 1 each 1X ONCE MC ; Start 11/24/17 at 22:30; Stop 11/24/17 at 22:31; Status Cancel Ondansetron HCl (Zofran) 4 mg PRN Q6HRS PRN IV NAUSEA/VOMITING 1ST IV CHOICE; Start 11/23/17 at 08:30 Linezolid (Zyvox) 600 mg BID PO Last administered on 11/26/17at 09:06; Start 01/31 at 21:00 Active Scripts Active Reported Transderm-Scop (Scopolamine) 1 Each Patch.td72 1 Patch TP Q3DAYS Levothyroxine Sodium 25 Mcg Tablet 1 Tab PO DAILY Trifluoperazine Hcl 5 Mg Tablet 5 Mg PO DAILY Loperamide (Loperamide Hcl) 2 Mg Tablet 4 Mg PO PRN Q1HR PRN Remeron (Mirtazapine) 15 Mg Tablet 1 Tab PO DAILY Fluvoxamine Maleate 100 Mg Tablet 1 Tab PO DAILY Trazodone Hcl 50 Mg Tablet 1 Tab PO QHS Fibersource Hn Liquid (Nutrit Supp/Inulin/Fos/Fiber) 1,500 Ml Liquid 1,500 Ml PO Q8HRS Maalox Maximum Strength Susp (Mag Hydrox/Al Hydrox/Simeth) 355 Ml Oral.susp 355 Ml PO PRN Q6HRS PRN Maalox Maximum Strength Susp (Mag Hydrox/Al Hydrox/Simeth) 355 Ml Oral.susp 355 Ml PO Milk Of Magnesia (Magnesium Hydroxide) 400 Mg/5 Ml Oral.susp 400 Mg PO PRN BID PRN Tylenol (Acetaminophen) 325 Mg Tablet 2 Tab PO PRN Q6HRS PRN Tylenol (Acetaminophen) 325 Mg Tablet 2 Tab PO PRN Q6HRS PRN Restasis (Cyclosporine) 1 Each Droperette 1 Drop EACHEYE BID Multivitamins (Multivitamin) 1 Each Tablet 1 Tab PO DAILY Miconazole Nitrate 45 Gm Cream.appl 45 Gm VG Women's Laxative (Bisacodyl) 5 Mg Tablet 5 Mg PO Aspirin 325 Mg Tablet 1 Tab PO DAILY Calcium 600 + Vit D 400 Softgl (Calcium Carbonate/Vitamin D3) 1 Each Capsule 1 Each PO Docusate Sodium 50 Mg/5 Ml Liquid 50 Mg PO Zofran (Ondansetron Hcl) 4 Mg Tablet 1 Tab PO Q6HRS Vitals/I & O Vital Sign - Last 24 Hours 11/25/17 11/25/17 11/25/17 11/25/17 14:53 19:00 20:21 23:00 Temp 97.6 98.1 97.9 97.6 98.1 97.9 Pulse 76 78 74 Resp 18 18 16 B/P (MAP) 124/75 (91) 109/60 (76) 105/61 (76) Pulse Ox 95 95 94 O2 Delivery Room Air Room Air Room Air Room Air 11/26/17 11/26/17 11/26/17 11/26/17 02:55 07:00 08:00 11:05 Temp 98.2 97.8 97.7 98.2 97.8 97.7 Pulse 75 78 65 Resp 18 16 16 B/P (MAP) 126/78 (94) 154/79 (104) 119/66 (83) Pulse Ox 95 92 95 O2 Delivery Room Air Room Air Room Air Room Air Intake and Output 11/25/17 11/25/17 11/26/17 15:00 23:00 07:00 Intake Total 100 ml 220 ml 1660 ml Output Total 850 ml 850 ml Balance 100 ml -630 ml 810 ml Nutrition Consultation Dietary Evaluation: Recommendations by RD: Increase Calorie Intake, Protein supplementation Comments: Pt is NPO initated nutrition via PEG Expected Outcomes/Goals: tolerate TF at goal wt maintainance Interpretation of weight loss: >1-2% in 1 week Malnutrition Findings: Body Fat Depletion (Non Severe: Mild Depletion Weight Status: Underweight ROSEMARIE RICHARDSON MD Nov 26, 2017 11:38
[2017-11-26] MEDS: POTASSIUM CL 20MEQ D5-0.45NACL 1,000 ML IV SCH ×2 (13:00→21:11)
[2017-11-26 14:40] VITALS: BP 113/64
--- NOTE | 2017-11-26 15:46 | PDOC ---
PULMONARY PROGRESS NOTES Subjective appears comfortable. open eyes w verbal stimuli, doesn't follow my commands, daughter at bedside Vitals Vital Signs Date Time Temp Pulse Resp B/P (MAP) Pulse Ox O2 Delivery O2 Flow Rate FiO2 11/26/17 14:40 97.7 75 16 113/64 (80) 94 Room Air 97.7 General: Alert, No acute distress Lungs: Crackles Cardiovascular: S1, S2 Abdomen: Soft, Non-tender Neuro Exam: Alert Extremities: No Edema Skin: Warm Labs Laboratory Tests Test 11/26/17 05:20 White Blood Count 15.7 x10^3/uL (4.0-11.0) Red Blood Count 3.14 x10^6/uL (3.50-5.40) Hemoglobin 9.9 g/dL (12.0-15.5) Hematocrit 29.9 % (36.0-47.0) Mean Corpuscular Volume 95 fL (79-100) Mean Corpuscular Hemoglobin 32 pg (25-35) Mean Corpuscular Hemoglobin Concent 33 g/dL (31-37) Red Cell Distribution Width 12.8 % (11.5-14.5) Platelet Count 336 x10^3/uL (140-400) Neutrophils (%) (Auto) 80 % (31-73) Lymphocytes (%) (Auto) 10 % (24-48) Monocytes (%) (Auto) 8 % (0-9) Eosinophils (%) (Auto) 3 % (0-3) Basophils (%) (Auto) 0 % (0-3) Neutrophils # (Auto) 12.5 x10^3uL (1.8-7.7) Lymphocytes # (Auto) 1.5 x10^3/uL (1.0-4.8) Monocytes # (Auto) 1.2 x10^3/uL (0.0-1.1) Eosinophils # (Auto) 0.4 x10^3/uL (0.0-0.7) Basophils # (Auto) 0.1 x10^3/uL (0.0-0.2) Sodium Level 134 mmol/L (136-145) Potassium Level 4.7 mmol/L (3.5-5.1) Chloride Level 103 mmol/L (98-107) Carbon Dioxide Level 24 mmol/L (21-32) Anion Gap 7 (6-14) Blood Urea Nitrogen 18 mg/dL (7-20) Creatinine 1.1 mg/dL (0.6-1.0) Estimated GFR (Cockcroft-Gault) 46.8 BUN/Creatinine Ratio 16 (6-20) Glucose Level 143 mg/dL (70-99) Calcium Level 7.7 mg/dL (8.5-10.1) Total Bilirubin 0.2 mg/dL (0.2-1.0) Aspartate Amino Transf (AST/SGOT) 94 U/L (15-37) Alanine Aminotransferase (ALT/SGPT) 116 U/L (14-59) Alkaline Phosphatase 66 U/L (46-116) Total Protein 6.0 g/dL (6.4-8.2) Albumin 1.9 g/dL (3.4-5.0) Albumin/Globulin Ratio 0.5 (1.0-1.7) Laboratory Tests Test 11/26/17 05:20 White Blood Count 15.7 x10^3/uL (4.0-11.0) Red Blood Count 3.14 x10^6/uL (3.50-5.40) Hemoglobin 9.9 g/dL (12.0-15.5) Hematocrit 29.9 % (36.0-47.0) Mean Corpuscular Volume 95 fL (79-100) Mean Corpuscular Hemoglobin 32 pg (25-35) Mean Corpuscular Hemoglobin Concent 33 g/dL (31-37) Red Cell Distribution Width 12.8 % (11.5-14.5) Platelet Count 336 x10^3/uL (140-400) Neutrophils (%) (Auto) 80 % (31-73) Lymphocytes (%) (Auto) 10 % (24-48) Monocytes (%) (Auto) 8 % (0-9) Eosinophils (%) (Auto) 3 % (0-3) Basophils (%) (Auto) 0 % (0-3) Neutrophils # (Auto) 12.5 x10^3uL (1.8-7.7) Lymphocytes # (Auto) 1.5 x10^3/uL (1.0-4.8) Monocytes # (Auto) 1.2 x10^3/uL (0.0-1.1) Eosinophils # (Auto) 0.4 x10^3/uL (0.0-0.7) Basophils # (Auto) 0.1 x10^3/uL (0.0-0.2) Sodium Level 134 mmol/L (136-145) Potassium Level 4.7 mmol/L (3.5-5.1) Chloride Level 103 mmol/L (98-107) Carbon Dioxide Level 24 mmol/L (21-32) Anion Gap 7 (6-14) Blood Urea Nitrogen 18 mg/dL (7-20) Creatinine 1.1 mg/dL (0.6-1.0) Estimated GFR (Cockcroft-Gault) 46.8 BUN/Creatinine Ratio 16 (6-20) Glucose Level 143 mg/dL (70-99) Calcium Level 7.7 mg/dL (8.5-10.1) Total Bilirubin 0.2 mg/dL (0.2-1.0) Aspartate Amino Transf (AST/SGOT) 94 U/L (15-37) Alanine Aminotransferase (ALT/SGPT) 116 U/L (14-59) Alkaline Phosphatase 66 U/L (46-116) Total Protein 6.0 g/dL (6.4-8.2) Albumin 1.9 g/dL (3.4-5.0) Albumin/Globulin Ratio 0.5 (1.0-1.7) Medications Active Scripts Medications Dose Route/Sig Max Daily Dose Days Date Category Transderm-Scop (Scopolamine) 1 Each Patch.td72 1 Patch TP Q3DAYS 11/21/17 Reported Levothyroxine Sodium 25 Mcg Tablet 1 Tab PO DAILY 11/21/17 Reported Trifluoperazine Hcl 5 Mg Tablet 5 Mg PO DAILY 11/21/17 Reported Loperamide (Loperamide Hcl) 2 Mg Tablet 4 Mg PO PRN Q1HR PRN 11/21/17 Reported Remeron (Mirtazapine) 15 Mg Tablet 1 Tab PO DAILY 11/21/17 Reported Fluvoxamine Maleate 100 Mg Tablet 1 Tab PO DAILY 11/21/17 Reported Trazodone Hcl 50 Mg Tablet 1 Tab PO QHS 11/21/17 Reported Fibersource Hn Liquid (Nutrit Supp/Inulin/Fos/Fiber) 1,500 Ml Liquid 1,500 Ml PO Q8HRS 11/21/17 Reported Maalox Maximum Strength Susp (Mag Hydrox/Al Hydrox/Simeth) 355 Ml Oral.susp 355 Ml PO PRN Q6HRS PRN 11/21/17 Reported Maalox Maximum Strength Susp (Mag Hydrox/Al Hydrox/Simeth) 355 Ml Oral.susp 355 Ml PO 11/21/17 Reported Milk Of Magnesia (Magnesium Hydroxide) 400 Mg/5 Ml Oral.susp 400 Mg PO PRN BID PRN 11/21/17 Reported Tylenol (Acetaminophen) 325 Mg Tablet 2 Tab PO PRN Q6HRS PRN 11/21/17 Reported Tylenol (Acetaminophen) 325 Mg Tablet 2 Tab PO PRN Q6HRS PRN 11/21/17 Reported Restasis (Cyclosporine) 1 Each Droperette 1 Drop EACHEYE BID 11/21/17 Reported Multivitamins (Multivitamin) 1 Each Tablet 1 Tab PO DAILY 11/21/17 Reported Miconazole Nitrate 45 Gm Cream.appl 45 Gm VG 11/21/17 Reported Women's Laxative (Bisacodyl) 5 Mg Tablet 5 Mg PO 11/21/17 Reported Aspirin 325 Mg Tablet 1 Tab PO DAILY 11/21/17 Reported Calcium 600 + Vit D 400 Softgl (Calcium Carbonate/Vitamin D3) 1 Each Capsule 1 Each PO 11/21/17 Reported Docusate Sodium 50 Mg/5 Ml Liquid 50 Mg PO 11/21/17 Reported Zofran (Ondansetron Hcl) 4 Mg Tablet 1 Tab PO Q6HRS 11/21/17 Reported Impression . 1. basal pneumonia. 2. Low grade fever, resolved 3. Acute kidney injury. Related to dehydration. 4. Hyponatremia, improving. 5. Severe protein-calorie malnutrition. Plan . 1. Continue antibiotics per Infectious Disease. 2. Noncontrast CT chest c/w pneumonia. no CHF 3. monitor off lasix 4. Follow renal function. 5. Follow sodium. discussed w rn, her daughter DPOA. They are ready for hospice. consult palliative care will see LORENA Whiting MD Nov 26, 2017 15:46
--- NOTE | 2017-11-26 16:51 | PDOC2 ---
PALLIATIVE CARE Palliative Care Note Palliative Care Consult requested by Dr. Ibarra to address goals of care/hospice Medical condition per record: Pneumonia, TERRY-improved with hydration, Hyponatremia, severe p/c malnutrition. Per daughter Lashon--pt suffered CVA 2 weeks ago. Feeding tube was started. Copy of AD placed on record. Patient is . Resident of [place] along with Daughter Pat lives locally and one daughter lives in [facility]. Patient sitting up in chair. Smiles. No verbal response to questions. Plan Family meeting tomorrow at 1300 LASHON SANCHEZ Nov 26, 2017 16:51
[2017-11-26 19:00] VITALS: BP 130/78
[2017-11-26] MEDS: traZODone 50 MG TABLET. PO SCH (21:09)
[2017-11-26] MEDS: MIRTAZAPINE 15 MG TABLET PO SCH (21:09)
[2017-11-26 23:00] VITALS: BP 147/92
[2017-11-27 03:00] VITALS: BP 149/90
[2017-11-27] MEDS: LEVOTHYROXINE 25 MCG TABLET. PO SCH (05:19)
[2017-11-27] MEDS: PIPERACILLIN/TAZOBACTAM 2.25 GM in IV NORMAL SALINE 50ML 50 ML IV SCH ×2 (05:19→11:43)
[2017-11-27] MEDS: ONDANSETRON ODT 4 MG TAB.RAPDIS. PO SCH ×3 (05:20→18:00)
[2017-11-27 05:55] LABS: BASO # 0.1 x10^3/uL (0.0-0.2); BASO % 1 % (0-3); EOS # 0.6 x10^3/uL (0.0-0.7); EOS % 4 % (0-3); HEMATOCRIT 28.9 % (36.0-47.0); HEMOGLOBIN 9.7 g/dL (12.0-15.5); LYMPH # 1.7 x10^3/uL (1.0-4.8); LYMPH % 11 % (24-48); MEAN CORPUSCULAR HEMOGLOBIN 32 pg (25-35); MEAN CORPUSCULAR HGB CONC 34 g/dL (31-37); MEAN CORPUSCULAR VOLUME 95 fL (79-100); MONO # 0.9 x10^3/uL (0.0-1.1); MONO % 6 % (0-9); NEUT % 78 % (31-73); PLATELET COUNT 333 x10^3/uL (140-400); RED BLOOD COUNT 3.03 x10^6/uL (3.50-5.40); RED CELL DISTRIBUTION WIDTH 13.1 % (11.5-14.5); WHITE BLOOD COUNT 15.4 x10^3/uL (4.0-11.0)
[2017-11-27 06:13] LABS: CALCIUM 8.2 mg/dL (8.5-10.1); CREATININE 1.1 mg/dL (0.6-1.0); GFR 46.8; POTASSIUM 4.8 mmol/L (3.5-5.1)
[2017-11-27 07:00] VITALS: BP 117/69
[2017-11-27] MEDS: TRIFLUOPERAZINE 5 MG PO SCH (09:00)
[2017-11-27] MEDS: POTASSIUM CL 20MEQ D5-0.45NACL 1,000 ML IV SCH (09:00)
[2017-11-27] MEDS: DOCUSATE 100 MG/10 ML SOLUTION. PO SCH (09:00)
--- NOTE | 2017-11-27 09:12 | PDOC ---
PROGRESS NOTES Chief Complaint Chief Complaint acute metabolic encephalopathy, lethargy on prior CVA and dysphonia sepsis pneumonia Diarrhea sec to TF (C diff neg) Proteus Urinary tract infection Multiple superficial wounds. 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 difficile is negative-likely from tube feeds, we'll start Imodium EARLIER ENTRY: Smiles to me Mittens out today DNR Son involved in care ID rounded, diarrhea, but on tube feeds White count did come up to 15 from 12- Large MCA in 11/11/17 that left her aphasic and hemiparesis plan: Imodium as needed Continue the rest Over all prog poor FAm meet later 1 PM Cont TF (at goal) Vitals Vitals Vital Signs Date Time Temp Pulse Resp B/P (MAP) Pulse Ox O2 Delivery O2 Flow Rate FiO2 11/27/17 07:00 97.6 86 16 117/69 (85) 90 Room Air 97.6 Physical Exam Physical Exam CONSTITUTIONAL: She is in bed. She is in no acute distress. She opens her eyes. She smiled. Very alert NECK: Without JVD. LUNGS: Decreased in the bases. HEART: S1, S2. ABDOMEN: Soft. PEG tube in place. No guarding or rebound. : Morris in place EXTREMITIES: Without clubbing or cyanosis. Trace edema. SKIN: Warm to touch. She has multiple ecchymoses and superficial wound, but no gross rash. NEUROLOGIC: She is minimally responsive and aphasic apart from opening her eye General: Cooperative, mild distress Heart: Regular rate, Gallops Lungs: Crackles Abdomen: Soft, No tenderness Extremities: No clubbing, No cyanosis, No edema Labs LABS Laboratory Tests Test 11/26/17 11:00 11/27/17 05:02 Clostridium difficile Toxin (PCR) Negative (Negative) White Blood Count 15.4 x10^3/uL (4.0-11.0) Red Blood Count 3.03 x10^6/uL (3.50-5.40) Hemoglobin 9.7 g/dL (12.0-15.5) Hematocrit 28.9 % (36.0-47.0) Mean Corpuscular Volume 95 fL (79-100) Mean Corpuscular Hemoglobin 32 pg (25-35) Mean Corpuscular Hemoglobin Concent 34 g/dL (31-37) Red Cell Distribution Width 13.1 % (11.5-14.5) Platelet Count 333 x10^3/uL (140-400) Neutrophils (%) (Auto) 78 % (31-73) Lymphocytes (%) (Auto) 11 % (24-48) Monocytes (%) (Auto) 6 % (0-9) Eosinophils (%) (Auto) 4 % (0-3) Basophils (%) (Auto) 1 % (0-3) Neutrophils # (Auto) 12.0 x10^3uL (1.8-7.7) Lymphocytes # (Auto) 1.7 x10^3/uL (1.0-4.8) Monocytes # (Auto) 0.9 x10^3/uL (0.0-1.1) Eosinophils # (Auto) 0.6 x10^3/uL (0.0-0.7) Basophils # (Auto) 0.1 x10^3/uL (0.0-0.2) Sodium Level 133 mmol/L (136-145) Potassium Level 4.8 mmol/L (3.5-5.1) Chloride Level 104 mmol/L (98-107) Carbon Dioxide Level 25 mmol/L (21-32) Anion Gap 4 (6-14) Blood Urea Nitrogen 18 mg/dL (7-20) Creatinine 1.1 mg/dL (0.6-1.0) Estimated GFR (Cockcroft-Gault) 46.8 Glucose Level 111 mg/dL (70-99) Calcium Level 8.2 mg/dL (8.5-10.1) Review of Systems Review of Systems Dementia, limited ROS Assessment and Plan Assessmemt and Plan Problems Medical Problems: (1) Hyponatremia Status: Acute (2) Pneumonia Status: Acute (3) UTI (urinary tract infection) Status: Acute Comment Review of Relevant I have reviewed the following items tom (where applicable) has been applied. Labs Laboratory Tests Test 11/26/17 05:20 11/26/17 11:00 11/27/17 05:02 White Blood Count 15.7 x10^3/uL (4.0-11.0) 15.4 x10^3/uL (4.0-11.0) Red Blood Count 3.14 x10^6/uL (3.50-5.40) 3.03 x10^6/uL (3.50-5.40) Hemoglobin 9.9 g/dL (12.0-15.5) 9.7 g/dL (12.0-15.5) Hematocrit 29.9 % (36.0-47.0) 28.9 % (36.0-47.0) Mean Corpuscular Volume 95 fL (79-100) 95 fL (79-100) Mean Corpuscular Hemoglobin 32 pg (25-35) 32 pg (25-35) Mean Corpuscular Hemoglobin Concent 33 g/dL (31-37) 34 g/dL (31-37) Red Cell Distribution Width 12.8 % (11.5-14.5) 13.1 % (11.5-14.5) Platelet Count 336 x10^3/uL (140-400) 333 x10^3/uL (140-400) Neutrophils (%) (Auto) 80 % (31-73) 78 % (31-73) Lymphocytes (%) (Auto) 10 % (24-48) 11 % (24-48) Monocytes (%) (Auto) 8 % (0-9) 6 % (0-9) Eosinophils (%) (Auto) 3 % (0-3) 4 % (0-3) Basophils (%) (Auto) 0 % (0-3) 1 % (0-3) Neutrophils # (Auto) 12.5 x10^3uL (1.8-7.7) 12.0 x10^3uL (1.8-7.7) Lymphocytes # (Auto) 1.5 x10^3/uL (1.0-4.8) 1.7 x10^3/uL (1.0-4.8) Monocytes # (Auto) 1.2 x10^3/uL (0.0-1.1) 0.9 x10^3/uL (0.0-1.1) Eosinophils # (Auto) 0.4 x10^3/uL (0.0-0.7) 0.6 x10^3/uL (0.0-0.7) Basophils # (Auto) 0.1 x10^3/uL (0.0-0.2) 0.1 x10^3/uL (0.0-0.2) Sodium Level 134 mmol/L (136-145) 133 mmol/L (136-145) Potassium Level 4.7 mmol/L (3.5-5.1) 4.8 mmol/L (3.5-5.1) Chloride Level 103 mmol/L (98-107) 104 mmol/L (98-107) Carbon Dioxide Level 24 mmol/L (21-32) 25 mmol/L (21-32) Anion Gap 7 (6-14) 4 (6-14) Blood Urea Nitrogen 18 mg/dL (7-20) 18 mg/dL (7-20) Creatinine 1.1 mg/dL (0.6-1.0) 1.1 mg/dL (0.6-1.0) Estimated GFR (Cockcroft-Gault) 46.8 46.8 BUN/Creatinine Ratio 16 (6-20) Glucose Level 143 mg/dL (70-99) 111 mg/dL (70-99) Calcium Level 7.7 mg/dL (8.5-10.1) 8.2 mg/dL (8.5-10.1) Total Bilirubin 0.2 mg/dL (0.2-1.0) Aspartate Amino Transf (AST/SGOT) 94 U/L (15-37) Alanine Aminotransferase (ALT/SGPT) 116 U/L (14-59) Alkaline Phosphatase 66 U/L (46-116) Total Protein 6.0 g/dL (6.4-8.2) Albumin 1.9 g/dL (3.4-5.0) Albumin/Globulin Ratio 0.5 (1.0-1.7) Clostridium difficile Toxin (PCR) Negative (Negative) Laboratory Tests Test 11/26/17 11:00 11/27/17 05:02 Clostridium difficile Toxin (PCR) Negative (Negative) White Blood Count 15.4 x10^3/uL (4.0-11.0) Red Blood Count 3.03 x10^6/uL (3.50-5.40) Hemoglobin 9.7 g/dL (12.0-15.5) Hematocrit 28.9 % (36.0-47.0) Mean Corpuscular Volume 95 fL (79-100) Mean Corpuscular Hemoglobin 32 pg (25-35) Mean Corpuscular Hemoglobin Concent 34 g/dL (31-37) Red Cell Distribution Width 13.1 % (11.5-14.5) Platelet Count 333 x10^3/uL (140-400) Neutrophils (%) (Auto) 78 % (31-73) Lymphocytes (%) (Auto) 11 % (24-48) Monocytes (%) (Auto) 6 % (0-9) Eosinophils (%) (Auto) 4 % (0-3) Basophils (%) (Auto) 1 % (0-3) Neutrophils # (Auto) 12.0 x10^3uL (1.8-7.7) Lymphocytes # (Auto) 1.7 x10^3/uL (1.0-4.8) Monocytes # (Auto) 0.9 x10^3/uL (0.0-1.1) Eosinophils # (Auto) 0.6 x10^3/uL (0.0-0.7) Basophils # (Auto) 0.1 x10^3/uL (0.0-0.2) Sodium Level 133 mmol/L (136-145) Potassium Level 4.8 mmol/L (3.5-5.1) Chloride Level 104 mmol/L (98-107) Carbon Dioxide Level 25 mmol/L (21-32) Anion Gap 4 (6-14) Blood Urea Nitrogen 18 mg/dL (7-20) Creatinine 1.1 mg/dL (0.6-1.0) Estimated GFR (Cockcroft-Gault) 46.8 Glucose Level 111 mg/dL (70-99) Calcium Level 8.2 mg/dL (8.5-10.1) Microbiology 11/21/17 Blood Culture - Final, Complete NO GROWTH AFTER 5 DAYS 11/21/17 Urine Culture - Final, Complete 11/21/17 Urine Culture Result 1 (ATUL) - Final, Complete 11/21/17 Antimicrobic Susceptibility - Final, Complete Medications Current Medications Vancomycin HCl 250 ml @ 250 mls/hr 1X ONCE IV Last administered on 11/21/17at 23:26; Start 11/21/17 at 20:00; Stop 11/21/17 at 20:59; Status DC Piperacillin Sod/ Tazobactam Sod 4.5 gm/Sodium Chloride 100 ml @ 200 mls/hr 1X ONCE IV ; Start 11/21/17 at 20:00; Stop 11/21/17 at 20:29; Status Cancel Piperacillin Sod/ Tazobactam Sod 3.375 gm/Sodium Chloride 50 ml @ 100 mls/hr ONCE ONCE IV Last administered on 11/21/17at 20:35; Start 11/21/17 at 20:00; Stop 11/21/17 at 20:29; Status DC Ondansetron HCl (Zofran) 4 mg PRN Q8HRS PRN IV NAUSEA/VOMITING; Start 11/21/17 at 20:45; Stop 11/22/17 at 20:44; Status DC Fentanyl Citrate (Fentanyl 2ml Vial) 50 mcg PRN Q1HR PRN IV PAIN; Start at 20:45; Stop 11/22/17 at 20:44; Status DC Acetaminophen (Tylenol) 650 mg PRN Q4HRS PRN PO FEVER; Start 11/21/17 at 20:45; Stop 11/22/17 at 20:44; Status Cancel Potassium Chloride/Dextrose/ Sod Cl 1,000 ml @ 100 mls/hr Q10H IV Last administered on 11/26/17at 21:11; Start 11/21/17 at 23:00 Acetaminophen (Tylenol) 650 mg PRN Q6HRS PRN PO FEVER; Start 11/22/17 at 07:15 Acetaminophen (Tylenol) 650 mg PRN Q6HRS PRN PO PAIN; Start 11/22/17 at 07:15; Status UNV Aspirin (Anum Aspirin) 325 mg DAILY PO Last administered on 11/26/17at 09:06; Start 11/22/17 at 09:00 Cyclosporine (Restasis) 1 drop BID OU Last administered on 11/26/17at 21:09; Start 11/22/17 at 09:00 Docusate Sodium (Colace Solution) 50 mg DAILY PO Last administered on at 08:50; Start 11/22/17 at 09:00 Al Hydroxide/Mg Hydroxide (Mylanta Plus Xs) 30 ml PRN Q6HRS PRN PO HEARTBURN / GAS; Start 11/22/17 at 07:15 Magnesium Hydroxide (Milk Of Magnesia) 400 mg PRN BID PRN PO CONSTIPATION; Start 11/22/17 at 07:15 Trazodone HCl (Desyrel) 50 mg QHS PO Last administered on 11/26/17at 21:09; Start 11/22/17 at 21:00 Fluvoxamine Maleate (Luvox) 100 mg DAILY PO Last administered on 11/26/17at 09: 06; Start 11/22/17 at 09:00 Levothyroxine Sodium (Synthroid) 25 mcg DAILY07 PO Last administered on at 05:19; Start 11/22/17 at 07:30 Loperamide HCl (Imodium) 2 mg PRN Q15MIN PRN PO DIARRHEA; Start 11/22/17 at 07: 15; Stop 11/22/17 at 07:15; Status DC Mirtazapine (Remeron) 15 mg QHS PO Last administered on 11/26/17at 21:09; Start 11/22/17 at 21:00 Multivitamins (Thera M Plus) 1 tab DAILY PO Last administered on 11/26/17at 09: 06; Start 11/22/17 at 09:00 Non-Formulary Medication (Nutrit Supp/ Inulin/Fos/Fiber (Fibersource Hn Liquid) ) 1,500 ml Q8HRS PO ; Start 11/22/17 at 14:00; Status UNV Ondansetron HCl (Zofran Odt) 4 mg Q6HRS PO Last administered on 11/27/17at 05:20 ; Start 11/22/17 at 07:30 Scopolamine (Transderm-Scop) 1 patch Q3DAYS TD Last administered on 11/25/17at 08:52; Start 11/22/17 at 09:00 Trifluoperazine HCl (Stelazine) 5 mg DAILY PO Last administered on 11/26/17at 09 :00; Start 11/22/17 at 09:00 Piperacillin Sod/ Tazobactam Sod (Zosyn Per Pharmacy) 1 each PRN DAILY PRN MC SEE COMMENTS; Start 11/22/17 at 07:15 Loperamide HCl (Imodium) 4 mg PRN Q1HR PRN PO DIARRHEA; Start 11/22/17 at 07:15 Piperacillin Sod/ Tazobactam Sod 2.25 gm/Sodium Chloride 50 ml @ 100 mls/hr Q6HRS IV Last administered on 11/27/17at 05:19; Start 11/22/17 at 07:30 Furosemide (Lasix) 20 mg DAILY IVP Last administered on 11/22/17at 13:00; Start 11/22/17 at 11:30; Stop 11/23/17 at 12:31; Status DC Vancomycin HCl (Vanco Per Pharmacy) 1 each PRN DAILY PRN MC SEE COMMENTS Last administered on 11/22/17at 13:19; Start 11/22/17 at 11:00; Stop 11/23/17 at 11:29; Status DC Vancomycin HCl 750 mg/Sodium Chloride 250 ml @ 250 mls/hr Q36H IV ; Start 11/23 at 11:00; Stop 11/23/17 at 11:29; Status DC Vancomycin HCl (Vancomycin Trough Level) 1 each 1X ONCE MC ; Start 11/24/17 at 22:30; Stop 11/24/17 at 22:31; Status Cancel Ondansetron HCl (Zofran) 4 mg PRN Q6HRS PRN IV NAUSEA/VOMITING 1ST IV CHOICE; Start 11/23/17 at 08:30 Linezolid (Zyvox) 600 mg BID PO Last administered on 11/26/17at 21:09; Start 01/31 at 21:00 Active Scripts Active Reported Transderm-Scop (Scopolamine) 1 Each Patch.td72 1 Patch TP Q3DAYS Levothyroxine Sodium 25 Mcg Tablet 1 Tab PO DAILY Trifluoperazine Hcl 5 Mg Tablet 5 Mg PO DAILY Loperamide (Loperamide Hcl) 2 Mg Tablet 4 Mg PO PRN Q1HR PRN Remeron (Mirtazapine) 15 Mg Tablet 1 Tab PO DAILY Fluvoxamine Maleate 100 Mg Tablet 1 Tab PO DAILY Trazodone Hcl 50 Mg Tablet 1 Tab PO QHS Fibersource Hn Liquid (Nutrit Supp/Inulin/Fos/Fiber) 1,500 Ml Liquid 1,500 Ml PO Q8HRS Maalox Maximum Strength Susp (Mag Hydrox/Al Hydrox/Simeth) 355 Ml Oral.susp 355 Ml PO PRN Q6HRS PRN Maalox Maximum Strength Susp (Mag Hydrox/Al Hydrox/Simeth) 355 Ml Oral.susp 355 Ml PO Milk Of Magnesia (Magnesium Hydroxide) 400 Mg/5 Ml Oral.susp 400 Mg PO PRN BID PRN Tylenol (Acetaminophen) 325 Mg Tablet 2 Tab PO PRN Q6HRS PRN Tylenol (Acetaminophen) 325 Mg Tablet 2 Tab PO PRN Q6HRS PRN Restasis (Cyclosporine) 1 Each Droperette 1 Drop EACHEYE BID Multivitamins (Multivitamin) 1 Each Tablet 1 Tab PO DAILY Miconazole Nitrate 45 Gm Cream.appl 45 Gm VG Women's Laxative (Bisacodyl) 5 Mg Tablet 5 Mg PO Aspirin 325 Mg Tablet 1 Tab PO DAILY Calcium 600 + Vit D 400 Softgl (Calcium Carbonate/Vitamin D3) 1 Each Capsule 1 Each PO Docusate Sodium 50 Mg/5 Ml Liquid 50 Mg PO Zofran (Ondansetron Hcl) 4 Mg Tablet 1 Tab PO Q6HRS Vitals/I & O Vital Sign - Last 24 Hours 11/26/17 11/26/17 11/26/17 11/26/17 11:05 14:40 19:00 20:10 Temp 97.7 97.7 98.1 97.7 97.7 98.1 Pulse 65 75 80 Resp 16 16 18 B/P (MAP) 119/66 (83) 113/64 (80) 130/78 (95) Pulse Ox 95 94 92 O2 Delivery Room Air Room Air Room Air Room Air 11/26/17 11/27/17 11/27/17 23:00 03:00 07:00 Temp 98.1 99.3 97.6 98.1 99.3 97.6 Pulse 89 90 86 Resp 18 18 16 B/P (MAP) 147/92 (110) 149/90 (109) 117/69 (85) Pulse Ox 92 94 90 O2 Delivery Room Air Room Air Room Air Intake and Output 11/26/17 11/26/17 11/27/17 15:00 23:00 07:00 Intake Total 100 ml 220 ml 580 ml Output Total 850 ml Balance 100 ml -630 ml 580 ml Nutrition Consultation Dietary Evaluation: Recommendations by RD: Increase Calorie Intake, Protein supplementation Comments: continue with recommended TF and flushes Expected Outcomes/Goals: tolerate TF at goal - met, goal ongoing wt maintainance Interpretation of weight loss: >1-2% in 1 week Malnutrition Findings: Body Fat Depletion (Non Severe: Mild Depletion Weight Status: Underweight TERMULO,ROSEMARIE Y MD Nov 27, 2017 09:12
[2017-11-27] MEDS ORDERED: LOPERAMIDE 2 MG CAPSULE PO PRN (09:15)
[2017-11-27] MEDS: cycloSPORINE 0.05% OPTH 1 DROP DROPERETTE OU SCH ×2 (09:33→21:00)
[2017-11-27] MEDS: ASPIRIN 325 MG TABLET PO SCH (09:33)
--- NOTE | 2017-11-27 09:55 | PDOC ---
Infectious Disease Note Subjective Subjective nonverbal ROS ROS no n/v/d/sob Vital Sign Vital Signs Vital Signs Date Time Temp Pulse Resp B/P (MAP) Pulse Ox O2 Delivery O2 Flow Rate FiO2 11/27/17 07:00 97.6 86 16 117/69 (85) 90 Room Air 97.6 Physical Exam PHYSICAL EXAM CONSTITUTIONAL: She is in bed. She is in no acute distress. She opens her eyes. She smiled. Very alert NECK: Without JVD. LUNGS: Decreased in the bases. HEART: S1, S2. ABDOMEN: Soft. PEG tube in place. No guarding or rebound. : Morris in place EXTREMITIES: Without clubbing or cyanosis. Trace edema. SKIN: Warm to touch. She has multiple ecchymoses and superficial wound, but no gross rash. NEUROLOGIC: She is minimally responsive and aphasic apart from opening her eye Labs Lab Laboratory Tests Test 11/26/17 11:00 11/27/17 05:02 Clostridium difficile Toxin (PCR) Negative (Negative) White Blood Count 15.4 x10^3/uL (4.0-11.0) Red Blood Count 3.03 x10^6/uL (3.50-5.40) Hemoglobin 9.7 g/dL (12.0-15.5) Hematocrit 28.9 % (36.0-47.0) Mean Corpuscular Volume 95 fL (79-100) Mean Corpuscular Hemoglobin 32 pg (25-35) Mean Corpuscular Hemoglobin Concent 34 g/dL (31-37) Red Cell Distribution Width 13.1 % (11.5-14.5) Platelet Count 333 x10^3/uL (140-400) Neutrophils (%) (Auto) 78 % (31-73) Lymphocytes (%) (Auto) 11 % (24-48) Monocytes (%) (Auto) 6 % (0-9) Eosinophils (%) (Auto) 4 % (0-3) Basophils (%) (Auto) 1 % (0-3) Neutrophils # (Auto) 12.0 x10^3uL (1.8-7.7) Lymphocytes # (Auto) 1.7 x10^3/uL (1.0-4.8) Monocytes # (Auto) 0.9 x10^3/uL (0.0-1.1) Eosinophils # (Auto) 0.6 x10^3/uL (0.0-0.7) Basophils # (Auto) 0.1 x10^3/uL (0.0-0.2) Sodium Level 133 mmol/L (136-145) Potassium Level 4.8 mmol/L (3.5-5.1) Chloride Level 104 mmol/L (98-107) Carbon Dioxide Level 25 mmol/L (21-32) Anion Gap 4 (6-14) Blood Urea Nitrogen 18 mg/dL (7-20) Creatinine 1.1 mg/dL (0.6-1.0) Estimated GFR (Cockcroft-Gault) 46.8 Glucose Level 111 mg/dL (70-99) Calcium Level 8.2 mg/dL (8.5-10.1) Micro Microbiology 11/21/17 Blood Culture - Preliminary, Resulted NO GROWTH AFTER 4 DAYS 11/21/17 Urine Culture - Preliminary, Resulted 11/21/17 Urine Culture Result 1 (ATUL) - Preliminary, Resulted Objective Assessment UTI- POA 11/21 -Proteus Leukocytosis - TERRY - better today ? bronchopneumonia on CT Bactrim allergy Multiple superficial wounds S/p Large late acute left MCA infarct MRI 11/11 Plan Plan of Care Cont Zosyn/Zyvox F/u labs and cults Clinically improved palliative care in works JORDANA IRIZARRY MD Nov 27, 2017 09:55
[2017-11-27 10:49] VITALS: BP 123/76
--- NOTE | 2017-11-27 10:53 | PDOC ---
PULMONARY PROGRESS NOTES Subjective appears comfortable. open eyes w verbal stimuli, doesn't follow my commands, Vitals Vital Signs Date Time Temp Pulse Resp B/P (MAP) Pulse Ox O2 Delivery O2 Flow Rate FiO2 11/27/17 10:49 97.5 80 16 123/76 (92) 92 Room Air 97.5 General: Alert, No acute distress Lungs: Crackles Cardiovascular: S1, S2 Abdomen: Soft, Non-tender Neuro Exam: Alert Extremities: No Edema Skin: Warm Labs Laboratory Tests Test 11/26/17 05:20 11/26/17 11:00 11/27/17 05:02 White Blood Count 15.7 x10^3/uL (4.0-11.0) 15.4 x10^3/uL (4.0-11.0) Red Blood Count 3.14 x10^6/uL (3.50-5.40) 3.03 x10^6/uL (3.50-5.40) Hemoglobin 9.9 g/dL (12.0-15.5) 9.7 g/dL (12.0-15.5) Hematocrit 29.9 % (36.0-47.0) 28.9 % (36.0-47.0) Mean Corpuscular Volume 95 fL (79-100) 95 fL (79-100) Mean Corpuscular Hemoglobin 32 pg (25-35) 32 pg (25-35) Mean Corpuscular Hemoglobin Concent 33 g/dL (31-37) 34 g/dL (31-37) Red Cell Distribution Width 12.8 % (11.5-14.5) 13.1 % (11.5-14.5) Platelet Count 336 x10^3/uL (140-400) 333 x10^3/uL (140-400) Neutrophils (%) (Auto) 80 % (31-73) 78 % (31-73) Lymphocytes (%) (Auto) 10 % (24-48) 11 % (24-48) Monocytes (%) (Auto) 8 % (0-9) 6 % (0-9) Eosinophils (%) (Auto) 3 % (0-3) 4 % (0-3) Basophils (%) (Auto) 0 % (0-3) 1 % (0-3) Neutrophils # (Auto) 12.5 x10^3uL (1.8-7.7) 12.0 x10^3uL (1.8-7.7) Lymphocytes # (Auto) 1.5 x10^3/uL (1.0-4.8) 1.7 x10^3/uL (1.0-4.8) Monocytes # (Auto) 1.2 x10^3/uL (0.0-1.1) 0.9 x10^3/uL (0.0-1.1) Eosinophils # (Auto) 0.4 x10^3/uL (0.0-0.7) 0.6 x10^3/uL (0.0-0.7) Basophils # (Auto) 0.1 x10^3/uL (0.0-0.2) 0.1 x10^3/uL (0.0-0.2) Sodium Level 134 mmol/L (136-145) 133 mmol/L (136-145) Potassium Level 4.7 mmol/L (3.5-5.1) 4.8 mmol/L (3.5-5.1) Chloride Level 103 mmol/L (98-107) 104 mmol/L (98-107) Carbon Dioxide Level 24 mmol/L (21-32) 25 mmol/L (21-32) Anion Gap 7 (6-14) 4 (6-14) Blood Urea Nitrogen 18 mg/dL (7-20) 18 mg/dL (7-20) Creatinine 1.1 mg/dL (0.6-1.0) 1.1 mg/dL (0.6-1.0) Estimated GFR (Cockcroft-Gault) 46.8 46.8 BUN/Creatinine Ratio 16 (6-20) Glucose Level 143 mg/dL (70-99) 111 mg/dL (70-99) Calcium Level 7.7 mg/dL (8.5-10.1) 8.2 mg/dL (8.5-10.1) Total Bilirubin 0.2 mg/dL (0.2-1.0) Aspartate Amino Transf (AST/SGOT) 94 U/L (15-37) Alanine Aminotransferase (ALT/SGPT) 116 U/L (14-59) Alkaline Phosphatase 66 U/L (46-116) Total Protein 6.0 g/dL (6.4-8.2) Albumin 1.9 g/dL (3.4-5.0) Albumin/Globulin Ratio 0.5 (1.0-1.7) Clostridium difficile Toxin (PCR) Negative (Negative) Laboratory Tests Test 11/26/17 11:00 11/27/17 05:02 Clostridium difficile Toxin (PCR) Negative (Negative) White Blood Count 15.4 x10^3/uL (4.0-11.0) Red Blood Count 3.03 x10^6/uL (3.50-5.40) Hemoglobin 9.7 g/dL (12.0-15.5) Hematocrit 28.9 % (36.0-47.0) Mean Corpuscular Volume 95 fL (79-100) Mean Corpuscular Hemoglobin 32 pg (25-35) Mean Corpuscular Hemoglobin Concent 34 g/dL (31-37) Red Cell Distribution Width 13.1 % (11.5-14.5) Platelet Count 333 x10^3/uL (140-400) Neutrophils (%) (Auto) 78 % (31-73) Lymphocytes (%) (Auto) 11 % (24-48) Monocytes (%) (Auto) 6 % (0-9) Eosinophils (%) (Auto) 4 % (0-3) Basophils (%) (Auto) 1 % (0-3) Neutrophils # (Auto) 12.0 x10^3uL (1.8-7.7) Lymphocytes # (Auto) 1.7 x10^3/uL (1.0-4.8) Monocytes # (Auto) 0.9 x10^3/uL (0.0-1.1) Eosinophils # (Auto) 0.6 x10^3/uL (0.0-0.7) Basophils # (Auto) 0.1 x10^3/uL (0.0-0.2) Sodium Level 133 mmol/L (136-145) Potassium Level 4.8 mmol/L (3.5-5.1) Chloride Level 104 mmol/L (98-107) Carbon Dioxide Level 25 mmol/L (21-32) Anion Gap 4 (6-14) Blood Urea Nitrogen 18 mg/dL (7-20) Creatinine 1.1 mg/dL (0.6-1.0) Estimated GFR (Cockcroft-Gault) 46.8 Glucose Level 111 mg/dL (70-99) Calcium Level 8.2 mg/dL (8.5-10.1) Medications Active Scripts Medications Dose Route/Sig Max Daily Dose Days Date Category Transderm-Scop (Scopolamine) 1 Each Patch.td72 1 Patch TP Q3DAYS 11/21/17 Reported Levothyroxine Sodium 25 Mcg Tablet 1 Tab PO DAILY 11/21/17 Reported Trifluoperazine Hcl 5 Mg Tablet 5 Mg PO DAILY 11/21/17 Reported Loperamide (Loperamide Hcl) 2 Mg Tablet 4 Mg PO PRN Q1HR PRN 11/21/17 Reported Remeron (Mirtazapine) 15 Mg Tablet 1 Tab PO DAILY 11/21/17 Reported Fluvoxamine Maleate 100 Mg Tablet 1 Tab PO DAILY 11/21/17 Reported Trazodone Hcl 50 Mg Tablet 1 Tab PO QHS 11/21/17 Reported Fibersource Hn Liquid (Nutrit Supp/Inulin/Fos/Fiber) 1,500 Ml Liquid 1,500 Ml PO Q8HRS 11/21/17 Reported Maalox Maximum Strength Susp (Mag Hydrox/Al Hydrox/Simeth) 355 Ml Oral.susp 355 Ml PO PRN Q6HRS PRN 11/21/17 Reported Maalox Maximum Strength Susp (Mag Hydrox/Al Hydrox/Simeth) 355 Ml Oral.susp 355 Ml PO 11/21/17 Reported Milk Of Magnesia (Magnesium Hydroxide) 400 Mg/5 Ml Oral.susp 400 Mg PO PRN BID PRN 11/21/17 Reported Tylenol (Acetaminophen) 325 Mg Tablet 2 Tab PO PRN Q6HRS PRN 11/21/17 Reported Tylenol (Acetaminophen) 325 Mg Tablet 2 Tab PO PRN Q6HRS PRN 11/21/17 Reported Restasis (Cyclosporine) 1 Each Droperette 1 Drop EACHEYE BID 11/21/17 Reported Multivitamins (Multivitamin) 1 Each Tablet 1 Tab PO DAILY 11/21/17 Reported Miconazole Nitrate 45 Gm Cream.appl 45 Gm VG 11/21/17 Reported Women's Laxative (Bisacodyl) 5 Mg Tablet 5 Mg PO 11/21/17 Reported Aspirin 325 Mg Tablet 1 Tab PO DAILY 11/21/17 Reported Calcium 600 + Vit D 400 Softgl (Calcium Carbonate/Vitamin D3) 1 Each Capsule 1 Each PO 11/21/17 Reported Docusate Sodium 50 Mg/5 Ml Liquid 50 Mg PO 11/21/17 Reported Zofran (Ondansetron Hcl) 4 Mg Tablet 1 Tab PO Q6HRS 11/21/17 Reported Impression . 1. basal pneumonia. 2. Low grade fever, resolved 3. Acute kidney injury. Related to dehydration. 4. Hyponatremia, improving. 5. Severe protein-calorie malnutrition. 6. Mild leukocytosis Plan . 1. Continue antibiotics per Infectious Disease. 2. Noncontrast CT chest c/w pneumonia. no CHF 3. monitor off lasix 4. Follow renal function. 5. Follow sodium. discussed w rn, her daughter DPOA 11/26. They are ready for hospice. consulted palliative care will see prn. No further rec LORENA WALTERS MD Nov 27, 2017 10:53
[2017-11-27] MEDS: MULTIVITAMIN with MINERAL TABLET. PO SCH (11:43)
[2017-11-27] MEDS: LINEZOLID 600 MG TABLET PO SCH (11:45)
--- NOTE | 2017-11-27 14:45 | PDOC2 ---
PALLIATIVE CARE Palliative Care Note Palliative Care Patient opens eyes to verbal stimuli. Does not follow commands Met with patient's Petr, daughter/DPOA Pat and her ; Kimmie daughter per face time.(lives in [place]) Reviewed current medical condition: Hx CVA; pneumonia, UTI; RI, diarrhea. Reviewed patient's wishes as stated in AD. Pepito shared that a feeding tube was put in after her stroke to give her a chance to see if she would get stronger and recover to a meaningful life. Family all agree that she would not want to be "this way and that her directive should be followed" Discussed options; Continue for a period of time with this being a "set-back" vs comfort care and allowing patient to peacefully and naturally. Agree that in spite of all aggressive care patient has not improved. Family has spoke with Yuliana DOMINIQUE at [facility]. They will be able to care for her in their group home care department. Bed available. Family requests [facility]. Outside the Hospital DNR/DNI signed by . Pat daughter/DPOA will be customer contact sales associate. Spoke with Markel DOMINIQUE who will assist in transfer PEPITO SANCHEZ Nov 27, 2017 14:45
--- NOTE | 2017-11-27 14:50 | PDOC3 ---
Discharge Summary Visit Information Date of Admission: Nov 21, 2017 Date of Discharge: Nov 27, 2017 Admitting Diagnosis Comment: Chief Complaint acute metabolic encephalopathy, lethargy on prior CVA and dysphonia sepsis pneumonia Urinary tract infection present on admission, Multiple superficial wounds. 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 Final Diagnosis Problems Medical Problems: (1) Hyponatremia Status: Acute (2) Pneumonia Status: Acute (3) UTI (urinary tract infection) Status: Acute Brief Hospital Course Allergies Allergies Coded Allergies Type Severity Reaction Last Updated Verified sulfamethoxazole Allergy Intermediate 11/13/17 Yes trimethoprim Allergy Intermediate 11/13/17 Yes Vital Signs Vital Signs Date Time Temp Pulse Resp B/P (MAP) Pulse Ox O2 Delivery O2 Flow Rate FiO2 11/27/17 10:49 97.5 80 16 123/76 (92) 92 Room Air 97.5 Lab Results Laboratory Tests Test 11/26/17 05:20 11/26/17 11:00 11/27/17 05:02 White Blood Count 15.7 x10^3/uL (4.0-11.0) 15.4 x10^3/uL (4.0-11.0) Red Blood Count 3.14 x10^6/uL (3.50-5.40) 3.03 x10^6/uL (3.50-5.40) Hemoglobin 9.9 g/dL (12.0-15.5) 9.7 g/dL (12.0-15.5) Hematocrit 29.9 % (36.0-47.0) 28.9 % (36.0-47.0) Mean Corpuscular Volume 95 fL (79-100) 95 fL (79-100) Mean Corpuscular Hemoglobin 32 pg (25-35) 32 pg (25-35) Mean Corpuscular Hemoglobin Concent 33 g/dL (31-37) 34 g/dL (31-37) Red Cell Distribution Width 12.8 % (11.5-14.5) 13.1 % (11.5-14.5) Platelet Count 336 x10^3/uL (140-400) 333 x10^3/uL (140-400) Neutrophils (%) (Auto) 80 % (31-73) 78 % (31-73) Lymphocytes (%) (Auto) 10 % (24-48) 11 % (24-48) Monocytes (%) (Auto) 8 % (0-9) 6 % (0-9) Eosinophils (%) (Auto) 3 % (0-3) 4 % (0-3) Basophils (%) (Auto) 0 % (0-3) 1 % (0-3) Neutrophils # (Auto) 12.5 x10^3uL (1.8-7.7) 12.0 x10^3uL (1.8-7.7) Lymphocytes # (Auto) 1.5 x10^3/uL (1.0-4.8) 1.7 x10^3/uL (1.0-4.8) Monocytes # (Auto) 1.2 x10^3/uL (0.0-1.1) 0.9 x10^3/uL (0.0-1.1) Eosinophils # (Auto) 0.4 x10^3/uL (0.0-0.7) 0.6 x10^3/uL (0.0-0.7) Basophils # (Auto) 0.1 x10^3/uL (0.0-0.2) 0.1 x10^3/uL (0.0-0.2) Sodium Level 134 mmol/L (136-145) 133 mmol/L (136-145) Potassium Level 4.7 mmol/L (3.5-5.1) 4.8 mmol/L (3.5-5.1) Chloride Level 103 mmol/L (98-107) 104 mmol/L (98-107) Carbon Dioxide Level 24 mmol/L (21-32) 25 mmol/L (21-32) Anion Gap 7 (6-14) 4 (6-14) Blood Urea Nitrogen 18 mg/dL (7-20) 18 mg/dL (7-20) Creatinine 1.1 mg/dL (0.6-1.0) 1.1 mg/dL (0.6-1.0) Estimated GFR (Cockcroft-Gault) 46.8 46.8 BUN/Creatinine Ratio 16 (6-20) Glucose Level 143 mg/dL (70-99) 111 mg/dL (70-99) Calcium Level 7.7 mg/dL (8.5-10.1) 8.2 mg/dL (8.5-10.1) Total Bilirubin 0.2 mg/dL (0.2-1.0) Aspartate Amino Transf (AST/SGOT) 94 U/L (15-37) Alanine Aminotransferase (ALT/SGPT) 116 U/L (14-59) Alkaline Phosphatase 66 U/L (46-116) Total Protein 6.0 g/dL (6.4-8.2) Albumin 1.9 g/dL (3.4-5.0) Albumin/Globulin Ratio 0.5 (1.0-1.7) Clostridium difficile Toxin (PCR) Negative (Negative) Laboratory Tests Test 11/27/17 05:02 White Blood Count 15.4 x10^3/uL (4.0-11.0) Red Blood Count 3.03 x10^6/uL (3.50-5.40) Hemoglobin 9.7 g/dL (12.0-15.5) Hematocrit 28.9 % (36.0-47.0) Mean Corpuscular Volume 95 fL (79-100) Mean Corpuscular Hemoglobin 32 pg (25-35) Mean Corpuscular Hemoglobin Concent 34 g/dL (31-37) Red Cell Distribution Width 13.1 % (11.5-14.5) Platelet Count 333 x10^3/uL (140-400) Neutrophils (%) (Auto) 78 % (31-73) Lymphocytes (%) (Auto) 11 % (24-48) Monocytes (%) (Auto) 6 % (0-9) Eosinophils (%) (Auto) 4 % (0-3) Basophils (%) (Auto) 1 % (0-3) Neutrophils # (Auto) 12.0 x10^3uL (1.8-7.7) Lymphocytes # (Auto) 1.7 x10^3/uL (1.0-4.8) Monocytes # (Auto) 0.9 x10^3/uL (0.0-1.1) Eosinophils # (Auto) 0.6 x10^3/uL (0.0-0.7) Basophils # (Auto) 0.1 x10^3/uL (0.0-0.2) Sodium Level 133 mmol/L (136-145) Potassium Level 4.8 mmol/L (3.5-5.1) Chloride Level 104 mmol/L (98-107) Carbon Dioxide Level 25 mmol/L (21-32) Anion Gap 4 (6-14) Blood Urea Nitrogen 18 mg/dL (7-20) Creatinine 1.1 mg/dL (0.6-1.0) Estimated GFR (Cockcroft-Gault) 46.8 Glucose Level 111 mg/dL (70-99) Calcium Level 8.2 mg/dL (8.5-10.1) Brief Hospital Course Ms. Mclean is a 87 old [facility] resident admitted for change in MS from PNA and UTI , I do believe it was klebsiella UTI, co managed wit ID, Refer to my earlier note today, PEG bec of recent CVA that left her aphasic and Rt residual weakness Palliative got involved,family wishes Hospice back to [facility] today, NOt inappropriate decision, no QOL. Dc today [facility] hosp[facility], DNR. To stop TF also Discharge Information Condition at Discharge: Stable Disposition/Orders: D/C to Home w/ Hospice Scheduled Aspirin (Aspirin) 325 Mg Tablet, 1 TAB PO DAILY, #30 Ref 5 (Reported) Entered as Reported by: VIK HELTON on 11/21/172224 Last Action: Continued on 11/22/17703 by KALEY GREY Cyclosporine (Restasis) 1 Each Droperette, 1 DROP EACHEYE BID, #60 Ref 3 ( Reported) Entered as Reported by: VIK HELTON on 11/21/172224 Last Action: Continued on 11/22/17703 by KALEY GREY Fluvoxamine Maleate (Fluvoxamine Maleate) 100 Mg Tablet, 1 TAB PO DAILY, #30 Ref 2 (Reported) Entered as Reported by: VIK HELTON on 11/21/172224 Last Action: Converted on 11/22/17703 by KALEY GREY Levothyroxine Sodium (Levothyroxine Sodium) 25 Mcg Tablet, 1 TAB PO DAILY, #30 Ref 5 (Reported) Entered as Reported by: VIK HELTON on 11/21/172224 Last Action: Converted on 11/22/17703 by KALEY GREY Mirtazapine (Remeron) 15 Mg Tablet, 1 TAB PO DAILY, #30 Ref 1 (Reported) Entered as Reported by: VIK HELTON on 11/21/172224 Last Action: Converted on 11/22/17703 by KALEY GREY Multivitamin (Multivitamins) 1 Each Tablet, 1 TAB PO DAILY, #90 Ref 3 (Reported) Entered as Reported by: VIK HELTON on 11/21/172224 Last Action: Converted on 11/22/17703 by KALEY GREY Nutrit Supp/Inulin/Fos/Fiber (Fibersource Hn Liquid) 1,500 Ml Liquid, 1,500 ML PO Q8HRS, (Reported) Entered as Reported by: VIK HELTON on 11/21/172224 Last Action: Converted on 11/22/17703 by KALEY GREY Ondansetron Hcl (Zofran) 4 Mg Tablet, 1 TAB PO Q6HRS, #20 (Reported) Entered as Reported by: VIK HELTON on 11/21/172224 Last Action: Converted on 11/22/17703 by KALEY GREY Scopolamine (Transderm-Scop) 1 Each Patch.td72, 1 PATCH TP Q3DAYS, #4 (Reported) Entered as Reported by: VIK HELTON on 11/21/172224 Last Action: Converted on 11/22/17703 by KALEY GREY Trazodone Hcl (Trazodone Hcl) 50 Mg Tablet, 1 TAB PO QHS, #30 Ref 1 (Reported) Entered as Reported by: IVK HELTON on 11/21/172224 Last Action: Continued on 11/22/17703 by KALEY GREY Trifluoperazine Hcl (Trifluoperazine Hcl) 5 Mg Tablet, 5 MG PO DAILY, (Reported) Entered as Reported by: VIK HELTON on 11/21/172224 Last Action: Converted on 11/22/17703 by KALEY GREY Scheduled PRN Acetaminophen (Tylenol) 325 Mg Tablet, 2 TAB PO PRN Q6HRS PRN for PAIN, #30 ( Reported) Entered as Reported by: VIK HELTON on 11/21/172224 Last Action: Continued on 11/22/17703 by KALEY GREY Acetaminophen (Tylenol) 325 Mg Tablet, 2 TAB PO PRN Q6HRS PRN for FEVER, #30 ( Reported) Entered as Reported by: VIK HELTON on 11/21/172224 Last Action: Continued on 11/22/17703 by KALEY GREY Loperamide Hcl (Loperamide) 2 Mg Tablet, 4 MG PO PRN Q1HR PRN for DIARRHEA, ( Reported) Entered as Reported by: VIK HELTON on 11/21/172224 Last Action: Converted on 11/22/17703 by KALEY GREY Mag Hydrox/Al Hydrox/Simeth (Maalox Maximum Strength Susp) 355 Ml Oral.susp, 355 ML PO PRN Q6HRS PRN for HEARTBURN / GAS, (Reported) Entered as Reported by: VIK HELTON on 11/21/172224 Last Action: Continued on 11/22/17703 by KALEY GREY Magnesium Hydroxide (Milk Of Magnesia) 400 Mg/5 Ml Oral.susp, 400 MG PO PRN BID PRN for CONSTIPATION, (Reported) Entered as Reported by: VIK HELTON on 11/21/172224 Last Action: Continued on 11/22/17703 by KALEY GREY Miscellaneous Medications Bisacodyl (Women's Laxative) 5 Mg Tablet, 5 MG PO, (Reported) Entered as Reported by: VIK HELTON on 11/21/172224 Last Action: HELD on 11/22/17703 by KALEY GREY Calcium Carbonate/Vitamin D3 (Calcium 600 + Vit D 400 Softgl) 1 Each Capsule, 1 EACH PO, (Reported) Entered as Reported by: VIK HELTON on 11/21/172224 Last Action: HELD on 11/22/17703 by KALEY GREY Docusate Sodium (Docusate Sodium) 50 Mg/5 Ml Liquid, 50 MG PO, (Reported) Entered as Reported by: VIK HELTON on 11/21/172224 Last Action: Continued on 11/22/17703 by KALEY Johnson Hydrox/Al Hydrox/Simeth (Maalox Maximum Strength Susp) 355 Ml Oral.susp, 355 ML PO, (Reported) Entered as Reported by: VIK HELTON on 11/21/172224 Last Action: New Order on 11/21/172224 by VIK HELTON Miconazole Nitrate (Miconazole Nitrate) 45 Gm Cream.appl, 45 GM VG, (Reported) Entered as Reported by: VIK HELTON on 11/21/172224 Last Action: HELD on 11/22/17703 by ROSEMARIE DONG MD Nov 27, 2017 14:50
[2017-11-27 15:06] VITALS: BP 118/68
[2017-11-27 19:00] VITALS: BP 128/78
[2017-11-27] MEDS: traZODone 50 MG TABLET. PO SCH (21:00)
[2017-11-27 23:00] VITALS: BP 137/76
[2017-11-28 03:00] VITALS: BP 150/80
[2017-11-28] MEDS: ONDANSETRON ODT 4 MG TAB.RAPDIS. PO SCH ×2 (06:00)
[2017-11-28 07:00] VITALS: BP 119/75
[2017-11-28] MEDS: cycloSPORINE 0.05% OPTH 1 DROP DROPERETTE OU SCH (08:40)
[2017-11-28] MEDS: ASPIRIN 325 MG TABLET PO SCH (08:40)
[2017-11-28] MEDS: DOCUSATE 100 MG/10 ML SOLUTION. PO SCH (08:40)
[2017-11-28] MEDS: SCOPOLAMINE 1.5MG PATCH. TD SCH (08:40)
--- NOTE | 2017-11-28 10:06 | PDOC ---
Infectious Disease Note Subjective Subjective nonverbal Vital Sign Vital Signs Vital Signs Date Time Temp Pulse Resp B/P (MAP) Pulse Ox O2 Delivery O2 Flow Rate FiO2 11/28/17 07:00 98.0 149 18 119/75 (90) 81 Room Air 98.0 Physical Exam PHYSICAL EXAM CONSTITUTIONAL: She is in bed. She is in no acute distress. She opens her eyes. She smiled. Very alert NECK: Without JVD. LUNGS: Decreased in the bases. HEART: S1, S2. ABDOMEN: Soft. PEG tube in place. No guarding or rebound. : Morris in place EXTREMITIES: Without clubbing or cyanosis. Trace edema. SKIN: Warm to touch. She has multiple ecchymoses and superficial wound, but no gross rash. NEUROLOGIC: She is minimally responsive and aphasic apart from opening her eye Labs Micro Microbiology 11/21/17 Blood Culture - Preliminary, Resulted NO GROWTH AFTER 4 DAYS 11/21/17 Urine Culture - Preliminary, Resulted 11/21/17 Urine Culture Result 1 (ATUL) - Preliminary, Resulted Objective Assessment UTI- POA 11/21 -Proteus Leukocytosis - TRERY - better today ? bronchopneumonia on CT Bactrim allergy Multiple superficial wounds S/p Large late acute left MCA infarct MRI 11/11 Plan Plan of Care hospice decided JORDANA IRIZARRY MD Nov 28, 2017 10:06
[2017-11-28 11:00] VITALS: BP 128/63
--- NOTE | 2017-11-28 11:55 | PDOC3 ---
Discharge Summary Visit Information Date of Admission: Nov 21, 2017 Date of Discharge: Nov 28, 2017 Admitting Diagnosis Comment: Admitting Diagnosis Comment: Chief Complaint acute metabolic encephalopathy, lethargy on prior CVA and dysphonia sepsis pneumonia Urinary tract infection present on admission, Multiple superficial wounds. 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 Final Diagnosis Problems Medical Problems: (1) Hyponatremia Status: Acute (2) Pneumonia Status: Acute (3) UTI (urinary tract infection) Status: Acute Brief Hospital Course Allergies Allergies Coded Allergies Type Severity Reaction Last Updated Verified sulfamethoxazole Allergy Intermediate 11/13/17 Yes trimethoprim Allergy Intermediate 11/13/17 Yes Vital Signs Vital Signs Date Time Temp Pulse Resp B/P (MAP) Pulse Ox O2 Delivery O2 Flow Rate FiO2 11/28/17 07:00 98.0 149 18 119/75 (90) 81 Room Air 98.0 Lab Results Laboratory Tests Test 11/27/17 05:02 White Blood Count 15.4 x10^3/uL (4.0-11.0) Red Blood Count 3.03 x10^6/uL (3.50-5.40) Hemoglobin 9.7 g/dL (12.0-15.5) Hematocrit 28.9 % (36.0-47.0) Mean Corpuscular Volume 95 fL (79-100) Mean Corpuscular Hemoglobin 32 pg (25-35) Mean Corpuscular Hemoglobin Concent 34 g/dL (31-37) Red Cell Distribution Width 13.1 % (11.5-14.5) Platelet Count 333 x10^3/uL (140-400) Neutrophils (%) (Auto) 78 % (31-73) Lymphocytes (%) (Auto) 11 % (24-48) Monocytes (%) (Auto) 6 % (0-9) Eosinophils (%) (Auto) 4 % (0-3) Basophils (%) (Auto) 1 % (0-3) Neutrophils # (Auto) 12.0 x10^3uL (1.8-7.7) Lymphocytes # (Auto) 1.7 x10^3/uL (1.0-4.8) Monocytes # (Auto) 0.9 x10^3/uL (0.0-1.1) Eosinophils # (Auto) 0.6 x10^3/uL (0.0-0.7) Basophils # (Auto) 0.1 x10^3/uL (0.0-0.2) Sodium Level 133 mmol/L (136-145) Potassium Level 4.8 mmol/L (3.5-5.1) Chloride Level 104 mmol/L (98-107) Carbon Dioxide Level 25 mmol/L (21-32) Anion Gap 4 (6-14) Blood Urea Nitrogen 18 mg/dL (7-20) Creatinine 1.1 mg/dL (0.6-1.0) Estimated GFR (Cockcroft-Gault) 46.8 Glucose Level 111 mg/dL (70-99) Calcium Level 8.2 mg/dL (8.5-10.1) Brief Hospital Course Ms. Mclean is a 87 old [sex] who presented with [ ] Ms. Mclean is a 87 old [facility] resident admitted for change in MS from PNA and UTI , I do believe it was klebsiella UTI, co managed wit ID, Refer to my earlier note today, PEG bec of recent CVA that left her aphasic and Rt residual weakness Palliative got involved,family wishes Hospice back to [facility] today, NOt inappropriate decision, no QOL. Dc today [facility] hosp[facility], DNR. To stop TF also Discharge Information Condition at Discharge: Stable Disposition/Orders: Other ([facility] with hospice) Scheduled Aspirin (Aspirin) 325 Mg Tablet, 1 TAB PO DAILY, #30 Ref 5 (Reported) Entered as Reported by: VIK HELTON on 11/21/172224 Last Action: Continued on 11/22/17703 by KALEY GREY Cyclosporine (Restasis) 1 Each Droperette, 1 DROP EACHEYE BID, #60 Ref 3 ( Reported) Entered as Reported by: VIK HELTON on 11/21/172224 Last Action: Continued on 11/22/17703 by KALEY GREY Fluvoxamine Maleate (Fluvoxamine Maleate) 100 Mg Tablet, 1 TAB PO DAILY, #30 Ref 2 (Reported) Entered as Reported by: VIK HELTON on 11/21/172224 Last Action: Converted on 11/22/17703 by KALEY GREY Levothyroxine Sodium (Levothyroxine Sodium) 25 Mcg Tablet, 1 TAB PO DAILY, #30 Ref 5 (Reported) Entered as Reported by: VIK HELTON on 11/21/172224 Last Action: Converted on 11/22/17703 by KALEY GREY Mirtazapine (Remeron) 15 Mg Tablet, 1 TAB PO DAILY, #30 Ref 1 (Reported) Entered as Reported by: VIK HELTON on 11/21/172224 Last Action: Converted on 11/22/17703 by KALEY GREY Multivitamin (Multivitamins) 1 Each Tablet, 1 TAB PO DAILY, #90 Ref 3 (Reported) Entered as Reported by: VIK HELTON on 11/21/172224 Last Action: Converted on 11/22/17703 by KALEY GREY Nutrit Supp/Inulin/Fos/Fiber (Fibersource Hn Liquid) 1,500 Ml Liquid, 1,500 ML PO Q8HRS, (Reported) Entered as Reported by: VIK HELTON on 11/21/172224 Last Action: Converted on 11/22/17703 by KALEY GREY Ondansetron Hcl (Zofran) 4 Mg Tablet, 1 TAB PO Q6HRS, #20 (Reported) Entered as Reported by: VIK HELTON on 11/21/172224 Last Action: Converted on 11/22/17703 by KALEY GREY Scopolamine (Transderm-Scop) 1 Each Patch.td72, 1 PATCH TP Q3DAYS, #4 (Reported) Entered as Reported by: VIK HELTON on 11/21/172224 Last Action: Converted on 11/22/17703 by KALEY GREY Trazodone Hcl (Trazodone Hcl) 50 Mg Tablet, 1 TAB PO QHS, #30 Ref 1 (Reported) Entered as Reported by: VIK HELTON on 11/21/172224 Last Action: Continued on 11/22/17703 by KALEY GREY Trifluoperazine Hcl (Trifluoperazine Hcl) 5 Mg Tablet, 5 MG PO DAILY, (Reported) Entered as Reported by: VIK HELTON on 11/21/172224 Last Action: Converted on 11/22/17703 by KALEY GREY Scheduled PRN Acetaminophen (Tylenol) 325 Mg Tablet, 2 TAB PO PRN Q6HRS PRN for PAIN, #30 ( Reported) Entered as Reported by: VIK HELTON on 11/21/172224 Last Action: Continued on 11/22/17703 by KALEY GREY Acetaminophen (Tylenol) 325 Mg Tablet, 2 TAB PO PRN Q6HRS PRN for FEVER, #30 ( Reported) Entered as Reported by: VIK HELTON on 11/21/172224 Last Action: Continued on 11/22/17703 by KALEY GREY Loperamide Hcl (Loperamide) 2 Mg Tablet, 4 MG PO PRN Q1HR PRN for DIARRHEA, ( Reported) Entered as Reported by: VIK HELTON on 11/21/172224 Last Action: Converted on 11/22/17703 by KALEY GREY Mag Hydrox/Al Hydrox/Simeth (Maalox Maximum Strength Susp) 355 Ml Oral.susp, 355 ML PO PRN Q6HRS PRN for HEARTBURN / GAS, (Reported) Entered as Reported by: VIK HELTON on 11/21/172224 Last Action: Continued on 11/22/17703 by KALEY GREY Magnesium Hydroxide (Milk Of Magnesia) 400 Mg/5 Ml Oral.susp, 400 MG PO PRN BID PRN for CONSTIPATION, (Reported) Entered as Reported by: VIK HELTON on 11/21/172224 Last Action: Continued on 11/22/17703 by KALEY GREY Miscellaneous Medications Bisacodyl (Women's Laxative) 5 Mg Tablet, 5 MG PO, (Reported) Entered as Reported by: VIK HELTON on 11/21/172224 Last Action: HELD on 11/22/17703 by KALEY GREY Calcium Carbonate/Vitamin D3 (Calcium 600 + Vit D 400 Softgl) 1 Each Capsule, 1 EACH PO, (Reported) Entered as Reported by: VIK HELTON on 11/21/172224 Last Action: HELD on 11/22/17703 by KALEY GREY Docusate Sodium (Docusate Sodium) 50 Mg/5 Ml Liquid, 50 MG PO, (Reported) Entered as Reported by: VIK HELTON on 11/21/172224 Last Action: Continued on 11/22/17703 by KALEY GREY Mag Hydrox/Al Hydrox/Simeth (Maalox Maximum Strength Susp) 355 Ml Oral.susp, 355 ML PO, (Reported) Entered as Reported by: VIK HELTON on 11/21/172224 Last Action: New Order on 11/21/172224 by VIK HELTON Miconazole Nitrate (Miconazole Nitrate) 45 Gm Cream.appl, 45 GM VG, (Reported) Entered as Reported by: VIK HELTON on 11/21/172224 Last Action: HELD on 11/22/17703 by ROSEMARIE DONG MD Nov 28, 2017 11:55
== END 2017-11-28 13:49 | disposition hospice, inpatient (51) | DRG 871 ==
LOC: ER 17:43 → 5 SOUTH 19:48
PROVIDERS: ADMIT Internal Medicine; ATTEND Internal Medicine
DX: A41.9 Sepsis, unspecified organism (principal); E43 Unspecified severe protein-calorie malnutrition; I50.21 Acute systolic (congestive) heart failure; J18.9 Pneumonia, unspecified organism; G93.41 Metabolic encephalopathy; E87.1 Hypo-osmolality and hyponatremia; N39.0 Urinary tract infection, site not specified; Z68.45 Body mass index [BMI] 70 or greater, adult; N17.9 Acute kidney failure, unspecified; I69.351 Hemiplegia and hemiparesis following cerebral infarction affecting right dominant side; Z88.8 Allergy status to other drugs, medicaments and biological substances; Z79.899 Other long term (current) drug therapy; B96.4 Proteus (mirabilis) (morganii) as the cause of diseases classified elsewhere; E78.5 Hyperlipidemia, unspecified; E86.0 Dehydration; F03.90 Unspecified dementia, unspecified severity, without behavioral disturbance, psychotic disturbance, mood disturbance, and anxiety; Z66 Do not resuscitate; M06.9 Rheumatoid arthritis, unspecified; F31.9 Bipolar disorder, unspecified; I25.10 Atherosclerotic heart disease of native coronary artery without angina pectoris; Z96.649 Presence of unspecified artificial hip joint; I69.320 Aphasia following cerebral infarction; Z79.82 Long term (current) use of aspirin; Z82.49 Family history of ischemic heart disease and other diseases of the circulatory system; Z88.2 Allergy status to sulfonamides; Z90.12 Acquired absence of left breast and nipple
CPT/HCPCS: 36415; 36569; 51702; 71045; 71250; 80048; 80053; 81001; 83605; 83690; 83880; 84443; 84484; 85025; 87040; 87086; 87186; 87324; 87641; 93005; 96365; J2543; J3370; Q0162; 92610; 97530; 99285-25